=== PATIENT | female | born 1995 | race Caucasian/White ===

== ENCOUNTER → 2017-07-04 | Outpatient (REF) | payer MEDICARE, MEDICAID ==
[2016-01-11 12:26] VITALS: BMI 21.8
[~2017-07-04] MED LIST: ACET-1966 PO; ALB18R INH; ALBU8.5H12 IH; ALPR-1 PO; ALPR-429 PO; AMLO-96 PO; AMLO2.5T75 PO; AMOX-559 PO; ARIP10TA4 PO; ARIP15TA9 PO; ASPI-839 PO; ATOR10TA24 PO; AZIT-1 PO; AZIT-18 PO; BIRTH CONT; CALC-488 PO; CALC667T3 PO; CELLC500PT PO; CHOL200051 PO; CIN30PT PO; CINA90TA2 PO; CIPR-344 PO; CIPR-345 PO; CLON-392 PO; DIPH-740 PO; DOXA2TAB57 PO; ERGO500014 PO; FLUO-202 PO; FOLI-85 PO; FOLI1CAP19 PO; GUAN2TAB15 PO; HYDR-385 PO; HYDR-4309 PO; LEFL20TA6 PO; LEVO-85 PO; LIDO5CRE13 TP; LOR5/325 PO; MECL12.5 PO; MECL25TA9 PO; MEDR10TA57 PO; MELA3TAB45 PO; METR-1 PO; OLAN10TA25 PO; OLAN15TA23 PO; OLAN2.5T22 PO; OLAN2.5T3 PO; OMEP40CA45 PO; ONDA4TAB PO; ONDA4TAB97 PO; OXYC-865 PO; PANT40TA65 PO; PER PO; POLY17PO25 PO; PRE5 PO; PRED20TA6 PO; PRED5SOL PO; PROM-110 PO; RANI-324 PO; SERT-1 PO; SERT-181 PO; SEVE800T16 PO; SIRO0.5T; SODI453.2 PO; SULF-198 PO; VANC1VIA12 IV; [UNRECOGNIZED DRUG - CODE] PO; [UNRECOGNIZED DRUG - CODE] PO
== END ==
LOC: ZZSENDIN 09:48
PROVIDERS: ATTEND Orthopaedic Surgery Hand Surgery
DX: Z01.812 Encounter for preprocedural laboratory examination (principal)
CPT/HCPCS: 82040; 82247; 82310; 82374; 82435; 82565; 82947; 84075; 84132; 84155; 84295; 84450; 84460; 84520

== ENCOUNTER 2017-07-07 12:08 | Outpatient (RCR) | payer MEDICARE, MEDICAID ==
[2016-01-11 12:26] VITALS: BMI 21.8
[~2017-07-07 12:08] MED LIST changes: -BIRTH CONT; -MEDR10TA57 PO
[2017-07-07] MEDS: DAPTOMYCIN IVPB SCH (17:18)
[2017-07-07] MEDS: NS 0.9% IVPB SCH (17:18)
[2017-07-09] MEDS: DAPTOMYCIN IVPB SCH (17:43)
[2017-07-09] MEDS: NS 0.9% IVPB SCH (17:43)
[2017-07-11] MEDS: DAPTOMYCIN IVPB SCH (17:00)
[2017-07-11] MEDS: NS 0.9% IVPB SCH (17:00)
[2017-07-12] MEDS ORDERED: MEDR10TA57 PO (15:23)
[2017-07-13] MEDS: NS 0.9% IVPB PRN (16:36)
[2017-07-13] MEDS: DAPTOMYCIN IVPB PRN (16:36)
[2017-07-16] MEDS: NS 0.9% IVPB PRN (18:13)
[2017-07-16] MEDS: DAPTOMYCIN IVPB PRN (18:13)
[2017-07-16] MEDS ORDERED: BIRTH CONT (21:06)
[2017-07-21] MEDS: NS 0.9% IVPB PRN (18:22)
[2017-07-21] MEDS: DAPTOMYCIN IVPB PRN (18:22)
[2017-07-21] MEDS ORDERED: ONDA4TAB97 PO (19:57)
[2017-07-21] MEDS ORDERED: PROM-110 PO (19:57)
== END 2017-08-08 12:55 | disposition home or self-care (01) ==
LOC: SPU 12:08
PROVIDERS: ATTEND Orthopaedic Surgery Hand Surgery
DX: A41.9 Sepsis, unspecified organism (principal)
CPT/HCPCS: 96365; J0878; J7050; 85025

== ENCOUNTER → 2017-07-21 09:25 | Outpatient (RCR) | payer MEDICARE, MEDICAID ==
[2016-01-11 12:26] VITALS: Ht 151.6 cm; Wt 55.6 kg
[2016-07-22] MEDS: HEPARIN SOD (PORCINE) LOAD IVP PRN (15:52)
[2016-07-22] MEDS: HEPARIN (PORCINE) 1000 UNIT/ML (DIALYSIS) IVP PRN (15:52)
[2016-07-24] MEDS: HEPARIN (PORCINE) 1000 UNIT/ML (DIALYSIS) IVP PRN (12:46)
[2016-07-24] MEDS: HEPARIN SOD (PORCINE) LOAD IVP PRN (12:46)
[2016-07-26] MEDS: HEPARIN (PORCINE) 1000 UNIT/ML (DIALYSIS) IVP PRN (15:55)
[2016-07-26] MEDS: HEPARIN SOD (PORCINE) LOAD IVP PRN (15:56)
[2016-07-29] MEDS: HEPARIN SOD (PORCINE) LOAD IVP PRN (15:20)
[2016-07-29] MEDS: HEPARIN (PORCINE) 1000 UNIT/ML (DIALYSIS) IVP PRN (15:20)
[2016-07-31] MEDS: HEPARIN (PORCINE) 1000 UNIT/ML (DIALYSIS) IVP PRN (15:24)
[2016-07-31] MEDS: HEPARIN SOD (PORCINE) LOAD IVP PRN (15:24)
[2016-07-31] MEDS: SODIUM FERRIC GLUC 62.5 MG/5ML IVP PRN (15:42)
[2016-07-31 16:55] LABS: PLATELET COUNT, AUTOMATED 191 K/uL (150-450)
[2016-08-05] MEDS: HEPARIN (PORCINE) 1000 UNIT/ML (DIALYSIS) IVP PRN (15:16)
[2016-08-05] MEDS: HEPARIN SOD (PORCINE) LOAD IVP PRN (15:16)
[2016-08-07] MEDS: HEPARIN SOD (PORCINE) LOAD IVP PRN (15:30)
[2016-08-07] MEDS: HEPARIN (PORCINE) 1000 UNIT/ML (DIALYSIS) IVP PRN (15:30)
[2016-08-07] MEDS: PARICALCITOL 2 MCG/ML VIAL IVP PRN (15:58)
[2016-08-09] MEDS: HEPARIN SOD (PORCINE) LOAD IVP PRN (14:29)
[2016-08-09] MEDS: HEPARIN (PORCINE) 1000 UNIT/ML (DIALYSIS) IVP PRN (14:29)
[2016-08-09] MEDS: PARICALCITOL 2 MCG/ML VIAL IVP PRN (15:06)
[2016-08-09] MEDS: DARBEPOETIN ESRD 40MCG/ML IVP PRN (15:06)
[2016-08-12] MEDS: HEPARIN SOD (PORCINE) LOAD IVP PRN (15:28)
[2016-08-12] MEDS: HEPARIN (PORCINE) 1000 UNIT/ML (DIALYSIS) IVP PRN (15:28)
[2016-08-12] MEDS: PARICALCITOL 2 MCG/ML VIAL IVP PRN (15:54)
[2016-08-14] MEDS: HEPARIN (PORCINE) 1000 UNIT/ML (DIALYSIS) IVP PRN (15:23)
[2016-08-14] MEDS: HEPARIN SOD (PORCINE) LOAD IVP PRN (15:23)
[2016-08-14] MEDS: SODIUM FERRIC GLUC 62.5 MG/5ML IVP PRN (15:41)
[2016-08-14] MEDS: PARICALCITOL 2 MCG/ML VIAL IVP PRN (15:42)
[2016-08-16] MEDS: HEPARIN SOD (PORCINE) LOAD IVP PRN (14:07)
[2016-08-16] MEDS: HEPARIN (PORCINE) 1000 UNIT/ML (DIALYSIS) IVP PRN (14:07)
[2016-08-16] MEDS: PARICALCITOL 2 MCG/ML VIAL IVP PRN (14:33)
[2016-08-16] MEDS: DARBEPOETIN ESRD 40MCG/ML IVP PRN (14:34)
[2016-08-19] MEDS: HEPARIN (PORCINE) 1000 UNIT/ML (DIALYSIS) IVP PRN (15:41)
[2016-08-19] MEDS: HEPARIN SOD (PORCINE) LOAD IVP PRN (15:41)
[2016-08-19] MEDS: LIDOCAINE/SOD BICARB 8.4% SYR ID PRN (15:41)
[2016-08-21] MEDS: HEPARIN (PORCINE) 1000 UNIT/ML (DIALYSIS) IVP PRN (15:17)
[2016-08-21] MEDS: HEPARIN SOD (PORCINE) LOAD IVP PRN (15:17)
[2016-08-21] MEDS: PARICALCITOL 2 MCG/ML VIAL IVP PRN (15:48)
[2016-08-23] MEDS: HEPARIN (PORCINE) 1000 UNIT/ML (DIALYSIS) IVP PRN (15:07)
[2016-08-23] MEDS: HEPARIN SOD (PORCINE) LOAD IVP PRN (15:07)
[2016-08-23] MEDS: PARICALCITOL 2 MCG/ML VIAL IVP PRN (15:40)
[2016-08-23] MEDS: DARBEPOETIN ESRD 40MCG/ML IVP PRN (15:41)
[2016-08-26] MEDS: HEPARIN (PORCINE) 1000 UNIT/ML (DIALYSIS) IVP PRN (15:32)
[2016-08-26] MEDS: HEPARIN SOD (PORCINE) LOAD IVP PRN (15:33)
[2016-08-26] MEDS: PARICALCITOL 2 MCG/ML VIAL IVP PRN (16:08)
[2016-08-28] MEDS: HEPARIN SOD (PORCINE) LOAD IVP PRN (15:04)
[2016-08-28] MEDS: HEPARIN (PORCINE) 1000 UNIT/ML (DIALYSIS) IVP PRN (15:04)
[2016-08-28] MEDS: SODIUM FERRIC GLUC 62.5 MG/5ML IVP PRN (15:40)
[2016-08-28] MEDS: PARICALCITOL 2 MCG/ML VIAL IVP PRN (15:40)
[2016-08-30] MEDS: HEPARIN SOD (PORCINE) LOAD IVP PRN (15:30)
[2016-08-30] MEDS: HEPARIN (PORCINE) 1000 UNIT/ML (DIALYSIS) IVP PRN (15:31)
[2016-08-30] MEDS: PARICALCITOL 2 MCG/ML VIAL IVP PRN (15:47)
[2016-08-30] MEDS: DARBEPOETIN ESRD 25 MCG/ML IVP PRN (15:47)
[2016-08-30] MEDS: LOPERAMIDE HCL 2 MG CAP PO PRN (18:03)
[2016-09-02] MEDS: HEPARIN SOD (PORCINE) LOAD IVP PRN (15:23)
[2016-09-02] MEDS: HEPARIN (PORCINE) 1000 UNIT/ML (DIALYSIS) IVP PRN (15:23)
[2016-09-02] MEDS: PARICALCITOL 2 MCG/ML VIAL IVP PRN (15:57)
[2016-09-02] MEDS: LOPERAMIDE HCL 2 MG CAP PO PRN (16:39)
[2016-09-04] MEDS: HEPARIN SOD (PORCINE) LOAD IVP PRN (15:48)
[2016-09-04] MEDS: HEPARIN (PORCINE) 1000 UNIT/ML (DIALYSIS) IVP PRN (15:48)
[2016-09-04] MEDS: PARICALCITOL 2 MCG/ML VIAL IVP PRN (16:06)
[2016-09-04 16:21] LABS: PLATELET COUNT, AUTOMATED 197 K/uL (150-450)
[2016-09-06] MEDS: HEPARIN (PORCINE) 1000 UNIT/ML (DIALYSIS) IVP PRN (15:42)
[2016-09-06] MEDS: HEPARIN SOD (PORCINE) LOAD IVP PRN (15:43)
[2016-09-06] MEDS: PARICALCITOL 2 MCG/ML VIAL IVP PRN (16:11)
[2016-09-06] MEDS: DARBEPOETIN ESRD 25 MCG/ML IVP PRN (16:12)
[2016-09-06] MEDS: LOPERAMIDE HCL 2 MG CAP PO PRN (17:02)
[2016-09-06] MEDS: PROMETHAZINE HCL 25 MG TAB PO PRN (18:08)
[2016-09-09] MEDS: HEPARIN (PORCINE) 1000 UNIT/ML (DIALYSIS) IVP PRN (15:54)
[2016-09-09] MEDS: HEPARIN SOD (PORCINE) LOAD IVP PRN (15:54)
[2016-09-09] MEDS: PARICALCITOL 2 MCG/ML VIAL IVP PRN (16:38)
[2016-09-11] MEDS: HEPARIN SOD (PORCINE) LOAD IVP PRN (15:53)
[2016-09-11] MEDS: HEPARIN (PORCINE) 1000 UNIT/ML (DIALYSIS) IVP PRN (15:53)
[2016-09-11] MEDS: LIDOCAINE/SOD BICARB 8.4% SYR ID PRN (15:57)
[2016-09-11] MEDS: SODIUM FERRIC GLUC 62.5 MG/5ML IVP PRN (17:13)
[2016-09-11] MEDS: PARICALCITOL 2 MCG/ML VIAL IVP PRN (17:13)
[2016-09-13] MEDS: HEPARIN SOD (PORCINE) LOAD IVP PRN (15:33)
[2016-09-13] MEDS: HEPARIN (PORCINE) 1000 UNIT/ML (DIALYSIS) IVP PRN (15:33)
[2016-09-13] MEDS: LIDOCAINE/SOD BICARB 8.4% SYR ID PRN (15:38)
[2016-09-13] MEDS: PARICALCITOL 2 MCG/ML VIAL IVP PRN (16:46)
[2016-09-13] MEDS: DARBEPOETIN ESRD 25 MCG/ML IVP PRN (16:47)
[2016-09-16] MEDS: HEPARIN SOD (PORCINE) LOAD IVP PRN (14:56)
[2016-09-16] MEDS: HEPARIN (PORCINE) 1000 UNIT/ML (DIALYSIS) IVP PRN (14:56)
[2016-09-16] MEDS: LIDOCAINE/SOD BICARB 8.4% SYR ID PRN (15:00)
[2016-09-16] MEDS: PARICALCITOL 2 MCG/ML VIAL IVP PRN (16:12)
[2016-09-18] MEDS: HEPARIN SOD (PORCINE) LOAD IVP PRN (15:52)
[2016-09-18] MEDS: HEPARIN (PORCINE) 1000 UNIT/ML (DIALYSIS) IVP PRN (15:52)
[2016-09-18] MEDS: LIDOCAINE/SOD BICARB 8.4% SYR ID PRN (16:03)
[2016-09-18] MEDS: PARICALCITOL 2 MCG/ML VIAL IVP PRN (16:41)
[2016-09-20] MEDS: HEPARIN SOD (PORCINE) LOAD IVP PRN (15:15)
[2016-09-20] MEDS: HEPARIN (PORCINE) 1000 UNIT/ML (DIALYSIS) IVP PRN (15:16)
[2016-09-20] MEDS: PARICALCITOL 2 MCG/ML VIAL IVP PRN (15:37)
[2016-09-20] MEDS: DARBEPOETIN ESRD 40MCG/ML IVP PRN (15:37)
[2016-09-20] MEDS: LOPERAMIDE HCL 2 MG CAP PO PRN (16:01)
[2016-09-23] MEDS: HEPARIN SOD (PORCINE) LOAD IVP PRN (15:08)
[2016-09-23] MEDS: HEPARIN (PORCINE) 1000 UNIT/ML (DIALYSIS) IVP PRN (15:08)
[2016-09-23] MEDS: LIDOCAINE/SOD BICARB 8.4% SYR ID PRN (15:08)
[2016-09-23] MEDS: PARICALCITOL 2 MCG/ML VIAL IVP PRN (15:28)
[2016-09-25] MEDS: HEPARIN (PORCINE) 1000 UNIT/ML (DIALYSIS) IVP PRN (14:40)
[2016-09-25] MEDS: LIDOCAINE/SOD BICARB 8.4% SYR ID PRN (14:40)
[2016-09-25] MEDS: HEPARIN SOD (PORCINE) LOAD IVP PRN (14:40)
[2016-09-25] MEDS: PARICALCITOL 2 MCG/ML VIAL IVP PRN (14:56)
[2016-09-25] MEDS: SODIUM FERRIC GLUC 62.5 MG/5ML IVP PRN (14:56)
[2016-09-27] MEDS: LIDOCAINE/SOD BICARB 8.4% SYR ID PRN (14:27)
[2016-09-27] MEDS: HEPARIN SOD (PORCINE) LOAD IVP PRN (14:27)
[2016-09-27] MEDS: HEPARIN (PORCINE) 1000 UNIT/ML (DIALYSIS) IVP PRN (14:27)
[2016-09-27] MEDS: PARICALCITOL 2 MCG/ML VIAL IVP PRN (15:15)
[2016-09-27] MEDS: DARBEPOETIN ESRD 40MCG/ML IVP PRN (15:15)
[2016-09-30] MEDS: HEPARIN (PORCINE) 1000 UNIT/ML (DIALYSIS) IVP PRN (14:46)
[2016-09-30] MEDS: HEPARIN SOD (PORCINE) LOAD IVP PRN (14:46)
[2016-09-30] MEDS: LIDOCAINE/SOD BICARB 8.4% SYR ID PRN (14:46)
[2016-09-30] MEDS: PARICALCITOL 2 MCG/ML VIAL IVP PRN (15:11)
[2016-10-02] MEDS: LIDOCAINE/SOD BICARB 8.4% SYR ID PRN (14:39)
[2016-10-02] MEDS: HEPARIN SOD (PORCINE) LOAD IVP PRN (14:39)
[2016-10-02] MEDS: HEPARIN (PORCINE) 1000 UNIT/ML (DIALYSIS) IVP PRN (14:40)
[2016-10-02 15:32] LABS: PLATELET COUNT, AUTOMATED 169 K/uL (150-450)
[2016-10-02] MEDS: PARICALCITOL 2 MCG/ML VIAL IVP PRN (15:39)
[2016-10-04] MEDS: LIDOCAINE/SOD BICARB 8.4% SYR ID PRN (14:55)
[2016-10-04] MEDS: HEPARIN SOD (PORCINE) LOAD IVP PRN (14:56)
[2016-10-04] MEDS: HEPARIN (PORCINE) 1000 UNIT/ML (DIALYSIS) IVP PRN (14:56)
[2016-10-04] MEDS: DARBEPOETIN ESRD 40MCG/ML IVP PRN (15:27)
[2016-10-04] MEDS: PARICALCITOL 2 MCG/ML VIAL IVP PRN (15:27)
[2016-10-07] MEDS: HEPARIN (PORCINE) 1000 UNIT/ML (DIALYSIS) IVP PRN (14:48)
[2016-10-07] MEDS: HEPARIN SOD (PORCINE) LOAD IVP PRN (14:48)
[2016-10-07] MEDS: PARICALCITOL 2 MCG/ML VIAL IVP PRN (15:26)
[2016-10-09] MEDS: HEPARIN (PORCINE) 1000 UNIT/ML (DIALYSIS) IVP PRN (15:10)
[2016-10-09] MEDS: HEPARIN SOD (PORCINE) LOAD IVP PRN (15:10)
[2016-10-09] MEDS: LIDOCAINE/SOD BICARB 8.4% SYR ID PRN (15:12)
[2016-10-09] MEDS: SODIUM FERRIC GLUC 62.5 MG/5ML IVP PRN (15:32)
[2016-10-09] MEDS: PARICALCITOL 2 MCG/ML VIAL IVP PRN (15:32)
[2016-10-11] MEDS: HEPARIN SOD (PORCINE) LOAD IVP PRN (14:10)
[2016-10-11] MEDS: LIDOCAINE/SOD BICARB 8.4% SYR ID PRN (14:10)
[2016-10-11] MEDS: HEPARIN (PORCINE) 1000 UNIT/ML (DIALYSIS) IVP PRN (14:10)
[2016-10-11] MEDS: PARICALCITOL 2 MCG/ML VIAL IVP PRN (14:23)
[2016-10-11] MEDS: DARBEPOETIN ESRD 40MCG/ML IVP PRN (14:24)
[2016-10-14] MEDS: HEPARIN SOD (PORCINE) LOAD IVP PRN (14:53)
[2016-10-14] MEDS: LIDOCAINE/SOD BICARB 8.4% SYR ID PRN (14:53)
[2016-10-14] MEDS: HEPARIN (PORCINE) 1000 UNIT/ML (DIALYSIS) IVP PRN (14:53)
[2016-10-14] MEDS: PARICALCITOL 2 MCG/ML VIAL IVP PRN (15:41)
[2016-10-16] MEDS: LIDOCAINE/SOD BICARB 8.4% SYR ID PRN (14:35)
[2016-10-16] MEDS: HEPARIN (PORCINE) 1000 UNIT/ML (DIALYSIS) IVP PRN (14:35)
[2016-10-16] MEDS: HEPARIN SOD (PORCINE) LOAD IVP PRN (14:35)
[2016-10-16] MEDS: PARICALCITOL 2 MCG/ML VIAL IVP PRN (15:00)
[2016-10-18] MEDS: HEPARIN (PORCINE) 1000 UNIT/ML (DIALYSIS) IVP PRN (14:56)
[2016-10-18] MEDS: HEPARIN SOD (PORCINE) LOAD IVP PRN (14:56)
[2016-10-18] MEDS: PARICALCITOL 2 MCG/ML VIAL IVP PRN (15:30)
[2016-10-18] MEDS: DARBEPOETIN ESRD 40MCG/ML IVP PRN (15:30)
[2016-10-21] MEDS: LIDOCAINE/SOD BICARB 8.4% SYR ID PRN (14:35)
[2016-10-21] MEDS: HEPARIN SOD (PORCINE) LOAD IVP PRN (14:35)
[2016-10-21] MEDS: HEPARIN (PORCINE) 1000 UNIT/ML (DIALYSIS) IVP PRN (14:35)
[2016-10-21] MEDS: PARICALCITOL 2 MCG/ML VIAL IVP PRN (16:12)
[2016-10-23] MEDS: HEPARIN SOD (PORCINE) LOAD IVP PRN (14:32)
[2016-10-23] MEDS: LIDOCAINE/SOD BICARB 8.4% SYR ID PRN (14:32)
[2016-10-23] MEDS: HEPARIN (PORCINE) 1000 UNIT/ML (DIALYSIS) IVP PRN (14:32)
[2016-10-23] MEDS: SODIUM FERRIC GLUC 62.5 MG/5ML IVP PRN (15:31)
[2016-10-23] MEDS: PARICALCITOL 2 MCG/ML VIAL IVP PRN (15:31)
[2016-10-25] MEDS: HEPARIN (PORCINE) 1000 UNIT/ML (DIALYSIS) IVP PRN (13:48)
[2016-10-25] MEDS: HEPARIN SOD (PORCINE) LOAD IVP PRN (13:49)
[2016-10-25] MEDS: LIDOCAINE/SOD BICARB 8.4% SYR ID PRN (13:50)
[2016-10-25] MEDS: PARICALCITOL 2 MCG/ML VIAL IVP PRN (15:01)
[2016-10-25] MEDS: DARBEPOETIN ESRD 40MCG/ML IVP PRN (15:01)
[2016-10-28] MEDS: HEPARIN (PORCINE) 1000 UNIT/ML (DIALYSIS) IVP PRN (13:48)
[2016-10-28] MEDS: HEPARIN SOD (PORCINE) LOAD IVP PRN (13:48)
[2016-10-28] MEDS: LIDOCAINE/SOD BICARB 8.4% SYR ID PRN (13:49)
[2016-10-28] MEDS: PARICALCITOL 2 MCG/ML VIAL IVP PRN (14:25)
[2016-10-30] MEDS: LIDOCAINE/SOD BICARB 8.4% SYR ID PRN (13:47)
[2016-10-30] MEDS: HEPARIN SOD (PORCINE) LOAD IVP PRN (13:47)
[2016-10-30] MEDS: HEPARIN (PORCINE) 1000 UNIT/ML (DIALYSIS) IVP PRN (13:47)
[2016-10-30] MEDS: PARICALCITOL 2 MCG/ML VIAL IVP PRN (14:58)
[2016-11-01] MEDS: HEPARIN (PORCINE) 1000 UNIT/ML (DIALYSIS) IVP PRN (14:08)
[2016-11-01] MEDS: LIDOCAINE/SOD BICARB 8.4% SYR ID PRN (14:08)
[2016-11-01] MEDS: HEPARIN SOD (PORCINE) LOAD IVP PRN (14:08)
[2016-11-01] MEDS: DARBEPOETIN ESRD 40MCG/ML IVP PRN (15:06)
[2016-11-01] MEDS: PARICALCITOL 2 MCG/ML VIAL IVP PRN (15:06)
[2016-11-04] MEDS: HEPARIN (PORCINE) 1000 UNIT/ML (DIALYSIS) IVP PRN (13:31)
[2016-11-04] MEDS: HEPARIN SOD (PORCINE) LOAD IVP PRN (13:31)
[2016-11-04] MEDS: LIDOCAINE/SOD BICARB 8.4% SYR ID PRN (13:31)
[2016-11-04] MEDS: PARICALCITOL 2 MCG/ML VIAL IVP PRN (14:29)
[2016-11-06] MEDS: HEPARIN (PORCINE) 1000 UNIT/ML (DIALYSIS) IVP PRN (14:33)
[2016-11-06] MEDS: LIDOCAINE/SOD BICARB 8.4% SYR ID PRN (14:33)
[2016-11-06] MEDS: HEPARIN SOD (PORCINE) LOAD IVP PRN (14:33)
[2016-11-06] MEDS: SODIUM FERRIC GLUC 62.5 MG/5ML IVP PRN (15:12)
[2016-11-06] MEDS: PARICALCITOL 2 MCG/ML VIAL IVP PRN (15:12)
[2016-11-06 15:24] LABS: PLATELET COUNT, AUTOMATED 175 K/uL (150-450)
[2016-11-08] MEDS: HEPARIN (PORCINE) 1000 UNIT/ML (DIALYSIS) IVP PRN (14:28)
[2016-11-08] MEDS: HEPARIN SOD (PORCINE) LOAD IVP PRN (14:28)
[2016-11-08] MEDS: DARBEPOETIN ESRD 25 MCG/ML IVP PRN (15:16)
[2016-11-08] MEDS: PARICALCITOL 2 MCG/ML VIAL IVP PRN (15:17)
[2016-11-11] MEDS: HEPARIN (PORCINE) 1000 UNIT/ML (DIALYSIS) IVP PRN (14:36)
[2016-11-11] MEDS: HEPARIN SOD (PORCINE) LOAD IVP PRN (14:36)
[2016-11-11] MEDS: LIDOCAINE/SOD BICARB 8.4% SYR ID PRN (14:36)
[2016-11-11] MEDS: PARICALCITOL 2 MCG/ML VIAL IVP PRN (15:10)
[2016-11-13] MEDS: HEPARIN (PORCINE) 1000 UNIT/ML (DIALYSIS) IVP PRN (14:48)
[2016-11-13] MEDS: HEPARIN SOD (PORCINE) LOAD IVP PRN (14:48)
[2016-11-13] MEDS: LIDOCAINE/SOD BICARB 8.4% SYR ID PRN (14:48)
[2016-11-13] MEDS: PARICALCITOL 2 MCG/ML VIAL IVP PRN (15:59)
[2016-11-13] MEDS: SODIUM FERRIC GLUC 62.5 MG/5ML IVP PRN (15:59)
[2016-11-15] MEDS: HEPARIN (PORCINE) 1000 UNIT/ML (DIALYSIS) IVP PRN (14:14)
[2016-11-15] MEDS: HEPARIN SOD (PORCINE) LOAD IVP PRN (14:15)
[2016-11-15] MEDS: PARICALCITOL 2 MCG/ML VIAL IVP PRN (15:05)
[2016-11-15] MEDS: SODIUM FERRIC GLUC 62.5 MG/5ML IVP PRN (15:05)
[2016-11-15] MEDS: DARBEPOETIN ESRD 25 MCG/ML IVP PRN (15:05)
[2016-11-18] MEDS: LIDOCAINE/SOD BICARB 8.4% SYR ID PRN (14:18)
[2016-11-18] MEDS: HEPARIN (PORCINE) 1000 UNIT/ML (DIALYSIS) IVP PRN (14:18)
[2016-11-18] MEDS: HEPARIN SOD (PORCINE) LOAD IVP PRN (14:19)
[2016-11-18] MEDS: PARICALCITOL 2 MCG/ML VIAL IVP PRN (15:10)
[2016-11-18] MEDS: SODIUM FERRIC GLUC 62.5 MG/5ML IVP PRN (15:11)
[2016-11-20] MEDS: SODIUM FERRIC GLUC 62.5 MG/5ML IVP PRN (15:22)
[2016-11-20] MEDS: HEPARIN (PORCINE) 1000 UNIT/ML (DIALYSIS) IVP PRN (15:22)
[2016-11-20] MEDS: LIDOCAINE/SOD BICARB 8.4% SYR ID PRN (15:22)
[2016-11-20] MEDS: PARICALCITOL 2 MCG/ML VIAL IVP PRN (15:22)
[2016-11-20] MEDS: HEPARIN SOD (PORCINE) LOAD IVP PRN (15:22)
[2016-11-22] MEDS: HEPARIN SOD (PORCINE) LOAD IVP PRN (14:15)
[2016-11-22] MEDS: HEPARIN (PORCINE) 1000 UNIT/ML (DIALYSIS) IVP PRN (14:15)
[2016-11-22] MEDS: LIDOCAINE/SOD BICARB 8.4% SYR ID PRN (14:15)
[2016-11-22] MEDS: DARBEPOETIN ESRD 25 MCG/ML IVP PRN (14:40)
[2016-11-22] MEDS: PARICALCITOL 2 MCG/ML VIAL IVP PRN (14:40)
[2016-11-25] MEDS: HEPARIN SOD (PORCINE) LOAD IVP PRN (14:16)
[2016-11-25] MEDS: HEPARIN (PORCINE) 1000 UNIT/ML (DIALYSIS) IVP PRN (14:16)
[2016-11-25] MEDS: LIDOCAINE/SOD BICARB 8.4% SYR ID PRN (14:21)
[2016-11-25] MEDS: PARICALCITOL 2 MCG/ML VIAL IVP PRN (15:16)
[2016-11-27] MEDS: HEPARIN (PORCINE) 1000 UNIT/ML (DIALYSIS) IVP PRN (14:27)
[2016-11-27] MEDS: LIDOCAINE/SOD BICARB 8.4% SYR ID PRN (14:27)
[2016-11-27] MEDS: HEPARIN SOD (PORCINE) LOAD IVP PRN (14:27)
[2016-11-27] MEDS: PARICALCITOL 2 MCG/ML VIAL IVP PRN (14:43)
[2016-11-27] MEDS: SODIUM FERRIC GLUC 62.5 MG/5ML IVP PRN (14:43)
[2016-11-29] MEDS: LIDOCAINE/SOD BICARB 8.4% SYR ID PRN (14:10)
[2016-11-29] MEDS: HEPARIN SOD (PORCINE) LOAD IVP PRN (14:10)
[2016-11-29] MEDS: HEPARIN (PORCINE) 1000 UNIT/ML (DIALYSIS) IVP PRN (14:10)
[2016-11-29] MEDS: PARICALCITOL 2 MCG/ML VIAL IVP PRN (15:34)
[2016-11-29] MEDS: DARBEPOETIN ESRD 25 MCG/ML IVP PRN (15:34)
[2016-12-02] MEDS: HEPARIN (PORCINE) 1000 UNIT/ML (DIALYSIS) IVP PRN (13:16)
[2016-12-02] MEDS: LIDOCAINE/SOD BICARB 8.4% SYR ID PRN (13:16)
[2016-12-02] MEDS: HEPARIN SOD (PORCINE) LOAD IVP PRN (13:16)
[2016-12-02] MEDS: PARICALCITOL 2 MCG/ML VIAL IVP PRN (13:39)
[2016-12-04] MEDS: HEPARIN (PORCINE) 1000 UNIT/ML (DIALYSIS) IVP PRN (12:56)
[2016-12-04] MEDS: HEPARIN SOD (PORCINE) LOAD IVP PRN (12:56)
[2016-12-04] MEDS: LIDOCAINE/SOD BICARB 8.4% SYR ID PRN (12:57)
[2016-12-04] MEDS: SODIUM FERRIC GLUC 62.5 MG/5ML IVP PRN (13:41)
[2016-12-04] MEDS: PARICALCITOL 2 MCG/ML VIAL IVP PRN (13:41)
[2016-12-06] MEDS: LIDOCAINE/SOD BICARB 8.4% SYR ID PRN (12:14)
[2016-12-06] MEDS: HEPARIN (PORCINE) 1000 UNIT/ML (DIALYSIS) IVP PRN (12:14)
[2016-12-06] MEDS: HEPARIN SOD (PORCINE) LOAD IVP PRN (12:15)
[2016-12-06] MEDS: DARBEPOETIN ESRD 25 MCG/ML IVP PRN (12:54)
[2016-12-06] MEDS: PARICALCITOL 2 MCG/ML VIAL IVP PRN (12:54)
[2016-12-09] MEDS: HEPARIN SOD (PORCINE) LOAD IVP PRN (14:10)
[2016-12-09] MEDS: HEPARIN (PORCINE) 1000 UNIT/ML (DIALYSIS) IVP PRN (14:10)
[2016-12-09] MEDS: LIDOCAINE/SOD BICARB 8.4% SYR ID PRN (14:10)
[2016-12-09] MEDS: PARICALCITOL 2 MCG/ML VIAL IVP PRN (15:07)
[2016-12-10] MEDS: LIDOCAINE/SOD BICARB 8.4% SYR ID PRN (10:24)
[2016-12-10] MEDS: HEPARIN (PORCINE) 1000 UNIT/ML (DIALYSIS) IVP PRN (10:24)
[2016-12-10] MEDS: HEPARIN SOD (PORCINE) LOAD IVP PRN (10:25)
[2016-12-11] MEDS: HEPARIN SOD (PORCINE) LOAD IVP PRN (14:19)
[2016-12-11] MEDS: HEPARIN (PORCINE) 1000 UNIT/ML (DIALYSIS) IVP PRN (14:19)
[2016-12-11] MEDS: LIDOCAINE/SOD BICARB 8.4% SYR ID PRN (14:20)
[2016-12-11 14:56] LABS: PLATELET COUNT, AUTOMATED 223 K/uL (150-450)
[2016-12-11] MEDS: SODIUM FERRIC GLUC 62.5 MG/5ML IVP PRN (15:00)
[2016-12-11] MEDS: PARICALCITOL 2 MCG/ML VIAL IVP PRN (15:01)
[2016-12-13] MEDS: LIDOCAINE/SOD BICARB 8.4% SYR ID PRN (13:36)
[2016-12-13] MEDS: HEPARIN SOD (PORCINE) LOAD IVP PRN (13:37)
[2016-12-13] MEDS: HEPARIN (PORCINE) 1000 UNIT/ML (DIALYSIS) IVP PRN (13:37)
[2016-12-13] MEDS: PARICALCITOL 2 MCG/ML VIAL IVP PRN (14:12)
[2016-12-16] MEDS: HEPARIN SOD (PORCINE) LOAD IVP PRN (13:48)
[2016-12-16] MEDS: HEPARIN (PORCINE) 1000 UNIT/ML (DIALYSIS) IVP PRN (13:48)
[2016-12-16] MEDS: PARICALCITOL 2 MCG/ML VIAL IVP PRN (14:29)
[2016-12-18] MEDS: HEPARIN (PORCINE) 1000 UNIT/ML (DIALYSIS) IVP PRN (14:24)
[2016-12-18] MEDS: LIDOCAINE/SOD BICARB 8.4% SYR ID PRN (14:24)
[2016-12-18] MEDS: HEPARIN SOD (PORCINE) LOAD IVP PRN (14:25)
[2016-12-18] MEDS: SODIUM FERRIC GLUC 62.5 MG/5ML IVP PRN (15:08)
[2016-12-20] MEDS: HEPARIN (PORCINE) 1000 UNIT/ML (DIALYSIS) IVP PRN (14:49)
[2016-12-20] MEDS: HEPARIN SOD (PORCINE) LOAD IVP PRN (14:50)
[2016-12-25] MEDS: HEPARIN (PORCINE) 1000 UNIT/ML (DIALYSIS) IVP PRN (14:34)
[2016-12-25] MEDS: HEPARIN SOD (PORCINE) LOAD IVP PRN (14:34)
[2016-12-25] MEDS: LIDOCAINE/SOD BICARB 8.4% SYR ID PRN (14:35)
[2016-12-25] MEDS: SODIUM FERRIC GLUC 62.5 MG/5ML IVP PRN (15:26)
[2016-12-27] MEDS: LIDOCAINE/SOD BICARB 8.4% SYR ID PRN (15:02)
[2016-12-27] MEDS: HEPARIN SOD (PORCINE) LOAD IVP PRN (15:02)
[2016-12-27] MEDS: HEPARIN (PORCINE) 1000 UNIT/ML (DIALYSIS) IVP PRN (15:03)
[2016-12-27] MEDS: DARBEPOETIN ESRD 40MCG/ML IVP PRN (15:21)
[2016-12-30] MEDS: HEPARIN (PORCINE) 1000 UNIT/ML (DIALYSIS) IVP PRN (14:01)
[2016-12-30] MEDS: HEPARIN SOD (PORCINE) LOAD IVP PRN (14:01)
[2016-12-30] MEDS: LIDOCAINE/SOD BICARB 8.4% SYR ID PRN (14:18)
[2017-01-01] MEDS: LIDOCAINE/SOD BICARB 8.4% SYR ID PRN (14:33)
[2017-01-01] MEDS: HEPARIN (PORCINE) 1000 UNIT/ML (DIALYSIS) IVP PRN (14:33)
[2017-01-01] MEDS: HEPARIN SOD (PORCINE) LOAD IVP PRN (14:33)
[2017-01-01] MEDS: SODIUM FERRIC GLUC 62.5 MG/5ML IVP PRN (14:59)
[2017-01-03] MEDS: LIDOCAINE/SOD BICARB 8.4% SYR ID PRN (14:09)
[2017-01-03] MEDS: HEPARIN (PORCINE) 1000 UNIT/ML (DIALYSIS) IVP PRN (14:09)
[2017-01-03] MEDS: HEPARIN SOD (PORCINE) LOAD IVP PRN (14:09)
[2017-01-03] MEDS: DARBEPOETIN ESRD 40MCG/ML IVP PRN (15:07)
[2017-01-06] MEDS: LIDOCAINE/SOD BICARB 8.4% SYR ID PRN (14:11)
[2017-01-08] MEDS: HEPARIN (PORCINE) 1000 UNIT/ML (DIALYSIS) IVP PRN (13:51)
[2017-01-08] MEDS: HEPARIN SOD (PORCINE) LOAD IVP PRN (13:51)
[2017-01-08] MEDS: LIDOCAINE/SOD BICARB 8.4% SYR ID PRN (13:52)
[2017-01-08] MEDS: SODIUM FERRIC GLUC 62.5 MG/5ML IVP PRN (14:17)
[2017-01-08 14:23] LABS: PLATELET COUNT, AUTOMATED 164 K/uL (150-450)
[2017-01-10] MEDS: HEPARIN (PORCINE) 1000 UNIT/ML (DIALYSIS) IVP PRN (14:01)
[2017-01-10] MEDS: HEPARIN SOD (PORCINE) LOAD IVP PRN (14:01)
[2017-01-10] MEDS: LIDOCAINE/SOD BICARB 8.4% SYR ID PRN (14:03)
[2017-01-10] MEDS: DARBEPOETIN ESRD 40MCG/ML IVP PRN (14:32)
[2017-01-13] MEDS: HEPARIN SOD (PORCINE) LOAD IVP PRN (13:46)
[2017-01-13] MEDS: HEPARIN (PORCINE) 1000 UNIT/ML (DIALYSIS) IVP PRN (13:46)
[2017-01-13] MEDS: LIDOCAINE/SOD BICARB 8.4% SYR ID PRN (14:17)
[2017-01-15] MEDS: HEPARIN (PORCINE) 1000 UNIT/ML (DIALYSIS) IVP PRN (13:38)
[2017-01-15] MEDS: HEPARIN SOD (PORCINE) LOAD IVP PRN (13:39)
[2017-01-15] MEDS: SODIUM FERRIC GLUC 62.5 MG/5ML IVP PRN (14:23)
[2017-01-17] MEDS: HEPARIN (PORCINE) 1000 UNIT/ML (DIALYSIS) IVP PRN (14:17)
[2017-01-17] MEDS: LIDOCAINE/SOD BICARB 8.4% SYR ID PRN (14:17)
[2017-01-17] MEDS: HEPARIN SOD (PORCINE) LOAD IVP PRN (14:17)
[2017-01-17] MEDS: DARBEPOETIN ESRD 40MCG/ML IVP PRN (14:45)
[2017-01-20] MEDS: LIDOCAINE/SOD BICARB 8.4% SYR ID PRN (13:49)
[2017-01-20] MEDS: HEPARIN (PORCINE) 1000 UNIT/ML (DIALYSIS) IVP PRN (13:50)
[2017-01-20] MEDS: HEPARIN SOD (PORCINE) LOAD IVP PRN (13:50)
[2017-01-22] MEDS: HEPARIN (PORCINE) 1000 UNIT/ML (DIALYSIS) IVP PRN (14:19)
[2017-01-22] MEDS: LIDOCAINE/SOD BICARB 8.4% SYR ID PRN (14:19)
[2017-01-22] MEDS: HEPARIN SOD (PORCINE) LOAD IVP PRN (14:19)
[2017-01-22] MEDS: SODIUM FERRIC GLUC 62.5 MG/5ML IVP PRN (14:55)
[2017-01-24] MEDS: HEPARIN (PORCINE) 1000 UNIT/ML (DIALYSIS) IVP PRN (14:20)
[2017-01-24] MEDS: HEPARIN SOD (PORCINE) LOAD IVP PRN (14:20)
[2017-01-24] MEDS: LIDOCAINE/SOD BICARB 8.4% SYR ID PRN (14:21)
[2017-01-24] MEDS: DARBEPOETIN ESRD 40MCG/ML IVP PRN (14:42)
[2017-01-27] MEDS: HEPARIN SOD (PORCINE) LOAD IVP PRN (14:16)
[2017-01-27] MEDS: LIDOCAINE/SOD BICARB 8.4% SYR ID PRN (14:16)
[2017-01-27] MEDS: HEPARIN (PORCINE) 1000 UNIT/ML (DIALYSIS) IVP PRN (14:17)
[2017-01-29] MEDS: HEPARIN (PORCINE) 1000 UNIT/ML (DIALYSIS) IVP PRN (15:01)
[2017-01-29] MEDS: HEPARIN SOD (PORCINE) LOAD IVP PRN (15:01)
[2017-01-29] MEDS: LIDOCAINE/SOD BICARB 8.4% SYR ID PRN (15:02)
[2017-01-29] MEDS: SODIUM FERRIC GLUC 62.5 MG/5ML IVP PRN (15:28)
[2017-01-31] MEDS: LIDOCAINE/SOD BICARB 8.4% SYR ID PRN (14:27)
[2017-01-31] MEDS: HEPARIN SOD (PORCINE) LOAD IVP PRN (14:27)
[2017-01-31] MEDS: HEPARIN (PORCINE) 1000 UNIT/ML (DIALYSIS) IVP PRN (14:27)
[2017-01-31] MEDS: DARBEPOETIN ESRD 40MCG/ML IVP PRN (16:43)
[2017-02-03] MEDS: HEPARIN (PORCINE) 1000 UNIT/ML (DIALYSIS) IVP PRN (15:29)
[2017-02-03] MEDS: HEPARIN SOD (PORCINE) LOAD IVP PRN (15:29)
[2017-02-03] MEDS: LIDOCAINE/SOD BICARB 8.4% SYR ID PRN (15:29)
[2017-02-05] MEDS: LIDOCAINE/SOD BICARB 8.4% SYR ID PRN (15:12)
[2017-02-05] MEDS: HEPARIN SOD (PORCINE) LOAD IVP PRN (15:13)
[2017-02-05] MEDS: HEPARIN (PORCINE) 1000 UNIT/ML (DIALYSIS) IVP PRN (15:13)
[2017-02-05] MEDS: SODIUM FERRIC GLUC 62.5 MG/5ML IVP PRN (16:12)
[2017-02-05 16:23] LABS: PLATELET COUNT, AUTOMATED 193 K/uL (150-450)
[2017-02-07] MEDS: HEPARIN (PORCINE) 1000 UNIT/ML (DIALYSIS) IVP PRN (16:28)
[2017-02-07] MEDS: LIDOCAINE/SOD BICARB 8.4% SYR ID PRN (16:28)
[2017-02-07] MEDS: HEPARIN SOD (PORCINE) LOAD IVP PRN (16:28)
[2017-02-07] MEDS: DARBEPOETIN ESRD 40MCG/ML IVP PRN (17:31)
[2017-02-10] MEDS: LIDOCAINE/SOD BICARB 8.4% SYR ID PRN (16:35)
[2017-02-10] MEDS: HEPARIN SOD (PORCINE) LOAD IVP PRN (16:36)
[2017-02-10] MEDS: HEPARIN (PORCINE) 1000 UNIT/ML (DIALYSIS) IVP PRN (16:36)
[2017-02-12] MEDS: LIDOCAINE/SOD BICARB 8.4% SYR ID PRN (16:24)
[2017-02-12] MEDS: HEPARIN SOD (PORCINE) LOAD IVP PRN (16:24)
[2017-02-12] MEDS: HEPARIN (PORCINE) 1000 UNIT/ML (DIALYSIS) IVP PRN (16:24)
[2017-02-12] MEDS: SODIUM FERRIC GLUC 62.5 MG/5ML IVP PRN (16:47)
[2017-02-14] MEDS: LIDOCAINE/SOD BICARB 8.4% SYR ID PRN (15:59)
[2017-02-14] MEDS: HEPARIN SOD (PORCINE) LOAD IVP PRN (15:59)
[2017-02-14] MEDS: HEPARIN (PORCINE) 1000 UNIT/ML (DIALYSIS) IVP PRN (16:00)
[2017-02-14] MEDS: DARBEPOETIN ESRD 40MCG/ML IVP PRN (16:35)
[2017-02-17] MEDS: HEPARIN SOD (PORCINE) LOAD IVP PRN (15:45)
[2017-02-17] MEDS: HEPARIN (PORCINE) 1000 UNIT/ML (DIALYSIS) IVP PRN (15:45)
[2017-02-17] MEDS: LIDOCAINE/SOD BICARB 8.4% SYR ID PRN (15:51)
[2017-02-19] MEDS: LIDOCAINE/SOD BICARB 8.4% SYR ID PRN (15:00)
[2017-02-19] MEDS: HEPARIN SOD (PORCINE) LOAD IVP PRN (15:00)
[2017-02-19] MEDS: HEPARIN (PORCINE) 1000 UNIT/ML (DIALYSIS) IVP PRN (15:01)
[2017-02-19] MEDS: SODIUM FERRIC GLUC 62.5 MG/5ML IVP PRN (15:55)
[2017-02-21] MEDS: LIDOCAINE/SOD BICARB 8.4% SYR ID PRN (14:27)
[2017-02-21] MEDS: HEPARIN (PORCINE) 1000 UNIT/ML (DIALYSIS) IVP PRN (14:28)
[2017-02-21] MEDS: HEPARIN SOD (PORCINE) LOAD IVP PRN (14:28)
[2017-02-21] MEDS: DARBEPOETIN ESRD 40MCG/ML IVP PRN (14:58)
[2017-02-24] MEDS: HEPARIN (PORCINE) 1000 UNIT/ML (DIALYSIS) IVP PRN (14:51)
[2017-02-24] MEDS: LIDOCAINE/SOD BICARB 8.4% SYR ID PRN (14:52)
[2017-02-24] MEDS: HEPARIN SOD (PORCINE) LOAD IVP PRN (14:52)
[2017-02-26] MEDS: HEPARIN (PORCINE) 1000 UNIT/ML (DIALYSIS) IVP PRN (14:54)
[2017-02-26] MEDS: LIDOCAINE/SOD BICARB 8.4% SYR ID PRN (14:54)
[2017-02-26] MEDS: HEPARIN SOD (PORCINE) LOAD IVP PRN (14:55)
[2017-02-26] MEDS: SODIUM FERRIC GLUC 62.5 MG/5ML IVP PRN (15:22)
[2017-02-28] MEDS: LIDOCAINE/SOD BICARB 8.4% SYR ID PRN (14:53)
[2017-02-28] MEDS: HEPARIN (PORCINE) 1000 UNIT/ML (DIALYSIS) IVP PRN (14:54)
[2017-02-28] MEDS: HEPARIN SOD (PORCINE) LOAD IVP PRN (14:54)
[2017-02-28] MEDS: DARBEPOETIN ESRD 40MCG/ML IVP PRN (15:29)
[2017-03-03] MEDS: HEPARIN (PORCINE) 1000 UNIT/ML (DIALYSIS) IVP PRN (14:25)
[2017-03-03] MEDS: HEPARIN SOD (PORCINE) LOAD IVP PRN (14:25)
[2017-03-03] MEDS: LIDOCAINE/SOD BICARB 8.4% SYR ID PRN (14:25)
[2017-03-05] MEDS: HEPARIN SOD (PORCINE) LOAD IVP PRN (14:42)
[2017-03-05] MEDS: LIDOCAINE/SOD BICARB 8.4% SYR ID PRN (14:42)
[2017-03-05] MEDS: HEPARIN (PORCINE) 1000 UNIT/ML (DIALYSIS) IVP PRN (14:42)
[2017-03-05] MEDS: SODIUM FERRIC GLUC 62.5 MG/5ML IVP PRN (15:14)
[2017-03-05 15:27] LABS: PLATELET COUNT, AUTOMATED 180 K/uL (150-450)
[2017-03-07] MEDS: LIDOCAINE/SOD BICARB 8.4% SYR ID PRN (14:42)
[2017-03-07] MEDS: HEPARIN SOD (PORCINE) LOAD IVP PRN (14:42)
[2017-03-07] MEDS: HEPARIN (PORCINE) 1000 UNIT/ML (DIALYSIS) IVP PRN (14:43)
[2017-03-07] MEDS: DARBEPOETIN ESRD 40MCG/ML IVP PRN (14:57)
[2017-03-12] MEDS: LIDOCAINE/SOD BICARB 8.4% SYR ID PRN (14:28)
[2017-03-12] MEDS: HEPARIN SOD (PORCINE) LOAD IVP PRN (14:29)
[2017-03-12] MEDS: HEPARIN (PORCINE) 1000 UNIT/ML (DIALYSIS) IVP PRN (14:29)
[2017-03-12] MEDS: SODIUM FERRIC GLUC 62.5 MG/5ML IVP PRN (15:31)
[2017-03-14] MEDS: HEPARIN (PORCINE) 1000 UNIT/ML (DIALYSIS) IVP PRN (14:41)
[2017-03-14] MEDS: HEPARIN SOD (PORCINE) LOAD IVP PRN (14:41)
[2017-03-14] MEDS: DARBEPOETIN ESRD 40MCG/ML IVP PRN (14:42)
[2017-03-17] MEDS: LIDOCAINE/SOD BICARB 8.4% SYR ID PRN (15:06)
[2017-03-17] MEDS: HEPARIN (PORCINE) 1000 UNIT/ML (DIALYSIS) IVP PRN (15:06)
[2017-03-17] MEDS: HEPARIN SOD (PORCINE) LOAD IVP PRN (15:06)
[2017-03-19] MEDS: HEPARIN SOD (PORCINE) LOAD IVP PRN (16:16)
[2017-03-19] MEDS: HEPARIN (PORCINE) 1000 UNIT/ML (DIALYSIS) IVP PRN (16:17)
[2017-03-19] MEDS: LIDOCAINE/SOD BICARB 8.4% SYR ID PRN (16:17)
[2017-03-19] MEDS: SODIUM FERRIC GLUC 62.5 MG/5ML IVP PRN (16:42)
[2017-03-21] MEDS: HEPARIN (PORCINE) 1000 UNIT/ML (DIALYSIS) IVP PRN (15:22)
[2017-03-21] MEDS: HEPARIN SOD (PORCINE) LOAD IVP PRN (15:22)
[2017-03-21] MEDS: LIDOCAINE/SOD BICARB 8.4% SYR ID PRN (15:22)
[2017-03-21] MEDS: DARBEPOETIN ESRD 25 MCG/ML IVP PRN (16:13)
[2017-03-24] MEDS: LIDOCAINE/SOD BICARB 8.4% SYR ID PRN (15:40)
[2017-03-24] MEDS: HEPARIN (PORCINE) 1000 UNIT/ML (DIALYSIS) IVP PRN (15:41)
[2017-03-24] MEDS: HEPARIN SOD (PORCINE) LOAD IVP PRN (15:41)
[2017-03-26] MEDS: LIDOCAINE/SOD BICARB 8.4% SYR ID PRN (15:07)
[2017-03-26] MEDS: HEPARIN SOD (PORCINE) LOAD IVP PRN (15:08)
[2017-03-26] MEDS: HEPARIN (PORCINE) 1000 UNIT/ML (DIALYSIS) IVP PRN (15:08)
[2017-03-26] MEDS: SODIUM FERRIC GLUC 62.5 MG/5ML IVP PRN (15:40)
[2017-03-28] MEDS: LIDOCAINE/SOD BICARB 8.4% SYR ID PRN (15:52)
[2017-03-28] MEDS: HEPARIN (PORCINE) 1000 UNIT/ML (DIALYSIS) IVP PRN (15:52)
[2017-03-28] MEDS: HEPARIN SOD (PORCINE) LOAD IVP PRN (15:53)
[2017-03-28] MEDS: DARBEPOETIN ESRD 25 MCG/ML IVP PRN (16:14)
[2017-03-31] MEDS: LIDOCAINE/SOD BICARB 8.4% SYR ID PRN (14:50)
[2017-03-31] MEDS: HEPARIN SOD (PORCINE) LOAD IVP PRN (14:51)
[2017-03-31] MEDS: HEPARIN (PORCINE) 1000 UNIT/ML (DIALYSIS) IVP PRN (14:51)
[2017-04-02] MEDS: HEPARIN SOD (PORCINE) LOAD IVP PRN (15:29)
[2017-04-02] MEDS: LIDOCAINE/SOD BICARB 8.4% SYR ID PRN (15:29)
[2017-04-02] MEDS: HEPARIN (PORCINE) 1000 UNIT/ML (DIALYSIS) IVP PRN (15:30)
[2017-04-02 15:48] LABS: PLATELET COUNT, AUTOMATED 172 K/uL (150-450)
[2017-04-02] MEDS: SODIUM FERRIC GLUC 62.5 MG/5ML IVP PRN (15:55)
[2017-04-04] MEDS: LIDOCAINE/SOD BICARB 8.4% SYR ID PRN (15:09)
[2017-04-04] MEDS: HEPARIN (PORCINE) 1000 UNIT/ML (DIALYSIS) IVP PRN (15:09)
[2017-04-04] MEDS: HEPARIN SOD (PORCINE) LOAD IVP PRN (15:10)
[2017-04-07] MEDS: HEPARIN (PORCINE) 1000 UNIT/ML (DIALYSIS) IVP PRN (15:08)
[2017-04-07] MEDS: HEPARIN SOD (PORCINE) LOAD IVP PRN (15:08)
[2017-04-07] MEDS: LIDOCAINE/SOD BICARB 8.4% SYR ID PRN (15:08)
[2017-04-09] MEDS: HEPARIN (PORCINE) 1000 UNIT/ML (DIALYSIS) IVP PRN (15:03)
[2017-04-09] MEDS: LIDOCAINE/SOD BICARB 8.4% SYR ID PRN (15:03)
[2017-04-09] MEDS: HEPARIN SOD (PORCINE) LOAD IVP PRN (15:03)
[2017-04-09] MEDS: SODIUM FERRIC GLUC 62.5 MG/5ML IVP PRN (15:38)
[2017-04-11] MEDS: HEPARIN (PORCINE) 1000 UNIT/ML (DIALYSIS) IVP PRN (14:41)
[2017-04-11] MEDS: HEPARIN SOD (PORCINE) LOAD IVP PRN (14:42)
[2017-04-11] MEDS: LIDOCAINE/SOD BICARB 8.4% SYR ID PRN (14:42)
[2017-04-14] MEDS: LIDOCAINE/SOD BICARB 8.4% SYR ID PRN (15:13)
[2017-04-14] MEDS: HEPARIN (PORCINE) 1000 UNIT/ML (DIALYSIS) IVP PRN (15:13)
[2017-04-14] MEDS: HEPARIN SOD (PORCINE) LOAD IVP PRN (15:13)
[2017-04-16] MEDS: HEPARIN SOD (PORCINE) LOAD IVP PRN (15:17)
[2017-04-16] MEDS: HEPARIN (PORCINE) 1000 UNIT/ML (DIALYSIS) IVP PRN (15:17)
[2017-04-16] MEDS: LIDOCAINE/SOD BICARB 8.4% SYR ID PRN (15:17)
[2017-04-16] MEDS: SODIUM FERRIC GLUC 62.5 MG/5ML IVP PRN (15:51)
[2017-04-18] MEDS: LIDOCAINE/SOD BICARB 8.4% SYR ID PRN (15:52)
[2017-04-18] MEDS: HEPARIN SOD (PORCINE) LOAD IVP PRN (15:52)
[2017-04-18] MEDS: HEPARIN (PORCINE) 1000 UNIT/ML (DIALYSIS) IVP PRN (15:53)
[2017-04-18] MEDS: DARBEPOETIN ESRD 25 MCG/ML IVP PRN (16:07)
[2017-04-21] MEDS: LIDOCAINE/SOD BICARB 8.4% SYR ID PRN (15:15)
[2017-04-21] MEDS: HEPARIN (PORCINE) 1000 UNIT/ML (DIALYSIS) IVP PRN (15:15)
[2017-04-21] MEDS: HEPARIN SOD (PORCINE) LOAD IVP PRN (15:16)
[2017-04-23] MEDS: HEPARIN (PORCINE) 1000 UNIT/ML (DIALYSIS) IVP PRN (15:29)
[2017-04-23] MEDS: LIDOCAINE/SOD BICARB 8.4% SYR ID PRN (15:29)
[2017-04-23] MEDS: HEPARIN SOD (PORCINE) LOAD IVP PRN (15:30)
[2017-04-23] MEDS: SODIUM FERRIC GLUC 62.5 MG/5ML IVP PRN (15:54)
[2017-04-25] MEDS: HEPARIN (PORCINE) 1000 UNIT/ML (DIALYSIS) IVP PRN (15:33)
[2017-04-25] MEDS: LIDOCAINE/SOD BICARB 8.4% SYR ID PRN (15:33)
[2017-04-25] MEDS: HEPARIN SOD (PORCINE) LOAD IVP PRN (15:33)
[2017-04-25] MEDS: DARBEPOETIN ESRD 25 MCG/ML IVP PRN (15:54)
[2017-04-28] MEDS: LIDOCAINE/SOD BICARB 8.4% SYR ID PRN (15:10)
[2017-04-28] MEDS: HEPARIN (PORCINE) 1000 UNIT/ML (DIALYSIS) IVP PRN (15:11)
[2017-04-28] MEDS: HEPARIN SOD (PORCINE) LOAD IVP PRN (15:11)
[2017-04-30] MEDS: HEPARIN SOD (PORCINE) LOAD IVP PRN (15:27)
[2017-04-30] MEDS: LIDOCAINE/SOD BICARB 8.4% SYR ID PRN (15:27)
[2017-04-30] MEDS: HEPARIN (PORCINE) 1000 UNIT/ML (DIALYSIS) IVP PRN (15:27)
[2017-04-30] MEDS: SODIUM FERRIC GLUC 62.5 MG/5ML IVP PRN (16:01)
[2017-05-01] MEDS: LIDOCAINE/SOD BICARB 8.4% SYR ID PRN (05:54)
[2017-05-01] MEDS: HEPARIN SOD (PORCINE) LOAD IVP PRN (05:55)
[2017-05-01] MEDS: HEPARIN (PORCINE) 1000 UNIT/ML (DIALYSIS) IVP PRN (05:55)
[2017-05-02] MEDS: HEPARIN (PORCINE) 1000 UNIT/ML (DIALYSIS) IVP PRN (15:28)
[2017-05-02] MEDS: HEPARIN SOD (PORCINE) LOAD IVP PRN (15:28)
[2017-05-02] MEDS: LIDOCAINE/SOD BICARB 8.4% SYR ID PRN (15:28)
[2017-05-02] MEDS: DARBEPOETIN ESRD 25 MCG/ML IVP PRN (15:51)
[2017-05-05] MEDS: LIDOCAINE/SOD BICARB 8.4% SYR ID PRN (15:21)
[2017-05-05] MEDS: HEPARIN (PORCINE) 1000 UNIT/ML (DIALYSIS) IVP PRN (15:22)
[2017-05-05] MEDS: HEPARIN SOD (PORCINE) LOAD IVP PRN (15:22)
[2017-05-07] MEDS: LIDOCAINE/SOD BICARB 8.4% SYR ID PRN (15:15)
[2017-05-07] MEDS: HEPARIN (PORCINE) 1000 UNIT/ML (DIALYSIS) IVP PRN (15:15)
[2017-05-07] MEDS: HEPARIN SOD (PORCINE) LOAD IVP PRN (15:15)
[2017-05-07 15:38] LABS: PLATELET COUNT, AUTOMATED 187 K/uL (150-450)
[2017-05-07] MEDS: SODIUM FERRIC GLUC 62.5 MG/5ML IVP PRN (15:44)
[2017-05-09] MEDS: LIDOCAINE/SOD BICARB 8.4% SYR ID PRN (15:16)
[2017-05-09] MEDS: HEPARIN (PORCINE) 1000 UNIT/ML (DIALYSIS) IVP PRN (15:16)
[2017-05-09] MEDS: HEPARIN SOD (PORCINE) LOAD IVP PRN (15:16)
[2017-05-09] MEDS: DARBEPOETIN ESRD 40MCG/ML IVP PRN (15:39)
[2017-05-12] MEDS: HEPARIN (PORCINE) 1000 UNIT/ML (DIALYSIS) IVP PRN (15:14)
[2017-05-12] MEDS: HEPARIN SOD (PORCINE) LOAD IVP PRN (15:14)
[2017-05-12] MEDS: LIDOCAINE/SOD BICARB 8.4% SYR ID PRN (15:14)
[2017-05-13] MEDS: HEPARIN (PORCINE) 1000 UNIT/ML (DIALYSIS) IVP PRN (07:22)
[2017-05-13] MEDS: HEPARIN SOD (PORCINE) LOAD IVP PRN (07:23)
[2017-05-13] MEDS: LIDOCAINE/SOD BICARB 8.4% SYR ID PRN (07:23)
[2017-05-14] MEDS: HEPARIN (PORCINE) 1000 UNIT/ML (DIALYSIS) IVP PRN (15:20)
[2017-05-14] MEDS: HEPARIN SOD (PORCINE) LOAD IVP PRN (15:20)
[2017-05-14] MEDS: LIDOCAINE/SOD BICARB 8.4% SYR ID PRN (15:20)
[2017-05-14] MEDS: SODIUM FERRIC GLUC 62.5 MG/5ML IVP PRN (17:07)
[2017-05-16] MEDS: HEPARIN SOD (PORCINE) LOAD IVP PRN (15:23)
[2017-05-16] MEDS: LIDOCAINE/SOD BICARB 8.4% SYR ID PRN (15:23)
[2017-05-16] MEDS: HEPARIN (PORCINE) 1000 UNIT/ML (DIALYSIS) IVP PRN (15:24)
[2017-05-16] MEDS: DARBEPOETIN ESRD 40MCG/ML IVP PRN (16:23)
[2017-05-19] MEDS: LIDOCAINE/SOD BICARB 8.4% SYR ID PRN (15:33)
[2017-05-19] MEDS: HEPARIN SOD (PORCINE) LOAD IVP PRN (15:34)
[2017-05-19] MEDS: HEPARIN (PORCINE) 1000 UNIT/ML (DIALYSIS) IVP PRN (15:34)
[2017-05-23] MEDS: LIDOCAINE/SOD BICARB 8.4% SYR ID PRN (15:34)
[2017-05-23] MEDS: HEPARIN (PORCINE) 1000 UNIT/ML (DIALYSIS) IVP PRN (15:35)
[2017-05-23] MEDS: HEPARIN SOD (PORCINE) LOAD IVP PRN (15:35)
[2017-05-26] MEDS: HEPARIN SOD (PORCINE) LOAD IVP PRN (14:32)
[2017-05-26] MEDS: LIDOCAINE/SOD BICARB 8.4% SYR ID PRN (14:32)
[2017-05-26] MEDS: HEPARIN (PORCINE) 1000 UNIT/ML (DIALYSIS) IVP PRN (14:33)
[2017-05-26] MEDS: DARBEPOETIN ESRD 40MCG/ML IVP PRN (15:14)
[2017-05-26] MEDS: DARBEPOETIN ESRD 25 MCG/ML IVP PRN (15:14)
[2017-05-26] MEDS: PROMETHAZINE HCL 25 MG TAB PO PRN (15:30)
[2017-05-28] MEDS: HEPARIN SOD (PORCINE) LOAD IVP PRN (14:49)
[2017-05-28] MEDS: HEPARIN (PORCINE) 1000 UNIT/ML (DIALYSIS) IVP PRN (14:50)
[2017-05-28] MEDS: LIDOCAINE/SOD BICARB 8.4% SYR ID PRN (14:50)
[2017-05-28] MEDS: SODIUM FERRIC GLUC 62.5 MG/5ML IVP PRN (15:20)
[2017-05-30] MEDS: LIDOCAINE/SOD BICARB 8.4% SYR ID PRN ×2 (15:17→16:04)
[2017-05-30] MEDS: HEPARIN SOD (PORCINE) LOAD IVP PRN (15:18)
[2017-05-30] MEDS: HEPARIN (PORCINE) 1000 UNIT/ML (DIALYSIS) IVP PRN (15:18)
[2017-05-30] MEDS: DARBEPOETIN ESRD 25 MCG/ML IVP PRN (16:19)
[2017-05-30] MEDS: DARBEPOETIN ESRD 40MCG/ML IVP PRN (16:20)
[2017-06-02] MEDS: LIDOCAINE/SOD BICARB 8.4% SYR ID PRN (14:53)
[2017-06-02] MEDS: HEPARIN SOD (PORCINE) LOAD IVP PRN (14:54)
[2017-06-02] MEDS: HEPARIN (PORCINE) 1000 UNIT/ML (DIALYSIS) IVP PRN (14:54)
[2017-06-04] MEDS: HEPARIN SOD (PORCINE) LOAD IVP PRN (15:05)
[2017-06-04] MEDS: LIDOCAINE/SOD BICARB 8.4% SYR ID PRN (15:05)
[2017-06-04] MEDS: HEPARIN (PORCINE) 1000 UNIT/ML (DIALYSIS) IVP PRN (15:05)
[2017-06-04] MEDS: SODIUM FERRIC GLUC 62.5 MG/5ML IVP PRN (15:18)
[2017-06-06] MEDS: LIDOCAINE/SOD BICARB 8.4% SYR ID PRN (14:53)
[2017-06-06] MEDS: HEPARIN (PORCINE) 1000 UNIT/ML (DIALYSIS) IVP PRN (14:53)
[2017-06-06] MEDS: HEPARIN SOD (PORCINE) LOAD IVP PRN (14:54)
[2017-06-06] MEDS: DARBEPOETIN ESRD 25 MCG/ML IVP PRN (15:35)
[2017-06-06] MEDS: DARBEPOETIN ESRD 40MCG/ML IVP PRN (15:35)
[2017-06-09] MEDS: HEPARIN (PORCINE) 1000 UNIT/ML (DIALYSIS) IVP PRN (14:51)
[2017-06-09] MEDS: HEPARIN SOD (PORCINE) LOAD IVP PRN (14:51)
[2017-06-09] MEDS: LIDOCAINE/SOD BICARB 8.4% SYR ID PRN (14:51)
[2017-06-11] MEDS: LIDOCAINE/SOD BICARB 8.4% SYR ID PRN (14:34)
[2017-06-11] MEDS: HEPARIN SOD (PORCINE) LOAD IVP PRN (14:35)
[2017-06-11] MEDS: HEPARIN (PORCINE) 1000 UNIT/ML (DIALYSIS) IVP PRN (14:35)
[2017-06-14] MEDS: HEPARIN SOD (PORCINE) LOAD IVP PRN (13:42)
[2017-06-14] MEDS: LIDOCAINE/SOD BICARB 8.4% SYR ID PRN (13:42)
[2017-06-14] MEDS: HEPARIN (PORCINE) 1000 UNIT/ML (DIALYSIS) IVP PRN (13:42)
[2017-06-14 14:09] LABS: PLATELET COUNT, AUTOMATED 201 K/uL (150-450)
[2017-06-14] MEDS: SODIUM FERRIC GLUC 62.5 MG/5ML IVP PRN (14:30)
[2017-06-14] MEDS: DARBEPOETIN ESRD 40MCG/ML IVP PRN (14:31)
[2017-06-14] MEDS: DARBEPOETIN ESRD 25 MCG/ML IVP PRN (14:31)
[2017-06-16] MEDS: HEPARIN (PORCINE) 1000 UNIT/ML (DIALYSIS) IVP PRN (06:18)
[2017-06-16] MEDS: HEPARIN SOD (PORCINE) LOAD IVP PRN (06:18)
[2017-06-16] MEDS: LIDOCAINE/SOD BICARB 8.4% SYR ID PRN (06:19)
[2017-06-18] MEDS: HEPARIN (PORCINE) 1000 UNIT/ML (DIALYSIS) IVP PRN (14:36)
[2017-06-18] MEDS: HEPARIN SOD (PORCINE) LOAD IVP PRN (14:36)
[2017-06-18] MEDS: LIDOCAINE/SOD BICARB 8.4% SYR ID PRN (14:36)
[2017-06-18] MEDS: SODIUM FERRIC GLUC 62.5 MG/5ML IVP PRN (15:00)
[2017-06-20] MEDS: HEPARIN (PORCINE) 1000 UNIT/ML (DIALYSIS) IVP PRN (14:05)
[2017-06-20] MEDS: HEPARIN SOD (PORCINE) LOAD IVP PRN (14:05)
[2017-06-20] MEDS: LIDOCAINE/SOD BICARB 8.4% SYR ID PRN (14:05)
[2017-06-23] MEDS: HEPARIN (PORCINE) 1000 UNIT/ML (DIALYSIS) IVP PRN (13:56)
[2017-06-23] MEDS: HEPARIN SOD (PORCINE) LOAD IVP PRN (13:56)
[2017-06-23] MEDS: LIDOCAINE/SOD BICARB 8.4% SYR ID PRN (13:56)
[2017-06-25] MEDS: HEPARIN (PORCINE) 1000 UNIT/ML (DIALYSIS) IVP PRN ×2 (13:46→13:54)
[2017-06-25] MEDS: HEPARIN SOD (PORCINE) LOAD IVP PRN ×2 (13:46→13:54)
[2017-06-25] MEDS: LIDOCAINE/SOD BICARB 8.4% SYR ID PRN (13:53)
[2017-06-25] MEDS: SODIUM FERRIC GLUC 62.5 MG/5ML IVP PRN (14:15)
[2017-06-25 14:26] LABS: PLATELET COUNT, AUTOMATED 272 K/uL (150-450)
[2017-06-27] MEDS: HEPARIN (PORCINE) 1000 UNIT/ML (DIALYSIS) IVP PRN (13:38)
[2017-06-27] MEDS: HEPARIN SOD (PORCINE) LOAD IVP PRN (13:38)
[2017-06-27] MEDS: LIDOCAINE/SOD BICARB 8.4% SYR ID PRN (13:38)
[2017-06-27] MEDS: DARBEPOETIN ESRD 100 MCG/0.5ML SYR IVP PRN (14:17)
[2017-06-30] MEDS: LIDOCAINE/SOD BICARB 8.4% SYR ID PRN (13:45)
[2017-06-30] MEDS: HEPARIN SOD (PORCINE) LOAD IVP PRN (13:46)
[2017-06-30] MEDS: HEPARIN (PORCINE) 1000 UNIT/ML (DIALYSIS) IVP PRN (13:46)
[2017-07-02] MEDS: HEPARIN SOD (PORCINE) LOAD IVP PRN (14:04)
[2017-07-02] MEDS: HEPARIN (PORCINE) 1000 UNIT/ML (DIALYSIS) IVP PRN (14:04)
[2017-07-02] MEDS: LIDOCAINE/SOD BICARB 8.4% SYR ID PRN (14:04)
[2017-07-02] MEDS: SODIUM FERRIC GLUC 62.5 MG/5ML IVP PRN (14:32)
[2017-07-04] MEDS: LIDOCAINE/SOD BICARB 8.4% SYR ID PRN (06:05)
[2017-07-04] MEDS: HEPARIN SOD (PORCINE) LOAD IVP PRN (06:05)
[2017-07-04] MEDS: HEPARIN (PORCINE) 1000 UNIT/ML (DIALYSIS) IVP PRN (06:05)
[2017-07-04] MEDS: DARBEPOETIN ESRD 100 MCG/0.5ML SYR IVP PRN (07:17)
[2017-07-07] MEDS: HEPARIN (PORCINE) 1000 UNIT/ML (DIALYSIS) IVP PRN (14:00)
[2017-07-07] MEDS: HEPARIN SOD (PORCINE) LOAD IVP PRN (14:00)
[2017-07-07] MEDS: LIDOCAINE/SOD BICARB 8.4% SYR ID PRN (14:00)
[2017-07-09] MEDS: HEPARIN (PORCINE) 1000 UNIT/ML (DIALYSIS) IVP PRN (14:00)
[2017-07-09] MEDS: HEPARIN SOD (PORCINE) LOAD IVP PRN (14:01)
[2017-07-09] MEDS: LIDOCAINE/SOD BICARB 8.4% SYR ID PRN (14:02)
[2017-07-09] MEDS: SODIUM FERRIC GLUC 62.5 MG/5ML IVP PRN (14:33)
[2017-07-11] MEDS: HEPARIN SOD (PORCINE) LOAD IVP PRN (14:14)
[2017-07-11] MEDS: LIDOCAINE/SOD BICARB 8.4% SYR ID PRN (14:15)
[2017-07-11] MEDS: HEPARIN (PORCINE) 1000 UNIT/ML (DIALYSIS) IVP PRN (14:15)
[2017-07-11] MEDS: DARBEPOETIN ESRD 100 MCG/0.5ML SYR IVP PRN (15:11)
[2017-07-13] MEDS: LIDOCAINE/SOD BICARB 8.4% SYR ID PRN (13:21)
[2017-07-13] MEDS: HEPARIN (PORCINE) 1000 UNIT/ML (DIALYSIS) IVP PRN (13:21)
[2017-07-13] MEDS: HEPARIN SOD (PORCINE) LOAD IVP PRN (13:21)
[2017-07-16] MEDS: LIDOCAINE/SOD BICARB 8.4% SYR ID PRN (14:56)
[2017-07-16] MEDS: HEPARIN (PORCINE) 1000 UNIT/ML (DIALYSIS) IVP PRN (14:57)
[2017-07-16] MEDS: HEPARIN SOD (PORCINE) LOAD IVP PRN (14:57)
[2017-07-16] MEDS: SODIUM FERRIC GLUC 62.5 MG/5ML IVP PRN ×2 (15:35→15:37)
[~2017-07-21] VITALS: Ht 151.6 cm; Wt 55.6 kg
[~2017-07-21 09:25] MED LIST changes: +BIRTH CONT; +DARBEPOETIN ESRD 100 MCG/0.5ML SYR IVP PRN; +DARBEPOETIN ESRD 25 MCG/ML IVP ONE; +DARBEPOETIN ESRD 25 MCG/ML IVP PRN; +DARBEPOETIN ESRD 40MCG/ML IVP ONE; +DEXTROSE 50% 50 ML SYR IVP PRN; +DIALYSIS ACETAMINOPHEN 325 MG PO PRN; +INFLUENZA VIRUS VAC 0.5 ML SYR IM ONLY ONE; +LIDOCAINE/PRILOCAINE 30GM TUBE TP PRN; +MEDR10TA57 PO; +SODIUM FERRIC GLUC 62.5 MG/5ML IVP PRN; +diphenhydr DIALYSIS 50 MG/ML IVP PRN
== END | disposition home or self-care (01) ==
LOC: DIAL 07-19 08:30
PROVIDERS: ATTEND Internal Medicine Nephrology
DX: I12.0 Hypertensive chronic kidney disease with stage 5 chronic kidney disease or end stage renal disease (principal); N18.6 End stage renal disease; Z99.2 Dependence on renal dialysis; I50.9 Heart failure, unspecified; K21.9 Gastro-esophageal reflux disease without esophagitis; Z94.0 Kidney transplant status; J45.909 Unspecified asthma, uncomplicated; D63.1 Anemia in chronic kidney disease; E87.5 Hyperkalemia; F31.9 Bipolar disorder, unspecified; Z79.899 Other long term (current) drug therapy; E83.39 Other disorders of phosphorus metabolism; Z91.19 Patient's noncompliance with other medical treatment and regimen; Q63.9 Congenital malformation of kidney, unspecified; Q64.9 Congenital malformation of urinary system, unspecified; Q61.4 Renal dysplasia; Q60.2 Renal agenesis, unspecified; E22.1 Hyperprolactinemia; K90.0 Celiac disease; D51.9 Vitamin B12 deficiency anemia, unspecified; R25.1 Tremor, unspecified; Z88.1 Allergy status to other antibiotic agents; K86.81 Exocrine pancreatic insufficiency; Z23 Encounter for immunization
CPT/HCPCS: 82040; 82108; 82247; 82310; 82374; 82465; 82565; 82728; 82947; 83540; 83550; 83970; 84075; 84100; 84132; 84146; 84295; 84443; 84460; 84478; 84520; 84703; 85018; 85025; 86580; 86706; 87340; 90999; A4657; A9270; G0008; G0472; J0882; J2501; J2916; Q0169; Q2037; 86803; 90658; 90674

== ENCOUNTER 2017-07-21 19:16 | Emergency (ER) | payer MEDICARE, MEDICAID ==
[2016-01-11 12:26] VITALS: Ht 152.4 cm; Wt 64.4 kg
[~2017-07-21] VITALS: Ht 152.4 cm; Wt 64.4 kg
[~2017-07-21 19:16] MED LIST changes: -DARBEPOETIN ESRD 100 MCG/0.5ML SYR IVP PRN; -DARBEPOETIN ESRD 25 MCG/ML IVP ONE; -DARBEPOETIN ESRD 25 MCG/ML IVP PRN; -DARBEPOETIN ESRD 40MCG/ML IVP ONE; -DEXTROSE 50% 50 ML SYR IVP PRN; -DIALYSIS ACETAMINOPHEN 325 MG PO PRN; -INFLUENZA VIRUS VAC 0.5 ML SYR IM ONLY ONE; -LIDOCAINE/PRILOCAINE 30GM TUBE TP PRN; -SODIUM FERRIC GLUC 62.5 MG/5ML IVP PRN; -diphenhydr DIALYSIS 50 MG/ML IVP PRN
--- NOTE | 2017-07-21 19:20 | ER Report ---
History and Physical Time Seen By MD: 19:17 HPI/ROS CHIEF COMPLAINT: Sore throat, nausea HISTORY OF PRESENT ILLNESS: 21-year-old female with a history of end-stage renal disease on hemodialysis, status post transplant failure presents with sore throat for 2 days. She notes no fever or chills. She has a deep wet productive cough. She's had no shortness of breath. She states that the cough is due to her asthma. She notes the sputum. She produces is clear. She's had severe nausea but no vomiting. She missed dialysis on Friday. She had dialysis today to catch her up. REVIEW OF SYSTEMS: Respiratory: As above Cardiovascular: No chest pain, no palpitations. Gastrointestinal: No vomiting, no abdominal pain. Musculoskeletal: No back pain. Allergies: Coded Allergies: Cephalosporins (Verified Allergy, Unknown, RASH, 07/12/17) cefixime (Verified Allergy, Unknown, RASH, 07/12/17) ceftazidime (Verified Allergy, Unknown, HIVES, 07/12/17) cephalexin (Verified Allergy, Unknown, RASH, 07/12/17) gluten (Verified Allergy, Unknown, 07/12/17) nystatin (Verified Allergy, Unknown, HIVES, 07/12/17) Gadolinium-Containing Contrast Medi (Verified Adverse Reaction, Unknown, 07/12/17) ESRD Home Meds Active Scripts Ondansetron Hcl (ZOFRAN) 4 Mg Tablet, 4 MG PO Q8-12H Y for NAUSEA/VOMITING, #10 Prov:KIMBERLI ELIZONDO Jean DO 07/21/17 Promethazine Hcl (PROMETHAZINE HCL) 25 Mg Tablet, 25 MG PO Q4H Y for NAUSEA/ VOMITING, #20 TAB Prov:MIKHAILKIMBERLI Jean DO 07/21/17 Medroxyprogesterone Acetate (PROVERA) 10 Mg Tablet, 10 MG PO DAILY, #10 TAB Prov:JAJA VALADEZ LAYER OUT PLATE GLASS-BC 07/12/17 Reported Medications [ Cont] No Conflict Check 07/16/17 Hydrocodone Bit/Acetaminophen (HYDROCODON-ACETAMINOPHEN 5-325) 1 Each Tablet, 1- 2 EACH PO Q4-6H Y for PAIN, #30 TAB 07/04/17 Olanzapine (OLANZAPINE) 2.5 Mg Tablet, 2.5 MG PO mon,wed,fri 06/23/17 Olanzapine (OLANZAPINE) 10 Mg Tablet, 10 MG PO QHS 06/16/17 Ranitidine Hcl (ZANTAC) 150 Mg Tablet, 150 MG PO BID, TAB 06/07/17 Fluoxetine Hcl (PROZAC) 20 Mg Capsule, 20 MG PO QDAY, CAPSULE 06/04/17 Guanfacine Hcl (INTUNIV) 2 Mg Tab.er.24h, 2 MG PO DAILY 05/15/17 Calcium Acetate (CALCIUM ACETATE) 667 Mg Tablet, 667 MG PO PRN Y for with snacks 05/09/17 Calcium Acetate (CALCIUM ACETATE) 667 Mg Tablet, 2668 MG PO TIDCF 05/09/17 Albuterol Sulfate (VENTOLIN HFA) 18 Gm Inh, 1-2 PUFF INH 3-4XD, INH 05/09/17 Cinacalcet Hcl (SENSIPAR) 90 Mg Tablet, 90 MG PO three times a week Take 3 times a week on dialysis days only 04/10/16 Diphenhydramine Hcl (BENADRYL) 25 Mg Capsule, 50 MG PO BID Y for ANXIETY, CAPSULE 01/04/15 Folic Acid/Vitamin B Comp W-C (RENAL CAPS SOFTGEL) 1 Mg Capsule, 1 MG PO DAILY, CAPSULE 08/10/14 Atorvastatin Calcium (LIPITOR) 10 Mg Tablet, 10 MG PO QDAY, TAB TAKE ONE TABLET BY MOUTH EVERY DAY 07/29/14 Melatonin (MELATONIN) 3 Mg Tablet.er, 6 MG PO QHS Y for SLEEP TAKE 6 MG (2 TABS) AT BEDTIME NEEDED FOR SLEEP 11/08/13 Past Medical/Surgical History End-stage renal disease on hemodialysis, multiple transplant failures Reviewed Nurses Notes: Yes Old Medical Records Reviewed: Yes Hx Smoking: No Smoking Status: Never Smoker Exposure to Second Hand Smoke?: No Hx Substance Use Disorder: No Hx Alcohol Use: No Constitutional Vital Sign - Last 24 Hours 07/21/17 07/21/17 07/21/17 07/21/17 19:20 19:21 19:30 19:46 Temp 98.8 Pulse 112 93 Resp 18 B/P (MAP) 114/69 (84) 114/69 103/51 (68) Pulse Ox 96 92 O2 Delivery Room Air Physical Exam Vital signs stable, afebrile, pulse ox normal General Appearance: The patient is alert, has no immediate need for airway protection and no current signs of toxicity. Ill appearing, nontoxic, pale, skin warm and dry, deep mucousy wet cough noted HEENT: Pupils equal and round no injection. TMs normal, oropharynx with mild erythema, no exudate or petechiae, no tonsillar hypertrophy Respiratory: Chest is non tender, lungs are clear to auscultation. No wheezing or rails Cardiac: regular rate and rhythm Gastrointestinal: Abdomen is soft and non tender, no masses, bowel sounds normal. Musculoskeletal: Neck: Neck is supple and non tender. Extremities have full range of motion and are non tender. Skin: No rashes or lesions. DIFFERENTIAL DIAGNOSIS: After history and physical exam differential diagnosis was considered for strep pharyngitis, viral pharyngitis, viral upper respiratory infection, congestive heart failure, fluid overload, asthma exacerbation Medical Decision Making Data Points Laboratory Hematology Test 07/21/17 19:20 Group A Streptococcus Screen Negative (NEGATIVE) Chemistry Test 07/21/17 19:20 Group A Streptococcus Screen Negative (NEGATIVE) ED Course/Re-evaluation ED Course Patient admitted to an examination room. H&P was done. The differential diagnoses was considered. On clinical examination. Patient's throat is only mildly erythematous. Not consistent with strep pharyngitis. Rapid strep was performed which is unremarkable. I'm concerned about her wet cough. However, her vital signs are stable. Her pulse ox is normal. She does not appear fluid overloaded. Vised have a low threshold to follow-up with her primary care for any worsening, especially fever and chills, change in color of sputum. She is given prescription for Zofran and Phenergan for symptomatically relief. Decision to Disposition Date: Jul 21, 2017 Decision to Disposition Time: 19:54 Depart Departure Latest Vital Signs Vital Signs Date Time Temp Pulse Resp B/P (MAP) Pulse Ox O2 Delivery O2 Flow Rate FiO2 07/21/17 19:46 93 92 07/21/17 19:30 103/51 (68) 07/21/17 19:21 98.8 18 Room Air Impression: Primary Impression: Viral pharyngitis Additional Impressions: Nausea End-stage renal disease on hemodialysis Condition: Improved Disposition: HOME OR SELF-CARE New Scripts Ondansetron Hcl (ZOFRAN) 4 Mg Tablet 4 MG PO Q8-12H Y for NAUSEA/VOMITING, #10 Prov: KIMBERLI ELIZONDO DO 1/1/18 Promethazine Hcl (PROMETHAZINE HCL) 25 Mg Tablet 25 MG PO Q4H Y for NAUSEA/VOMITING, #20 TAB Prov: KIMBERLI ELIZONDO DO 07/21/17 Patient Instructions: Upper Respiratory Infection (ED) Additional Instructions: Follow-up with your primary care if unimproved in 3-5 days Problem Qualifiers KIMBERLI ELIZONDO DO Jul 21, 2017 19:20
[2017-07-21 19:30] VITALS: BP 103/51
[2017-07-21] MEDS ORDERED: PROMETHAZINE HCL 25 MG TAB PO ONE (19:35)
[2017-07-21] MEDS ORDERED: ONDANSETRON 4 MG ODT TABDP SL ONE (19:35)
[2017-07-21] MEDS ORDERED: ONDA4TAB97 PO (19:57)
[2017-07-21] MEDS ORDERED: PROM-110 PO (19:57)
== END 2017-07-21 20:05 | disposition home or self-care (01) ==
LOC: ER 19:45
DX: N18.6 End stage renal disease (principal); Z99.2 Dependence on renal dialysis; J02.9 Acute pharyngitis, unspecified; R11.0 Nausea
CPT/HCPCS: 87081; 87880; 99282; Q0162; Q0169; S0119

== ENCOUNTER 2017-07-22 13:47 | Outpatient (RCR) | payer MEDICARE, MEDICAID ==
[2016-01-11 12:26] VITALS: BMI 21.8
--- NOTE | 2017-07-23 09:41 | PT INITIAL EVALUATION ---
MEDICAL DIAGNOSIS: L knee arthroscopic lavage with extensive synovectomy TREATMENT DIAGNOSIS: same DATE OF ONSET: 07/15/18 SUBJECTIVE: Sole Cordova presents to physical therapy status post L knee arthroscopic lavage with extensive synovectomy on July 15, 2017. She has a history of end-stage renal disease on hemodialysis, status post transplant failure. She reports that she went to the ER yesterday for her current sickness and states that they believe it is a viral infection and was given medications to treat. She also reports that she missed dialysis on Friday and is going to catch up on Friday. Sole reports that her L knee became infected and needed to be cleaned out. She states that she continues to have increased pain in her L knee. She rates her current pain to be 6/10. She rates her best pain to be 3-4/10 and is typically while she is laying down or utilizing ice or heat. She rates her worst pain to be 7-8/10 as is typically while she is walking, being active, and bending the L knee. She states that she does not feel well at all today. She reports that she is nauseous, lightheaded, and cannot breath today. She denies any fever or chills. REHAB PROBLEM LIST: Increased Pain Decreased ROM Decreased Strength Decreased Endurance Decreased Balance Decreased Function Decreased ADL's Decreased Gait PREVIOUS MEDICAL HISTORY: OCCUPATION: OBJECTIVE: Incision demonstrated scap like presentation over the portal incisions with minimal redness and no infection like symptoms or signs present at this time Posture: She demonstrated B rounded shoulders, increased thoracic kyphosis, and decreased lumbar lordosis. ROM: PROM-AROM: L knee: extension to flexion: 0-140 degrees. PROM-AROM: R knee: extension to flexion: 0-150 degrees Strength: B hip abduction, extension, flexion: 4/5. R knee extension and flexion : 4+/5. L knee extension and flexion: 3+/5. B ankle PF and DF: 4+/5. Palpation: TTP: medial and lateral joint lines and suprapatellar regions Special Tests: Decreased (min to mod) accessory mobility of patella inferiorly and superiorly. Mobility: Independent Gait: She demonstrated the following gait mechanics: increased base of support, increased lateral trunk movement, decreased B foot clearance, foot slap along with decreased heel strike, decreased velocity, and decreased pelvic rotation. Other Objective Findings: SPO2% 73%, BP: 117/100. HR: 108 bpm ASSESSMENT: Sole will benefit from skilled physical therapy to address the following impairments to improve function and return to prior level of function. She was recommended to follow up with her primary care physician or seek the ER based on vitals today and she reported that they were headed to see her commercial loan closer immediately. Short Term Goals 4 weeks: Pt will improve AROM of L knee into extension and flexion from baseline to full AROM with normal end feels to improve function and QOL. 4 weeks: Pt will improve B LE strength from baseline to 4+/5 to improve function and QOL. 4 weeks: Pt will improve gait mechanics from baseline to full gait mechanics without any deviation to improve function and QOL. Patient's Goals get more movement without any pain PLAN: Patient to be seen for Manual Therapy/STM/MET Strengthening/condition Range of Motion Work Hardening/Cond Stretching Neuromuscular Re-ed Closed Chain Program Posture/Body mechanics Gait Trg/Balance Trg Home Exercise Program Therapeutic Activities 2x/Week for 4 Weeks If you have any questions, comments, or concerns about this report or plan, please contact me at . Thank you, Gerard Presley, PT, DPT MTDD
--- NOTE | 2017-07-31 10:45 | PT PLAN OF CARE ---
Physician: Yousuf Lam MD Patient is being seen: 2-3x/week Therapist: Gerard Presley, PT, DPT Medical Diagnosis: L knee arthroscopic lavage with extensive synovectomy Treatment Diagnosis: same Date of Onset: 07/15/18 Date of Initial Evaluation: 07/22/17 Date patient was last seen: 07/29/17 Number of treatments: 1 Number of cancellations/No shows: 2 INTERVENTIONS: Manual Therapy/STM/MET Strengthening/condition Range of Motion Work Hardening/Cond Stretching Neuromuscular Re-ed Closed Chain Program Posture/Body mechanics Gait Trg/Balance Trg Home Exercise Program Therapeutic Activities GOALS: 4 weeks: Pt will improve AROM of L knee into extension and flexion from baseline to full AROM with normal end feels to improve function and QOL. 4 weeks: Pt will improve B LE strength from baseline to 4+/5 to improve function and QOL. 4 weeks: Pt will improve gait mechanics from baseline to full gait mechanics without any deviation to improve function and QOL. PATIENT'S GOAL: get more movement without any pain Status of Patient's Goals: Did not meet Patient Compliance: Poor Prognosis: Excellent Reasons for continuing therapy: This is a discharge note for Sole Cordova. She had medical issues and is currently under hospital care in [place]. As a result, she will be discharged from . Posture: She demonstrated B rounded shoulders, increased thoracic kyphosis, and decreased lumbar lordosis. ROM: PROM-AROM: L knee: extension to flexion: 0-140 degrees. PROM-AROM: R knee: extension to flexion: 0-150 degrees Strength: B hip abduction, extension, flexion: 4/5. R knee extension and flexion : 4+/5. L knee extension and flexion: 3+/5. B ankle PF and DF: 4+/5. Palpation: TTP: medial and lateral joint lines and suprapatellar regions Special Tests: Decreased (min to mod) accessory mobility of patella inferiorly and superiorly. Mobility: Independent If you have any questions, please contact me at [phone]. Thank you, Gerard Presley, PT, DPT [facility]
== END 2017-07-22 18:00 | disposition home or self-care (01) ==
LOC: PT 13:47
PROVIDERS: ATTEND Orthopaedic Surgery Hand Surgery
DX: Z47.89 Encounter for other orthopedic aftercare (principal); M25.562 Pain in left knee; N18.6 End stage renal disease; T86.12 Kidney transplant failure; Z99.2 Dependence on renal dialysis
CPT/HCPCS: 97161

== ENCOUNTER 2017-07-23 12:20 | Emergency (ER) | payer MEDICARE, MEDICAID ==
[2016-01-11 12:26] VITALS: Wt 64.9 kg
--- NOTE | 2017-07-23 12:33 | ER Report ---
History and Physical Time Seen By MD: 12:31 Hx. of Stated Complaint: EMS WAS CALLED TO THE PATIENTS HOME BECAUSE SHE PASSED OUT. WAS SEEN BY HER PRIMARY CARE PROVIDER AND GIVEN BREATHING TREATMENTS. ACCORDING TO EMS, ROOM AIR SATURATIONS WERE 70% HPI/ROS CHIEF COMPLAINT: Syncope HISTORY OF PRESENT ILLNESS: Syncope 2 prior to arrival; cold symptoms recently with cough congestion and low-grade fevers. No chest pain or shortness of breath. No abdominal pain. Recently for vaginal bleeding and has been on Provera. REVIEW OF SYSTEMS: Constitutional: No fever, no chills. Eyes: No discharge. ENT: No sore throat. Cardiovascular: No chest pain, no palpitations. Respiratory: Cough Gastrointestinal: No abdominal pain, no vomiting. Genitourinary: No hematuria. Musculoskeletal: No back pain. Skin: No rashes. Neurological: No headache. Allergies: Coded Allergies: Cephalosporins (Verified Allergy, Unknown, RASH, 07/12/17) cefixime (Verified Allergy, Unknown, RASH, 07/12/17) ceftazidime (Verified Allergy, Unknown, HIVES, 07/12/17) cephalexin (Verified Allergy, Unknown, RASH, 07/12/17) gluten (Verified Allergy, Unknown, 07/12/17) nystatin (Verified Allergy, Unknown, HIVES, 07/12/17) Gadolinium-Containing Contrast Medi (Verified Adverse Reaction, Unknown, 07/12/17) ESRD Home Meds Active Scripts Ondansetron Hcl (ZOFRAN) 4 Mg Tablet, 4 MG PO Q8-12H Y for NAUSEA/VOMITING, #10 Prov:KIMBERLI ELIZONDO DO 07/21/17 Promethazine Hcl (PROMETHAZINE HCL) 25 Mg Tablet, 25 MG PO Q4H Y for NAUSEA/ VOMITING, #20 TAB Prov:KIMBERLI ELIZONDO DO 07/21/17 Medroxyprogesterone Acetate (PROVERA) 10 Mg Tablet, 10 MG PO DAILY, #10 TAB Prov:JAJA VALADEZ FINGER GRIP MACHINE OPERATOR- 07/12/17 Reported Medications [ Cont] No Conflict Check 07/16/17 Hydrocodone Bit/Acetaminophen (HYDROCODON-ACETAMINOPHEN 5-325) 1 Each Tablet, 1- 2 EACH PO Q4-6H Y for PAIN, #30 TAB 07/04/17 Olanzapine (OLANZAPINE) 2.5 Mg Tablet, 2.5 MG PO mon,wed,fri 4/17 Olanzapine (OLANZAPINE) 10 Mg Tablet, 10 MG PO QHS 06/16/17 Ranitidine Hcl (ZANTAC) 150 Mg Tablet, 150 MG PO BID, TAB 06/07/17 Fluoxetine Hcl (PROZAC) 20 Mg Capsule, 20 MG PO QDAY, CAPSULE 06/04/17 Guanfacine Hcl (INTUNIV) 2 Mg Tab.er.24h, 2 MG PO DAILY 05/15/17 Calcium Acetate (CALCIUM ACETATE) 667 Mg Tablet, 667 MG PO PRN Y for with snacks 05/09/17 Calcium Acetate (CALCIUM ACETATE) 667 Mg Tablet, 2668 MG PO TIDCF 05/09/17 Albuterol Sulfate (VENTOLIN HFA) 18 Gm Inh, 1-2 PUFF INH 3-4XD, INH 05/09/17 Cinacalcet Hcl (SENSIPAR) 90 Mg Tablet, 90 MG PO three times a week Take 3 times a week on dialysis days only 04/10/16 Diphenhydramine Hcl (BENADRYL) 25 Mg Capsule, 50 MG PO BID Y for ANXIETY, CAPSULE 01/04/15 Folic Acid/Vitamin B Comp W-C (RENAL CAPS SOFTGEL) 1 Mg Capsule, 1 MG PO DAILY, CAPSULE 08/10/14 Atorvastatin Calcium (LIPITOR) 10 Mg Tablet, 10 MG PO QDAY, TAB TAKE ONE TABLET BY MOUTH EVERY DAY 07/29/14 Melatonin (MELATONIN) 3 Mg Tablet.er, 6 MG PO QHS Y for SLEEP TAKE 6 MG (2 TABS) AT BEDTIME NEEDED FOR SLEEP 11/08/13 Hx Smoking: No Smoking Status: Never Smoker Exposure to Second Hand Smoke?: No Hx Substance Use Disorder: No Hx Alcohol Use: No Constitutional Vital Sign - Last 24 Hours 07/23/17 07/23/17 07/23/17 07/23/17 12:20 12:22 12:29 12:35 Temp 99.4 Pulse 132 129 123 Resp 24 13 B/P (MAP) 146/82 119/95 (103) Pulse Ox 92 68 96 O2 Delivery Room Air 07/23/17 07/23/17 07/23/17 07/23/17 12:45 12:50 13:05 13:20 Pulse 120 120 118 Resp 14 13 16 B/P (MAP) 126/63 (84) 07/23/17 07/23/17 07/23/17 07/23/17 13:35 13:50 13:55 14:00 Pulse 116 121 112 Resp 18 15 16 B/P (MAP) ???/??? (1665) 07/23/17 07/23/17 07/23/17 07/23/17 14:10 14:15 14:25 14:40 Pulse 113 101 110 Resp 20 9 10 B/P (MAP) 128/68 (88) Physical Exam General Appearance: The patient is alert, has no immediate need for airway protection and no signs of toxicity. Appears ill but nontoxic Eyes: Pupils equal and round no pallor or injection. ENT, Mouth: Mucous membranes are dry. Respiratory: There are no retractions, lungs are clear to auscultation. Cardiovascular: Regular rate and rhythm. No murmurs gallops or rubs Gastrointestinal: Abdomen is soft and non tender, no masses, bowel sounds normal. Neurological: Normal baseline neuro exam Skin: Warm and dry, no rashes. Musculoskeletal: Neck is supple non tender. Extremities are nontender, nonswollen and have full range of motion. No edema DIFFERENTIAL DIAGNOSIS: After history and physical exam differential diagnosis was considered for pneumonia upper respiratory infection influenza anemia Medical Decision Making Data Points Result Diagram: 07/23/17 1343 07/23/17 1343 Laboratory Hematology Test 07/23/17 13:43 07/23/17 14:11 Red Blood Count 2.28 M/uL (4.17-5.56) Mean Corpuscular Volume 98.8 fL (80.0-96.0) Mean Corpuscular Hemoglobin 32.6 pg (26.0-33.0) Mean Corpuscular Hemoglobin Concent 32.9 g/dL (32.0-36.0) Red Cell Distribution Width 18.4 % (11.5-14.5) Mean Platelet Volume 7.7 fL (7.2-11.1) Neutrophils (%) (Auto) 72.3 % (39.4-72.5) Lymphocytes (%) (Auto) 14.7 % (17.6-49.6) Monocytes (%) (Auto) 11.6 % (4.1-12.4) Eosinophils (%) (Auto) 0.3 % (0.4-6.7) Basophils (%) (Auto) 1.1 % (0.3-1.4) Nucleated RBC Relative Count (auto) 0.1 /100WBC Neutrophils # (Auto) 3.5 K/uL (2.0-7.4) Lymphocytes # (Auto) 0.7 K/uL (1.3-3.6) Monocytes # (Auto) 0.6 K/uL (0.3-1.0) Eosinophils # (Auto) 0.0 K/uL (0.0-0.5) Basophils # (Auto) 0.1 K/uL (0.0-0.1) Nucleated RBC Absolute Count (auto) 0.00 K/uL Sodium Level 135 mmol/L (137-145) Potassium Level 5.4 mmol/L (3.5-5.0) Chloride Level 91 mmol/L (98-107) Carbon Dioxide Level 23 mmol/L (22-31) Blood Urea Nitrogen 59 mg/dl (7-18) Creatinine 11.40 mg/dl (0.52-1.04) Glomerular Filtration Rate Calc 4.3 Random Glucose 97 mg/dl (75-110) Calcium Level 8.8 mg/dl (8.4-10.2) Total Bilirubin 0.5 mg/dl (0.2-1.3) Aspartate Amino Transf (AST/SGOT) 549 U/L (0-35) Alanine Aminotransferase (ALT/SGPT) 393 U/L (0-56) Alkaline Phosphatase 302 U/L (0-126) Troponin I 0.479 ng/ml B-Type Natriuretic Peptide 1950 pg/ml (0-100) Total Protein 6.8 gm/dl (6.3-8.2) Albumin 3.9 g/dl (3.5-5.0) Urine Color Straw Urine Clarity Clear Urine pH 8.0 pH (4.8-9.5) Urine Specific [place] 1.006 Urine Protein 30 mg/dL (NEGATIVE) Urine Glucose (UA) Negative mg/dL (NEGATIVE) Urine Ketones Negative mg/dL (NEGATIVE) Urine Blood Small (NEGATIVE) Urine Nitrite Negative (NEGATIVE) Urine Bilirubin Negative (NEGATIVE) Urine Urobilinogen Negative mg/dL (0.2-1.9) Urine Leukocyte Esterase Negative (NEGATIVE) Urine RBC 2 /HPF (0-2/HPF) Urine WBC <1 /HPF (0-5/HPF) Urine Squamous Epithelial Cells Few /LPF (NONE-FEW) Urine Bacteria Negative /HPF (NONE-FEW) Urine Mucus None /HPF (NONE-FEW) Chemistry Test 07/23/17 13:43 07/23/17 14:11 White Blood Count 4.8 k/uL (4.5-11.0) Red Blood Count 2.28 M/uL (4.17-5.56) Hemoglobin 7.4 g/dL (12.0-16.0) Hematocrit 22.5 % (34.0-47.0) Mean Corpuscular Volume 98.8 fL (80.0-96.0) Mean Corpuscular Hemoglobin 32.6 pg (26.0-33.0) Mean Corpuscular Hemoglobin Concent 32.9 g/dL (32.0-36.0) Red Cell Distribution Width 18.4 % (11.5-14.5) Platelet Count 227 K/uL (150-450) Mean Platelet Volume 7.7 fL (7.2-11.1) Neutrophils (%) (Auto) 72.3 % (39.4-72.5) Lymphocytes (%) (Auto) 14.7 % (17.6-49.6) Monocytes (%) (Auto) 11.6 % (4.1-12.4) Eosinophils (%) (Auto) 0.3 % (0.4-6.7) Basophils (%) (Auto) 1.1 % (0.3-1.4) Nucleated RBC Relative Count (auto) 0.1 /100WBC Neutrophils # (Auto) 3.5 K/uL (2.0-7.4) Lymphocytes # (Auto) 0.7 K/uL (1.3-3.6) Monocytes # (Auto) 0.6 K/uL (0.3-1.0) Eosinophils # (Auto) 0.0 K/uL (0.0-0.5) Basophils # (Auto) 0.1 K/uL (0.0-0.1) Nucleated RBC Absolute Count (auto) 0.00 K/uL Glomerular Filtration Rate Calc 4.3 Calcium Level 8.8 mg/dl (8.4-10.2) Total Bilirubin 0.5 mg/dl (0.2-1.3) Aspartate Amino Transf (AST/SGOT) 549 U/L (0-35) Alanine Aminotransferase (ALT/SGPT) 393 U/L (0-56) Alkaline Phosphatase 302 U/L (0-126) Troponin I 0.479 ng/ml B-Type Natriuretic Peptide 1950 pg/ml (0-100) Total Protein 6.8 gm/dl (6.3-8.2) Albumin 3.9 g/dl (3.5-5.0) Urine Color Straw Urine Clarity Clear Urine pH 8.0 pH (4.8-9.5) Urine Specific [place] 1.006 Urine Protein 30 mg/dL (NEGATIVE) Urine Glucose (UA) Negative mg/dL (NEGATIVE) Urine Ketones Negative mg/dL (NEGATIVE) Urine Blood Small (NEGATIVE) Urine Nitrite Negative (NEGATIVE) Urine Bilirubin Negative (NEGATIVE) Urine Urobilinogen Negative mg/dL (0.2-1.9) Urine Leukocyte Esterase Negative (NEGATIVE) Urine RBC 2 /HPF (0-2/HPF) Urine WBC <1 /HPF (0-5/HPF) Urine Squamous Epithelial Cells Few /LPF (NONE-FEW) Urine Bacteria Negative /HPF (NONE-FEW) Urine Mucus None /HPF (NONE-FEW) Urinalysis Test 07/23/17 14:11 Urine Color Straw Urine Clarity Clear Urine pH 8.0 pH (4.8-9.5) Urine Specific [place] 1.006 Urine Protein 30 mg/dL (NEGATIVE) Urine Glucose (UA) Negative mg/dL (NEGATIVE) Urine Ketones Negative mg/dL (NEGATIVE) Urine Blood Small (NEGATIVE) Urine Nitrite Negative (NEGATIVE) Urine Bilirubin Negative (NEGATIVE) Urine Urobilinogen Negative mg/dL (0.2-1.9) Urine Leukocyte Esterase Negative (NEGATIVE) Urine RBC 2 /HPF (0-2/HPF) Urine WBC <1 /HPF (0-5/HPF) Urine Squamous Epithelial Cells Few /LPF (NONE-FEW) Urine Bacteria Negative /HPF (NONE-FEW) Urine Mucus None /HPF (NONE-FEW) EKG/Imaging EKG Interpretation An EKG was performed at 1245 and reviewed by me accelerated junctional rhythm with a rate of 115 normal QRS prolonged QT C no ST or T-wave changes to suggest ischemia or infarction overall abnormal EKG ED Course/Re-evaluation ED Course 07/23/2017 2:40:05 pm Discussed with dialysis Center Dir. Young patient is due for dialysis last assess was Friday per father's report. Evidence of heart strain and fluid overload are parent. Troponin is slightly elevated which is atypical for her. Her prolonged QTC is different from prior EKG from 06/23/2017 injection rhythm is present rate is similar to prior EKG. Plan for dialysis and then return to ED for recheck of the troponin was discussed with Dr. Moreno by Hannah. I paged cardiology at [facility] to discuss her EKG and troponin level. ED times stamp cased the top discussed with residential program director at [facility] Dr. Chinedu Cleary. Decision to Disposition Date: Jul 23, 2017 Decision to Disposition Time: 14:59 Depart Departure Latest Vital Signs Vital Signs Date Time Temp Pulse Resp B/P (MAP) Pulse Ox O2 Delivery O2 Flow Rate FiO2 07/23/17 14:40 110 10 07/23/17 14:15 128/68 (88) 07/23/17 12:35 96 07/23/17 12:22 99.4 Room Air Impression: Primary Impression: Fluid overload Additional Impressions: Elevated troponin I level Anemia Condition: Improved Disposition: HOME OR SELF-CARE Additional Instructions: Go directly to dialysis, return to the ED for recheck of your ekg and troponin Problem Qualifiers MAGNUS MELARA MD Jul 23, 2017 12:33
--- NOTE | 2017-07-23 12:48 | EKG ---
FACILITY: [facility] PATIENT NAME: ANAND GROSS : [id number] MR: [id number] V: [id number] EXAM DATE: ORDERING PHYSICIAN: MAGNUS MELARA TECHNOLOGIST: Test Reason : Blood Pressure : / mmHG Vent. Rate : 115 BPM Atrial Rate : 107 BPM P-R Int : 000 ms QRS Dur : 084 ms QT Int : 470 ms P-R-T Axes : 000 040 030 degrees QTc Int : 650 ms Sinus tachycardia Probable left atrial enlargement Nonspecific interventricular conduction delay Nonspecific T wave findings diffusely Confirmed by ABDIRASHID YUSUF ([id number] on 07/24/2017 6:40:44 AM Referred By: Confirmed By:ABDIRASHID YUSUF
--- NOTE | 2017-07-23 13:06 | RADIOLOGY IMAGING REPORT ---
FACILITY: [facility] PATIENT NAME: Sole Cordova : 1995 MR: [id number] V: [id number] EXAM DATE: ORDERING PHYSICIAN: MAGNUS MELARA TECHNOLOGIST: Location: [facility] [place] Patient: Sole Cordova : 1995 Visit/Account:[id number] Date of Sevice: 07/23/2017 CHEST SINGLE AP Indication: Wheezing and dyspnea.. Comparison: 07/11/2016. Findings: Lungs lungs are decreased bilaterally causing accentuation to the interstitium and cardiac silhouette . Cardiomediastinal silhouette and pulmonary vessels within normal limits. Lungs show no focal consolidation, pleural effusion or pneumothorax. No discrete nodule. Upper abdomen is unremarkable. No acute bony abnormality. IMPRESSION: 1. Low lung volumes without indication of acute cardiopulmonary disease. Report Dictated By: Yousuf Rodriguez at 07/23/2017 12:59 PM Report E-Signed By: Yousuf Rodriguez at 07/23/2017 1:01 PM WSN:[id number]
[2017-07-23 13:55] LABS: PLATELET COUNT, AUTOMATED 227 K/uL (150-450)
--- NOTE | 2017-07-23 14:51 | EKG ---
FACILITY: [facility] PATIENT NAME: ANAND GROSS : [id number] MR: [id number] V: [id number] EXAM DATE: ORDERING PHYSICIAN: MAGNUS MELARA TECHNOLOGIST: Test Reason : Blood Pressure : / mmHG Vent. Rate : 103 BPM Atrial Rate : 103 BPM P-R Int : 160 ms QRS Dur : 082 ms QT Int : 382 ms P-R-T Axes : 035 037 032 degrees QTc Int : 500 ms Sinus tachycardia Probable left atrial enlargement Nonspecific interventricular conduction delay Prolonged QT Nonspecific T wave findings Confirmed by ABDIRASHID YUSUF ([id number] on 07/24/2017 6:44:39 AM Referred By: Confirmed By:ABDIRASHID YUSUF
[2017-07-23 15:07] VITALS: BP 115/73
== END 2017-07-23 15:16 | disposition home or self-care (01) ==
LOC: ER 12:30
DX: E87.70 Fluid overload, unspecified (principal); R09.02 Hypoxemia; R00.0 Tachycardia, unspecified; R06.2 Wheezing
CPT/HCPCS: 36415; 36416; 71045; 81001; 82040; 82247; 82310; 82374; 82435; 82565; 82947; 82948; 83880; 84075; 84132; 84155; 84295; 84450; 84460; 84484; 84520; 85025; 87502; 93005; 99284

== ENCOUNTER 2017-07-23 17:10 | Emergency (ER) | payer MEDICARE, MEDICAID ==
[2016-01-11 12:26] VITALS: Wt 63.7 kg
[2017-07-23] MEDS ORDERED: NS(*) 0.9% 500 ML BAG 500 ML IV ONE (17:35)
--- NOTE | 2017-07-23 17:41 | ER Report ---
History and Physical Time Seen By MD: 17:23 (MAGNUS MELARA MD) HPI/ROS CHIEF COMPLAINT: Altered mental status HISTORY OF PRESENT ILLNESS: Patient returns from dialysis, no blood was given during dialysis. Reason: Altered mental status. Staff analysis tenderness are well and normally she is talkative she has been more somnolent. Per dad this may have started this morning but he thought it may be due to a need for dialysis. She has been less talkative and not her normal self. She is under care of an fish liver sorter and is expecting follow-up for an MRI in a few months for endocrine abnormalities including high prolactin level and bilateral excretion. This is been going on for some time. REVIEW OF SYSTEMS: Unable to obtain due to altered mental status (MAGNUS MELARA MD) Allergies: Coded Allergies: Cephalosporins (Verified Allergy, Unknown, RASH, 07/12/17) cefixime (Verified Allergy, Unknown, RASH, 07/12/17) ceftazidime (Verified Allergy, Unknown, HIVES, 07/12/17) cephalexin (Verified Allergy, Unknown, RASH, 07/12/17) gluten (Verified Allergy, Unknown, 07/12/17) nystatin (Verified Allergy, Unknown, HIVES, 07/12/17) Gadolinium-Containing Contrast Medi (Verified Adverse Reaction, Unknown, 07/12/17) ESRD Home Meds Active Scripts Ondansetron Hcl (ZOFRAN) 4 Mg Tablet, 4 MG PO Q8-12H Y for NAUSEA/VOMITING, #10 Prov:KIMBERLI ELIZONDO DO 07/21/17 Promethazine Hcl (PROMETHAZINE HCL) 25 Mg Tablet, 25 MG PO Q4H Y for NAUSEA/ VOMITING, #20 TAB Prov:KIMBERLI ELIZONDO DO 07/21/17 Medroxyprogesterone Acetate (PROVERA) 10 Mg Tablet, 10 MG PO DAILY, #10 TAB Prov:JAJA VALADEZ HATCH SUPERVISOR-BC 07/12/17 Reported Medications [ Cont] No Conflict Check 07/16/17 Hydrocodone Bit/Acetaminophen (HYDROCODON-ACETAMINOPHEN 5-325) 1 Each Tablet, 1- 2 EACH PO Q4-6H Y for PAIN, #30 TAB 07/04/17 Olanzapine (OLANZAPINE) 2.5 Mg Tablet, 2.5 MG PO mon,wed,fri 06/23/17 Olanzapine (OLANZAPINE) 10 Mg Tablet, 10 MG PO QHS 06/16/17 Ranitidine Hcl (ZANTAC) 150 Mg Tablet, 150 MG PO BID, TAB 06/07/17 Fluoxetine Hcl (PROZAC) 20 Mg Capsule, 20 MG PO QDAY, CAPSULE 06/04/17 Guanfacine Hcl (INTUNIV) 2 Mg Tab.er.24h, 2 MG PO DAILY 05/15/17 Calcium Acetate (CALCIUM ACETATE) 667 Mg Tablet, 667 MG PO PRN Y for with snacks 05/09/17 Calcium Acetate (CALCIUM ACETATE) 667 Mg Tablet, 2668 MG PO TIDCF 05/09/17 Albuterol Sulfate (VENTOLIN HFA) 18 Gm Inh, 1-2 PUFF INH 3-4XD, INH 05/09/17 Cinacalcet Hcl (SENSIPAR) 90 Mg Tablet, 90 MG PO three times a week Take 3 times a week on dialysis days only 04/10/16 Diphenhydramine Hcl (BENADRYL) 25 Mg Capsule, 50 MG PO BID Y for ANXIETY, CAPSULE 01/04/15 Folic Acid/Vitamin B Comp W-C (RENAL CAPS SOFTGEL) 1 Mg Capsule, 1 MG PO DAILY, CAPSULE 08/10/14 Atorvastatin Calcium (LIPITOR) 10 Mg Tablet, 10 MG PO QDAY, TAB TAKE ONE TABLET BY MOUTH EVERY DAY 07/29/14 Melatonin (MELATONIN) 3 Mg Tablet.er, 6 MG PO QHS Y for SLEEP TAKE 6 MG (2 TABS) AT BEDTIME NEEDED FOR SLEEP 11/08/13 Hx Smoking: No Smoking Status: Never Smoker Exposure to Second Hand Smoke?: No Hx Substance Use Disorder: No Hx Alcohol Use: No (MAGNUS MELARA MD) Constitutional Vital Sign - Last 24 Hours 07/23/17 07/23/17 07/23/17 07/23/17 17:10 17:14 17:15 17:20 Pulse ??? Resp 12 B/P (MAP) 148/86 (106) Pulse Ox 94 O2 Flow Rate 4.0 07/23/17 07/23/17 07/23/17 07/23/17 17:30 17:36 17:50 17:52 Pulse 107 117 122 Resp 11 28 B/P (MAP) 148/86 124/72 (89) Pulse Ox 95 94 93 O2 Delivery Nasal Cannula 107/23/17 07/23/17 07/23/17 17:58 18:00 18:01 18:05 Temp 99.2 Pulse 119 Resp 13 B/P (MAP) 123/75 (91) 114/64 (81) Pulse Ox 94 07/23/17 07/23/17 07/23/17 07/23/17 18:10 18:15 18:20 18:25 Pulse 99 101 Resp 12 33 B/P (MAP) 104/55 (71) 101/55 (70) 99/49 (66) 92/51 (65) Pulse Ox 95 92 07/23/17 07/23/17 07/23/17 07/23/17 18:30 18:35 18:39 18:40 Pulse 92 88 Resp 18 12 B/P (MAP) 100/62 (75) 100/51 (67) 98/48 (65) Pulse Ox 98 97 07/23/17 07/23/17 07/23/17 07/23/17 18:45 18:50 18:52 18:55 Pulse 84 Resp 18 B/P (MAP) 92/51 (65) 87/51 (63) 92/51 (65) 89/48 (62) Pulse Ox 96 07/23/17 07/23/17 07/23/17 07/23/17 19:00 19:05 19:10 19:15 Pulse 83 81 Resp 13 16 B/P (MAP) 92/51 (65) 93/52 (66) 98/51 (67) 93/54 (67) Pulse Ox 95 96 07/23/17 07/23/17 07/23/17 07/23/17 19:20 19:25 19:30 19:35 B/P (MAP) 90/53 (65) 86/50 (62) 89/50 (63) 87/49 (62) 07/23/17 07/23/17 07/23/17 07/23/17 19:40 19:45 19:50 19:55 Pulse ??? Resp 20 B/P (MAP) 86/45 (59) 112/73 (86) 102/80 (87) 96/57 (70) Pulse Ox 94 07/23/17 07/23/17 07/23/17 07/23/17 20:00 20:05 20:10 20:15 Pulse 87 Resp 11 B/P (MAP) 90/51 (64) 97/57 (70) 96/53 (67) 124/92 (103) Pulse Ox 100 07/23/17 07/23/17 07/23/17 07/23/17 20:18 20:20 20:36 20:40 Pulse 80 88 Resp 14 16 B/P (MAP) 114/90 (98) 109/55 (73) 111/62 (78) Pulse Ox 97 99 O2 Flow Rate 15.0 07/23/17 07/23/17 07/23/17 07/23/17 20:46 20:51 20:57 21:10 Temp 99.3 Pulse 78 79 76 Resp 13 14 17 B/P (MAP) 108/67 (81) 105/61 (76) 101/62 (75) Pulse Ox 99 99 99 07/23/17 07/23/17 07/23/17 07/23/17 21:11 21:15 21:20 21:25 Pulse 88 Resp 31 B/P (MAP) 130/86 (101) 119/79 (92) 115/83 (94) 139/86 (103) Pulse Ox 96 07/23/17 07/23/17 07/23/17 07/23/17 21:30 21:35 21:40 21:45 Pulse 83 82 90 87 Resp 13 13 15 17 B/P (MAP) 112/75 (87) 111/74 (86) 118/81 (93) 119/77 (91) Pulse Ox 97 97 95 94 07/23/17 07/23/17 07/23/17 07/23/17 21:50 21:51 21:51 21:51 Pulse 84 85 Resp 13 14 B/P (MAP) 106/65 (79) Pulse Ox 94 94 O2 Delivery Mechanical Ventilator FiO2 60.0 60.0 07/23/17 07/23/17 07/23/17 07/23/17 21:55 22:00 22:05 22:10 Pulse 84 86 84 102 Resp 13 13 14 18 B/P (MAP) 104/68 (80) 112/79 (90) 107/65 (79) 129/89 (102) Pulse Ox 95 92 96 100 07/23/17 07/23/17 07/23/17 07/23/17 22:15 22:20 22:25 22:30 Pulse 112 101 98 107 Resp 13 14 13 12 B/P (MAP) 134/80 (98) 110/66 (81) 102/61 (75) 140/85 (103) Pulse Ox 97 99 100 97 07/23/17 22:35 Pulse 96 Resp 13 B/P (MAP) 115/73 (87) Pulse Ox 99 (SHEN PUGA MD) Physical Exam General Appearance: Eyes are open the patient is somnolent and not responding verbally. No seizure activity seen. Airway remains patent. Air movement appears normal Eyes: Pupils equal and round no pallor or injection. ENT, Mouth: Mucous membranes are moist. Respiratory: There are no retractions, lungs are clear to auscultation. Cardiovascular: Regular rate and rhythm. No murmurs gallops or rubs Gastrointestinal: Abdomen is soft and non tender, no masses, bowel sounds normal. Neurological: Eyes open not responding to commands or verbal stimuli spontaneous movement 4 extremities Skin: Warm and dry, no rashes. Musculoskeletal: Neck is supple non tender. Extremities are nontender, nonswollen and have full range of motion. [ ] DIFFERENTIAL DIAGNOSIS: After history and physical exam differential diagnosis was considered for stroke, prolactinoma, intracranial hemorrhage, trauma, delirium due to underlying medical cause, bipolar episode with hypo-manic or depressive state. This is an incomplete list. (MAGNUS MELARA MD) Medical Decision Making Data Points Result Diagram: 07/23/17195507/23/171955 Laboratory Hematology Test 07/23/17 17:20 07/23/17 19:54 07/23/17 19:56 07/23/17 20:00 Troponin I 0.523 ng/ml Salicylates Level < 10 mg/L Salicylate Last Dose Date unknown Urine Color Straw Urine Clarity Clear Urine pH 8.0 pH (4.8-9.5) Urine Specific [place] 1.006 Urine Protein 30 mg/dL (NEGATIVE) Urine Glucose (UA) Negative mg/dL (NEGATIVE) Urine Ketones Negative mg/dL (NEGATIVE) Urine Blood Small (NEGATIVE) Urine Nitrite Negative (NEGATIVE) Urine Bilirubin Negative (NEGATIVE) Urine Urobilinogen Negative mg/dL (0.2-1.9) Urine Leukocyte Esterase Negative (NEGATIVE) Urine RBC 1 /HPF (0-2/HPF) Urine WBC <1 /HPF (0-5/HPF) Urine Squamous Epithelial Cells Many /LPF (NONE-FEW) Urine Transitional Epithelial Cells Few /LPF (NONE-FEW) Urine Bacteria Negative /HPF (NONE-FEW) Urine Mucus None /HPF (NONE-FEW) Urine Opiates Screen Positive Urine Barbiturates Screen Negative Ur Tricyclic Antidepressants Screen Negative Urine Phencyclidine Screen Negative Urine Amphetamines Screen Negative Urine Benzodiazepines Screen Negative Urine Cocaine Screen Negative Urine Cannabinoids Screen Negative Red Blood Count 2.78 M/uL (4.17-5.56) Mean Corpuscular Volume 95.8 fL (80.0-96.0) Mean Corpuscular Hemoglobin 32.0 pg (26.0-33.0) Mean Corpuscular Hemoglobin Concent 33.4 g/dL (32.0-36.0) Red Cell Distribution Width 19.3 % (11.5-14.5) Mean Platelet Volume 7.9 fL (7.2-11.1) Neutrophils (%) (Auto) 75.2 % (39.4-72.5) Lymphocytes (%) (Auto) 12.4 % (17.6-49.6) Monocytes (%) (Auto) 11.3 % (4.1-12.4) Eosinophils (%) (Auto) 0.2 % (0.4-6.7) Basophils (%) (Auto) 0.9 % (0.3-1.4) Nucleated RBC Relative Count (auto) 0.3 /100WBC Neutrophils # (Auto) 3.8 K/uL (2.0-7.4) Lymphocytes # (Auto) 0.6 K/uL (1.3-3.6) Monocytes # (Auto) 0.6 K/uL (0.3-1.0) Eosinophils # (Auto) 0.0 K/uL (0.0-0.5) Basophils # (Auto) 0.0 K/uL (0.0-0.1) Nucleated RBC Absolute Count (auto) 0.02 K/uL Peripheral Blood Smear No Y/N Venous Blood pH 7.39 (7.31-7.41) Venous Blood Partial Pressure CO2 49 mmHg Venous Blood Partial Pressure O2 53 mmHg Venous Blood HCO3 30 mmol/L Venous Blood Oxygen Saturation 86 % Venous Blood Base Excess 5 mmol/L Carboxyhemoglobin 0.4 % (< 5.0) Sodium Level 137 mmol/L (137-145) Potassium Level 4.8 mmol/L (3.5-5.0) Chloride Level 93 mmol/L (98-107) Carbon Dioxide Level 27 mmol/L (22-31) Blood Urea Nitrogen 40 mg/dl (7-18) Creatinine 8.10 mg/dl (0.52-1.04) Glomerular Filtration Rate Calc 6.4 Random Glucose 97 mg/dl (75-110) Lactate 1.5 mmol/L (0.7-2.1) Calcium Level 9.4 mg/dl (8.4-10.2) Total Bilirubin 0.6 mg/dl (0.2-1.3) Aspartate Amino Transf (AST/SGOT) 494 U/L (0-35) Alanine Aminotransferase (ALT/SGPT) 382 U/L (0-56) Alkaline Phosphatase 288 U/L (0-126) Ammonia 14 UMOL/L (9-33) Total Protein 6.3 gm/dl (6.3-8.2) Albumin 3.7 g/dl (3.5-5.0) Human Chorionic Gonadotropin, Qual Negative (NEGATIVE) Serum Alcohol < 10 mg/dl Test 07/23/17 21:10 07/23/17 22:59 Blood Gas Puncture Site Right radial Blood Gas Patient Temperature 99.3 DEGREES Arterial Blood pH 7.39 (7.35-7.45) Arterial Blood Partial Pressure CO2 43 mmHg (32-37) Arterial Blood Partial Pressure O2 55 mmHg (60-80) Arterial Blood HCO3 26 mmol/L (20-26) Arterial Blood Oxygen Saturation 88 % (92-100) Arterial Blood Base Excess 1.0 mmol/L Дмитрий Test Nt avail Oxygen Liters/Minute 40% fio2 Chemistry Test 07/23/17 17:20 07/23/17 19:54 07/23/17 19:56 07/23/17 20:00 Troponin I 0.523 ng/ml Salicylates Level < 10 mg/L Salicylate Last Dose Date unknown Urine Color Straw Urine Clarity Clear Urine pH 8.0 pH (4.8-9.5) Urine Specific [place] 1.006 Urine Protein 30 mg/dL (NEGATIVE) Urine Glucose (UA) Negative mg/dL (NEGATIVE) Urine Ketones Negative mg/dL (NEGATIVE) Urine Blood Small (NEGATIVE) Urine Nitrite Negative (NEGATIVE) Urine Bilirubin Negative (NEGATIVE) Urine Urobilinogen Negative mg/dL (0.2-1.9) Urine Leukocyte Esterase Negative (NEGATIVE) Urine RBC 1 /HPF (0-2/HPF) Urine WBC <1 /HPF (0-5/HPF) Urine Squamous Epithelial Cells Many /LPF (NONE-FEW) Urine Transitional Epithelial Cells Few /LPF (NONE-FEW) Urine Bacteria Negative /HPF (NONE-FEW) Urine Mucus None /HPF (NONE-FEW) Urine Opiates Screen Positive Urine Barbiturates Screen Negative Ur Tricyclic Antidepressants Screen Negative Urine Phencyclidine Screen Negative Urine Amphetamines Screen Negative Urine Benzodiazepines Screen Negative Urine Cocaine Screen Negative Urine Cannabinoids Screen Negative White Blood Count 5.0 k/uL (4.5-11.0) Red Blood Count 2.78 M/uL (4.17-5.56) Hemoglobin 8.9 g/dL (12.0-16.0) Hematocrit 26.7 % (34.0-47.0) Mean Corpuscular Volume 95.8 fL (80.0-96.0) Mean Corpuscular Hemoglobin 32.0 pg (26.0-33.0) Mean Corpuscular Hemoglobin Concent 33.4 g/dL (32.0-36.0) Red Cell Distribution Width 19.3 % (11.5-14.5) Platelet Count 202 K/uL (150-450) Mean Platelet Volume 7.9 fL (7.2-11.1) Neutrophils (%) (Auto) 75.2 % (39.4-72.5) Lymphocytes (%) (Auto) 12.4 % (17.6-49.6) Monocytes (%) (Auto) 11.3 % (4.1-12.4) Eosinophils (%) (Auto) 0.2 % (0.4-6.7) Basophils (%) (Auto) 0.9 % (0.3-1.4) Nucleated RBC Relative Count (auto) 0.3 /100WBC Neutrophils # (Auto) 3.8 K/uL (2.0-7.4) Lymphocytes # (Auto) 0.6 K/uL (1.3-3.6) Monocytes # (Auto) 0.6 K/uL (0.3-1.0) Eosinophils # (Auto) 0.0 K/uL (0.0-0.5) Basophils # (Auto) 0.0 K/uL (0.0-0.1) Nucleated RBC Absolute Count (auto) 0.02 K/uL Peripheral Blood Smear No Y/N Venous Blood pH 7.39 (7.31-7.41) Venous Blood Partial Pressure CO2 49 mmHg Venous Blood Partial Pressure O2 53 mmHg Venous Blood HCO3 30 mmol/L Venous Blood Oxygen Saturation 86 % Venous Blood Base Excess 5 mmol/L Carboxyhemoglobin 0.4 % (< 5.0) Glomerular Filtration Rate Calc 6.4 Lactate 1.5 mmol/L (0.7-2.1) Calcium Level 9.4 mg/dl (8.4-10.2) Total Bilirubin 0.6 mg/dl (0.2-1.3) Aspartate Amino Transf (AST/SGOT) 494 U/L (0-35) Alanine Aminotransferase (ALT/SGPT) 382 U/L (0-56) Alkaline Phosphatase 288 U/L (0-126) Ammonia 14 UMOL/L (9-33) Total Protein 6.3 gm/dl (6.3-8.2) Albumin 3.7 g/dl (3.5-5.0) Human Chorionic Gonadotropin, Qual Negative (NEGATIVE) Serum Alcohol < 10 mg/dl Test 07/23/17 21:10 07/23/17 22:59 Blood Gas Puncture Site Right radial Blood Gas Patient Temperature 99.3 DEGREES Arterial Blood pH 7.39 (7.35-7.45) Arterial Blood Partial Pressure CO2 43 mmHg (32-37) Arterial Blood Partial Pressure O2 55 mmHg (60-80) Arterial Blood HCO3 26 mmol/L (20-26) Arterial Blood Oxygen Saturation 88 % (92-100) Arterial Blood Base Excess 1.0 mmol/L Дмитрий Test Nt avail Oxygen Liters/Minute 40% fio2 Coagulation Test 07/23/17 20:00 Toxicology Test 07/23/17 17:20 07/23/17 19:54 07/23/17 19:56 07/23/17 22:59 Salicylates Level < 10 mg/L Salicylate Last Dose Date unknown Urine Opiates Screen Positive Urine Barbiturates Screen Negative Ur Tricyclic Antidepressants Screen Negative Urine Phencyclidine Screen Negative Urine Amphetamines Screen Negative Urine Benzodiazepines Screen Negative Urine Cocaine Screen Negative Urine Cannabinoids Screen Negative Serum Alcohol < 10 mg/dl Urinalysis Test 07/23/17 19:54 Urine Color Straw Urine Clarity Clear Urine pH 8.0 pH (4.8-9.5) Urine Specific Col[place] 1.006 Urine Protein 30 mg/dL (NEGATIVE) Urine Glucose (UA) Negative mg/dL (NEGATIVE) Urine Ketones Negative mg/dL (NEGATIVE) Urine Blood Small (NEGATIVE) Urine Nitrite Negative (NEGATIVE) Urine Bilirubin Negative (NEGATIVE) Urine Urobilinogen Negative mg/dL (0.2-1.9) Urine Leukocyte Esterase Negative (NEGATIVE) Urine RBC 1 /HPF (0-2/HPF) Urine WBC <1 /HPF (0-5/HPF) Urine Squamous Epithelial Cells Many /LPF (NONE-FEW) Urine Transitional Epithelial Cells Few /LPF (NONE-FEW) Urine Bacteria Negative /HPF (NONE-FEW) Urine Mucus None /HPF (NONE-FEW) (SHEN PUGA MD) EKG/Imaging EKG Interpretation An EKG was performed at 1726 and read by wv sinus tachycardia with a rate of 106 normal PA QRS and QTc intervals no ST or T-wave changes to suggest ischemia or infarction. No S1 every 3 T3 pattern seen. Otherwise normal EKG (MAGNUS MELARA MD) ED Course/Re-evaluation ED Course 2 mg of IV Ativan ordered for suspected seizures patient is moving right upper extremity in a decorticate posturing on the right side only with some rhythmic moving is gaze deviated to the right and unresponsive. Care signed to Dr. Puga at 6 PM change of shift. (MAGNUS MELARA MD) ED Course See turnover note Procedure Procedure: Rapid sequence intubation. Indication for the procedure was airway protection. The patient was preoxygenated with 100% oxygen by face mask. The patient was given the following IV medications: Etomidate, rocuronium as a defasciculating agent. The patient was orally endotracheally intubated under direct visualization with a 7.5 ETT. Tracheal intubation was confirmed with misting on the tube; breath sounds were auscultated equally bilaterally; appropriate color change with [place] CO2 detector. Chest X-ray shows ETT in good position. The procedure was performed by myself. Procedure: Lumbar puncture. Indication: AMS and new onset seizure After verbal informed consent from patient's parent explaining the risks including infection, bleeding, and neurologic damage, a lumbar puncture was performed after the patient was prepped and draped in the usual fashion. The back was anesthetized with 1% lidocaine. Approximately 4 cc of clear fluid was obtained. Opening pressure was not obtained. There were no complications. The procedure was performed by myself. Decision to Disposition Date: Jul 23, 2017 Decision to Disposition Time: 23:09 Critical Care Time I spent a total of 60 minutes of critical care time in obtaining history, performing a physical exam, bedside monitoring of interventions, collecting and interpreting tests and discussion with consultants but not including time spent performing procedures. Turned Over I took this patient over as a transfer from Dr. Melara. I reviewed the labs and also evaluated the patient from head to toe. I spoke to the patient's dad at length about the events that led her to the emergency department. The patient continued to the somnolent, and responded less and less to questioning. She had what appeared to be a no other seizure with bilateral eye twitching he's grinding and tonic clonic movement of her bilateral upper extremities. I decided that this appeared to be consistent with status epilepticus given the events of the day. She was given Keppra and fosphenytoin. I decided that she was no longer protecting her airway and performed an intubation after speaking with her dad. Given the CT scan of the head was altered by movement, I elected to just perform an MRI of the brain given there was a questionable history of a prolactinoma. The MRI is consistent with diffuse encephalopathy, and possible acute as well as chronic infarcts. After the MRI and intubation I performed an LP given the finding of encephalitis. She was also started on acyclovir. I went over her history multiple times with her dad who still at the bedside. He states that she is not someone who is suicidal. He states that all of her medication counts are accurate and the number of pills they should be. Her UDS is positive for opitaes, but she has been prescribed percocet for a knee surgery 3 weeks ago. She continues to be afebrile. No INH, not . Currently on Propofol for sedation as well as seizure control. Considered West Nile, but late in the yea for West Nile. LP results are pending. I spoke with both a neurologist and jewel blocker and sawyer at [facility]. They have accepted the patient. I did not the elevated liver enzymes that could be related to a viral syndrome or seizure. A repeat tylenol level is also pending. I do not think this represents infection given she does not have an elevated temp and normal WBC. Transfer Facility [facility] (SHEN PUGA MD) Depart Departure Latest Vital Signs Vital Signs Date Time Temp Pulse Resp B/P (MAP) Pulse Ox O2 Delivery O2 Flow Rate FiO2 07/23/17 22:35 96 13 115/73 (87) 99 07/23/17 21:51 60.0 07/23/17 21:51 Mechanical Ventilator 07/23/17 21:10 99.3 07/23/17 20:18 15.0 (SHEN PUGA MD) Impression: Primary Impression: Altered mental status Additional Impression: Status epilepticus Condition: Critical Disposition: XFER TO [facility] Problem Qualifiers Primary Impression: Altered mental status Altered mental status type: somnolence Qualified Codes: R40.0 - Somnolence MAGNUS MELARA MD Jul 23, 2017 17:41 SHEN PUGA MD Jul 23, 2017 23:13
[2017-07-23] MEDS ORDERED: MIDAZOLAM 2 MG/2 ML VIAL IVP ONE (17:45)
[2017-07-23] MEDS ORDERED: LORazepam 2 MG/ML VIAL IVP ONE (18:00)
--- NOTE | 2017-07-23 18:16 | RADIOLOGY IMAGING REPORT ---
FACILITY: [facility] - [place] PATIENT NAME: Sole Cordova : 1995 MR: [id number] V: [id number] EXAM DATE: ORDERING PHYSICIAN: MAGNUS MELARA TECHNOLOGIST: Location: [facility] Patient: Sole Cordova : 1995 Visit/Account:[id number] Date of Sevice: 07/23/2017 CT OF THE BRAIN WITHOUT CONTRAST HISTORY: Altered mental status PROCEDURE: 3.0 mm contiguous axial sections were performed through the brain. Sagittal and coronal r eformats were submitted. COMPARISON: None FINDINGS: The patient was combative and would not cooperate with the examination relating to signific ant motion blur and image degradation. BRAIN: Brain and intracranial structures: There is no mass lesion, hemorrhage or acute infarct. Orbits (included portions): Normal. Scalp: Normal. Skull: Normal. Paranasal sinuses and mastoid air cells (included portions): Suspected retention cyst or polyp in the left maxillary sinus. IMPRESSION: Imaging should be considered essentially nondiagnostic as the patient was combative and would not digital coordinator perate. There is significant motion blur. One of the following dose optimization techniques was utilized in the performance of this exam: Autom ated exposure control; adjustment of the mA and/or kV according to the patient's size; or use of an i terative reconstruction technique. Specific details can be referenced in the facility's radiology C T exam operational policy. Report Dictated By: Eliseo Walter MD at 07/23/2017 6:09 PM Report E-Signed By: Eliseo Walter MD at 07/23/2017 6:11 PM WSN:[id number]
[2017-07-23] MEDS ORDERED: FOSPHENYTOIN(*) 500 MG/10 ML V 1,000 MG in NS(*) 0.9% 100 ML BAG 80 ML IVPB ONE (18:55)
[2017-07-23] MEDS ORDERED: ETOMIDATE 20 MG/10 ML VIAL IVP ONE (19:55)
[2017-07-23] MEDS ORDERED: ROCURONIUM BROM 10 MG/ML 5 ML IVP ONE ×2 (19:55→23:05)
[2017-07-23 20:19] LABS: PLATELET COUNT, AUTOMATED 202 K/uL (150-450)
--- NOTE | 2017-07-23 20:53 | RADIOLOGY IMAGING REPORT ---
FACILITY: [facility] PATIENT NAME: Sole Cordova : 1995 MR: [id number] V: [id number] EXAM DATE: ORDERING PHYSICIAN: DREW MURRAY TECHNOLOGIST: Location: [facility] [place] Patient: Sole Cordova : 1995 Visit/Account:[id number] Date of Sevice: 07/23/2017 INDICATION: post intubation. DATE: 07/23/2017 8:41 PM. TECHNIQUE: CHEST SINGLE AP COMPARISON: Premedication radiographs FINDINGS: The endotracheal tube is low positioned lying at the jocelynn. There is patchy opacity at the left lung base. IMPRESSION: Low position of endotracheal tube at the jocelynn. Results were called to Dr. DREW MURRAY at 07/23/2017 8:42 PM. Report Dictated By: Eliseo Walter MD at 07/23/2017 8:41 PM Report E-Signed By: Eliseo Walter MD at 07/23/2017 8:48 PM WSN:[id number]
[2017-07-23] MEDS ORDERED: levETIRAcetam(*)500 MG/5 ML VI 500 MG in NS(*) 0.9% 100 ML BAG 100 ML IVPB ONE (21:15)
--- NOTE | 2017-07-23 21:56 | RADIOLOGY IMAGING REPORT ---
FACILITY: [facility] PATIENT NAME: Sole Cordova : 1995 MR: [id number] V: [id number] EXAM DATE: ORDERING PHYSICIAN: SHEN PUGA TECHNOLOGIST: Location: [facility] - [place] Patient: Sole Cordova : 1995 Visit/Account:[id number] Date of Sevice: 07/23/2017 EXAMINATION: Brain MRI without IV contrast History: Altered mental status, possible mass. COMPARISON STUDIES: Head CT obtained earlier same date. TECHNIQUE: Multi-planar, multi-sequence brain MRI was performed without IV contrast administration. FINDINGS: Paranasal sinuses / mastoid air cells: Small retention cyst left maxillary sinus. White matter: Confluent areas of restricted diffusion throughout the white matter bilaterally. Probab le small remote infarct in the body of the left caudate. Ventricles / sulci / fissures: negative Masses / hemorrhage / midline shift: negative Extra-axial spaces: negative Calvarium and scalp: Marrow signal intensity is diffusely abnormal. No focal lesion. Vascular structures: negative Sagittal midline structures: negative Orbits: negative Visualized upper neck: negative IMPRESSION: 1. There is confluent restricted diffusion throughout the white matter bilaterally. Differential cons iderations include acute ischemia, hypoperfusion, hypoglycemia and hypertensive encephalopathy. 2. Small focus of encephalomalacia in the body of the left caudate probably due to a remote infarct. 3. Diffusely abnormal marrow signal intensity, correlation for infiltrative marrow process is suggest ed. Results were called to ER physician at 2145 hours. . Report Dictated By: Tl Jackson MD at 07/23/2017 9:37 PM Report E-Signed By: Tl Jackson MD at 07/23/2017 9:51 PM WSN:[id number]
[2017-07-23] MEDS ORDERED: ACYCLOVIR 500 MG/10ML VIAL 1,000 MG in NS(*) 0.9% 250 ML BAG 250 ML IVPB SCH (22:00)
--- NOTE | 2017-07-23 22:48 | EKG ---
FACILITY: [facility] [place] PATIENT NAME: ANAND GROSS : [id number] MR: [id number] V: [id number] EXAM DATE: ORDERING PHYSICIAN: MAGNUS MELARA TECHNOLOGIST: Test Reason : Blood Pressure : / mmHG Vent. Rate : 106 BPM Atrial Rate : 106 BPM P-R Int : 148 ms QRS Dur : 084 ms QT Int : 374 ms P-R-T Axes : 036 044 032 degrees QTc Int : 496 ms Sinus tachycardia Nonspecific interventricular conduction delay Nonspecific ST-T findings QT prolonged - but less so Confirmed by ABDIRASHID YUSUF ([id number]) on 07/24/2017 6:48:56 AM Referred By: Confirmed By:ABDIRASHID YUSUF
[2017-07-23] MEDS ORDERED: PROPOFOL(*)1000 MG/100 ML VIAL 100 ML IV PRN (23:05)
[2017-07-23 23:12] LABS: INR 1.27
[2017-07-24] MEDS ORDERED: PROPOFOL(*)1000 MG/100 ML VIAL 100 ML ONE (00:09)
--- NOTE | 2017-07-24 00:15 | RADIOLOGY IMAGING REPORT ---
FACILITY: [facility] PATIENT NAME: Sole Cordova : 1995 MR: [id number] V: [id number] EXAM DATE: ORDERING PHYSICIAN: SHEN PUGA TECHNOLOGIST: Location: Patient: Sole Cordova : 1995 Visit/Account:[id number] Date of Sevice: 07/23/2017 CHEST SINGLE AP Additional pertinent History: Intubation COMPARISON STUDIES: Comparison made to a previous study from 8:24 PM Determine performance for a patient of the right fundal portion she's admitted Dr. Vyas name is evidence of old patient's film. ET tube is still 2 threaded cages at that was commented on before the of the right at the jocelynn E at this time to start weeks but may be to have centimeters to 7 in farction in thickness which is FINDINGS: Support lines and catheters: EKG wire leads. ET tube projecting down to the jocelynn. This needs to be withdrawn approximately 3 cm. Lungs and Pleura: Apparent bronchial thickening/atelectatic lung changes in the left lower lung. Heart and vasculature: Central vasculature is mildly engorged. Mild perihilar interstitial pulmonary edema suspected Soha and Mediastinum: Negative. Bones and Chest wall: Negative. Upper Abdomen: Negative. IMPRESSION: 1. ET tube tip projecting down to the jocelynn. This should be withdrawn approximately 3 cm. 2. Persistent bronchial thickening and atelectatic/infiltrative lung changes at the left lung base. Results were discussed with SHEN PUGA at 07/24/2017 12:08 AM. Report Dictated By: Frank Vyas MD at 07/24/2017 12:02 AM Report E-Signed By: Frank Vyas MD at 07/24/2017 12:11 AM WSN:[id number]
[2017-07-24] MEDS ORDERED: NS(*) 0.9% 1000 ML BAG 1,000 ML IV ONE (06:50)
== END 2017-07-24 00:24 | disposition short-term general hospital (02) ==
LOC: ER 17:19
DX: R40.0 Somnolence (principal); R56.9 Unspecified convulsions
CPT/HCPCS: 31500; 36415; 62270; 70450; 70551; 71045; 80305; 81001; 82140; 82375; 82803; 82945; 83605; 84157; 84443; 84484; 84703; 85025; 85610; 85730; 86850; 86900; 86901; 86920; 87070; 87205; 89050; 93005; 94002; 99285; 99291; C1758; G0480; J0133; J1953; J2060; J2250; J2704; J3490; J7030; J7040; J7050; P9016; Q2009; 36430; 80320; 80329; 82040; 82247; 82310; 82374; 82435; 82565; 82947; 84075; 84132; 84155; 84295; 84450; 84460; 84520; 96361; 96365; 96366; 96367; 96375; 96376

== ENCOUNTER → 2017-07-23 | Outpatient (CLI) | payer MEDICARE, MEDICAID ==
[2016-01-11 12:26] VITALS: BMI 21.8
== END ==
LOC: AMB 11:55
PROVIDERS: ATTEND Nurse Practitioner
DX: R41.82 Altered mental status, unspecified (principal); R09.02 Hypoxemia; R53.1 Weakness; R00.0 Tachycardia, unspecified
CPT/HCPCS: A0425; A0427

== ENCOUNTER → 2017-07-23 | Outpatient (REF) ==
[2016-01-11 12:26] VITALS: BMI 21.8
== END ==
LOC: AMB 23:50
PROVIDERS: ATTEND Nurse Practitioner
DX: Z02.9 Encounter for administrative examinations, unspecified (principal)

== ENCOUNTER 2017-11-06 15:15 | Outpatient (RCR) | payer MEDICARE, MEDICAID ==
[2016-01-11 12:26] VITALS: BMI 21.8
--- NOTE | 2017-08-13 13:55 | PT INITIAL EVALUATION ---
MEDICAL DIAGNOSIS: renal failure, hypoxic event, muscle weakness, balance disturbance TREATMENT DIAGNOSIS: same DATE OF ONSET: 08/04/17 SUBJECTIVE: Sole Cordova presents to physical therapy with complaints of difficulties with ambulating, strength, and balance disturbance that started on August 04, 2017. She reports that she was in a coma from renal failure and hypoxic event and was released 2-3 days ago. Furthermore, she states that she cannot walk on her heels as she feels like she is going to fall due to decreased balance. She states that it is difficult for her to stand upright without heavily utilizing her FWW. She states that she wants to improve her strength, balance, and strength so that she can return to normal daily life functional activities. Furthermore, she denies any pain and states that her R knee is doing so much better and is no longer limited by the knee pain. He denies any falls. She denies any numbness or tingling. REHAB PROBLEM LIST: Increased Pain Decreased ROM Decreased Strength Decreased Endurance Decreased Balance Decreased Function Decreased ADL's Decreased Mobility Decreased Gait PREVIOUS MEDICAL HISTORY: See EMR OCCUPATION: Unemployed OBJECTIVE: Posture: She demonstrated minimal B rounded shoulders, thoracic kyphosis, and decreased lumbar lordosis ROM: Core and B LE's WFL's, however, she demonstrated minimal increased anterior shortening and increased posterior musculature lengthening. Strength: Core: 4-/5. B hip flexion, abduction, extension: 4-/5. B knee extension: 3/5. B knee flexion and B ankle DF: 4-/5. B ankle PF and B hip adduction: 4/5. Sensation: Intact Mobility: Modified Independent Gait: Tinetti Gait: 03/01: she demonstrated the following difficulties: normal step lengths, normal foot clearance, no hesitancy within gait, increased base of support, however, she required FWW and greater than 50% of musculature support from B UE to maintain her upright posture. Furthermore, she demonstrated decreased pelvic rotation, and increased trunk flexion. Lastly, she demonstrated no heel strike and toe gait throughout the entire gait cycle due to decreased gastroc/soleus strengthening. Balance: Tinetti Balance: 03/05, She demonstrated difficulties with the following : required B UE to go from sitting to/from standing, required B UE during standing, and was unsteady with turning, with eyes closed, and with being nudged. Other Objective Findings: BP: 104/80, HR: 106 bpm, and 96 O2 without any O2 supplement. ASSESSMENT: Sole will benefit from skilled physical therapy addressing the listed impairments to improve function and QOL. Short Term Goals 6 weeks: Pt will improve core and B LE strength from baseline to 4+/5 or greater to improve function and QOL. 6 weeks: Pt will improve gastroc/soleus length to improve gait mechanics from baseline to full gastroc/soleus length along with normalized gait mechanics to improve function and QOL. 6 weeks: Pt will improve Tinetti gait and balance from baseline to greater than / to improve function and QOL> Patient's Goals improve walking, strength, and balance PLAN: Patient to be seen for Manual Therapy/STM/MET Strengthening/condition Range of Motion Spinal Stabilization Work Hardening/Cond Stretching Neuromuscular Re-ed Closed Chain Program Posture/Body mechanics Gait Trg/Balance Trg Home Exercise Program Therapeutic Activities 2x/Week for 6 Weeks If you have any questions, comments, or concerns about this report or plan, please contact me at . Thank you, Gerard Presley, PT, DPT [facility]
--- NOTE | 2017-09-24 10:55 | PT PLAN OF CARE ---
Physician: Seamus Bashir MD Patient is being seen: 2x/week Therapist: Gerard Presley, PT, DPT Medical Diagnosis: renal failure, hypoxic event, muscle weakness, balance disturbance Treatment Diagnosis: same Date of Onset: 08/04/17 Date of Initial Evaluation: 08/13/17 Date patient was last seen: 09/23/17 Number of treatments: 10 Number of cancellations/No shows: 1 INTERVENTIONS: Manual Therapy/STM/MET Strengthening/condition Range of Motion Spinal Stabilization Work Hardening/Cond Stretching Neuromuscular Re-ed Closed Chain Program Posture/Body mechanics Gait Trg/Balance Trg Home Exercise Program Therapeutic Activities GOALS: 6 weeks: Pt will improve core and B LE strength from baseline to 4+/5 or greater to improve function and QOL. Progressing 6 weeks: Pt will improve gastroc/soleus length to improve gait mechanics from baseline to full gastroc/soleus length along with normalized gait mechanics to improve function and QOL. MET 6 weeks: Pt will improve Tinetti gait and balance from baseline to greater than to improve function and QOL> MET PATIENT'S GOAL: improve walking, strength, and balance Status of Patient's Goals: Progressing well Patient Compliance: Good Prognosis: Excellent Reasons for continuing therapy: This is a progress note for Sole Cordova. She reports that she is doing much better. She reports that she feels like her walking is back to normal. She feels like her strength is almost back to normal. However, she reports that she feels like her balance is only about 50% back to normal and would like to work on balance moving forward so that she can get back to riding her skateboard. She denies any pain. She demonstrates significant improvements with strength (core and B LE strength), gait mechanics (have normalized), however, she demonstrated significant reduction in balance strategies when her vestibular system is isolated. Moving forward, we would like to address the remaining strength and balance deficits to return her to prior level of function. Posture: She demonstrated minimal B rounded shoulders, thoracic kyphosis, and decreased lumbar lordosis ROM: Core and B LE's WFL's, however, she demonstrated minimal increased anterior shortening and increased posterior musculature lengthening. Strength: Core: 4/5. B hip flexion, abduction, extension: 4/5. B knee extension : 4+/5. B knee flexion and B ankle DF: 4+/5. B ankle PF and B hip adduction: 4 +/5. Mobility: Modified Independent If you have any questions, please contact me at [phone]. Thank you, Gerard Presley, PT, DPT [facility]
[~2017-11-06 15:15] MED LIST changes: -RANI-324 PO; +RANI-366 PO
--- NOTE | 2017-11-07 08:50 | PT PLAN OF CARE ---
Physician: Seamus Bashir MD Patient is being seen: 2x/week Therapist: Gerard Presley, PT, DPT Medical Diagnosis: renal failure, hypoxic event, muscle weakness, balance disturbance, Treatment Diagnosis: same Date of Onset: 08/04/17 Date of Initial Evaluation: 08/13/17 Date patient was last seen: 11/06/17 Number of treatments: 21 Number of cancellations/No shows: 2 INTERVENTIONS: Manual Therapy/STM/MET Strengthening/condition Range of Motion Spinal Stabilization Work Hardening/Cond Stretching Neuromuscular Re-ed Closed Chain Program Posture/Body mechanics Gait Trg/Balance Trg Home Exercise Program Therapeutic Activities GOALS: 6 weeks: Pt will improve core and B LE strength from baseline to 4+/5 or greater to improve function and QOL. MET 6 weeks: Pt will improve gastroc/soleus length to improve gait mechanics from baseline to full gastroc/soleus length along with normalized gait mechanics to improve function and QOL. MET 6 weeks: Pt will improve Tinetti gait and balance from baseline to greater than to improve function and QOL> MET PATIENT'S GOAL: improve walking, strength, and balance Status of Patient's Goals: Progressing well Patient Compliance: Good Prognosis: Excellent Reasons for continuing therapy: This is a discharge note for Sole Cordova. She reports that she is doing well. She reports that she feels like her walking , strength, and balance has improved. She reports that she has returned to bike riding, scooter riding, and skate board riding.She has demonstrated significant improvements with balance, strength, and gait mechanics. She has returned to prior level of function with balance, strength, and gait mechanics. She has met all of her goals. As a result, she will be discharged from PT. Posture: She demonstrated minimal B rounded shoulders, thoracic kyphosis, and decreased lumbar lordosis ROM: Core and B LE's WFL's Strength: Core: 4+/5. B hip flexion, abduction, extension: 5/5. B knee extension : 5/5. B knee flexion and B ankle DF: 5/5. B ankle PF and B hip adduction: 5/ 5. Mobility: Independent If you have any questions, please contact me at [phone]. Thank you, Gerard Presley, PT, DPT [facility]
== END 2017-11-06 18:00 | disposition home or self-care (01) ==
LOC: PT 15:15
PROVIDERS: ATTEND Pediatrics Adolescent Medicine
DX: M62.81 Muscle weakness (generalized) (principal); R26.89 Other abnormalities of gait and mobility; N19 Unspecified kidney failure; R09.02 Hypoxemia; G40.909 Epilepsy, unspecified, not intractable, without status epilepticus
CPT/HCPCS: 97162

== ENCOUNTER 2017-11-22 22:24 | Emergency (ER) | payer MEDICARE, MEDICAID ==
[2016-01-11 12:26] VITALS: Wt 63.7 kg
[2017-11-22 22:29] VITALS: BP 117/78
--- NOTE | 2017-11-22 22:49 | ER Report ---
History and Physical Time Seen By MD: 22:34 Hx. of Stated Complaint: SLID OFF A STEP AND GOT A SPLINTER IN HER BUTT CHEEK. PT'S MOM GOT SOMEOF IT OUT ALREADY HPI/ROS CHIEF COMPLAINT: Splinter HISTORY OF PRESENT ILLNESS: 22-year-old female who presents after she was sliding down wooden stairs at her home just prior to arrival and suffered a splinter in her right buttock which she is unable to remove. She denies any other injury. REVIEW OF SYSTEMS: Respiratory: No cough, no dyspnea. Cardiovascular: No chest pain, no palpitations. Gastrointestinal: No vomiting, no abdominal pain. Musculoskeletal: No back pain. Allergies: Coded Allergies: Cephalosporins (Verified Allergy, Unknown, RASH, 11/22/17) cefixime (Verified Allergy, Unknown, RASH, 11/22/17) ceftazidime (Verified Allergy, Unknown, HIVES, 11/22/17) cephalexin (Verified Allergy, Unknown, RASH, 11/22/17) gluten (Verified Allergy, Unknown, 11/22/17) nystatin (Verified Allergy, Unknown, HIVES, 11/22/17) Gadolinium-Containing Contrast Medi (Verified Adverse Reaction, Unknown, ) ESRD Home Meds Active Scripts Ondansetron Hcl (ZOFRAN) 4 Mg Tablet, 4 MG PO Q8-12H Y for NAUSEA/VOMITING, #10 Prov:KIMBERLI ELIZONDO DO 07/21/17 Promethazine Hcl (PROMETHAZINE HCL) 25 Mg Tablet, 25 MG PO Q4H Y for NAUSEA/ VOMITING, #20 TAB Prov:KIMBERLI ELIZONDO DO 07/21/17 Medroxyprogesterone Acetate (PROVERA) 10 Mg Tablet, 10 MG PO DAILY, #10 TAB Prov:JAJA VALADEZ MECHANICAL LEAD- 07/12/17 Reported Medications [ Cont] No Conflict Check 07/16/17 Hydrocodone Bit/Acetaminophen (HYDROCODON-ACETAMINOPHEN 5-325) 1 Each Tablet, 1- 2 EACH PO Q4-6H Y for PAIN, #30 TAB 07/04/17 Olanzapine (OLANZAPINE) 2.5 Mg Tablet, 2.5 MG PO mon,wed,fri 06/23/17 Olanzapine (OLANZAPINE) 10 Mg Tablet, 10 MG PO QHS 06/16/17 Ranitidine Hcl (ZANTAC) 150 Mg Tablet, 150 MG PO BID, TAB 06/07/17 Fluoxetine Hcl (PROZAC) 20 Mg Capsule, 20 MG PO QDAY, CAPSULE 06/04/17 Guanfacine Hcl (INTUNIV) 2 Mg Tab.er.24h, 2 MG PO DAILY 05/15/17 Calcium Acetate (CALCIUM ACETATE) 667 Mg Tablet, 667 MG PO PRN Y for with snacks 05/09/17 Calcium Acetate (CALCIUM ACETATE) 667 Mg Tablet, 2668 MG PO TIDCF 05/09/17 Albuterol Sulfate (VENTOLIN HFA) 18 Gm Inh, 1-2 PUFF INH 3-4XD, INH 05/09/17 Diphenhydramine Hcl (BENADRYL) 25 Mg Capsule, 50 MG PO BID Y for ANXIETY, CAPSULE 01/04/15 Folic Acid/Vitamin B Comp W-C (RENAL CAPS SOFTGEL) 1 Mg Capsule, 1 MG PO DAILY, CAPSULE 08/10/14 Atorvastatin Calcium (LIPITOR) 10 Mg Tablet, 10 MG PO QDAY, TAB TAKE ONE TABLET BY MOUTH EVERY DAY 07/29/14 Melatonin (MELATONIN) 3 Mg Tablet.er, 6 MG PO QHS Y for SLEEP TAKE 6 MG (2 TABS) AT BEDTIME NEEDED FOR SLEEP 11/08/13 Hx Smoking: No Smoking Status: Never Smoker Exposure to Second Hand Smoke?: No Hx Substance Use Disorder: No Hx Alcohol Use: No Constitutional Vital Sign - Last 24 Hours 11/22/17 22:29 Temp 97.5 Pulse 129 Resp 16 B/P (MAP) 117/78 Pulse Ox 93 O2 Delivery Room Air Physical Exam General appearance: Alert, no distress. Skin: Small abrasion at base of right buttock, palpation of skin cephalad to abrasion consistent with superficial soft tissue foreign body. No signs of infection. No discharge. DIFFERENTIAL DIAGNOSIS: After history and physical exam differential diagnosis was considered for right buttock pain include abrasion, foreign body, abscess. Medical Decision Making ED Course/Re-evaluation ED Course 1.5 cm linear wooden splinter removed from right buttock. No further foreign body noted. Wound dressing information given to patient. Procedure Procedure: Foreign body removal. A wood splinter foreign body was removed from right buttock. To remove the foreign body a small 0.5 cm incision was required. The procedure was performed manually, with dissection under local anesthesia, 1 mL of 2% lidocaine with epinephrine was injected subcutaneously the procedure was performed by myself. 1.5 cm wood splinter was removed, no further foreign body was noted on exam. Wound was dressed. Tetanus was updated. Decision to Disposition Date: November 22, 2017 Decision to Disposition Time: 22:47 Depart Departure Latest Vital Signs Vital Signs Date Time Temp Pulse Resp B/P (MAP) Pulse Ox O2 Delivery O2 Flow Rate FiO2 11/22/17 22:29 97.5 129 16 117/78 93 Room Air Impression: Primary Impression: Foreign body (FB) in soft tissue Condition: Improved Disposition: HOME OR SELF-CARE Referrals: THOM HOLLINS MD (PCP) Patient Instructions: Acute Wound Care (ED), Soft Tissue Foreign Body (ED) JENNA OSPINA MD November 22, 2017 22:49
[2017-11-22] MEDS ORDERED: DIPHTH/TETANUS/ACEL. PERTUSSIS IM ONLY ONE (22:50)
== END 2017-11-22 23:03 | disposition home or self-care (01) ==
LOC: ER 22:44
DX: S30.850A Superficial foreign body of lower back and pelvis, initial encounter (principal)
CPT/HCPCS: 90471; 90715; 99283

== ENCOUNTER 2018-01-21 22:38 | Emergency (ER) | payer MEDICARE, MEDICAID ==
[2016-01-11 12:26] VITALS: Wt 63.7 kg
--- NOTE | 2018-01-21 22:42 | ER Report ---
History and Physical Time Seen By MD: 22:40 HPI/ROS CHIEF COMPLAINT: Dysuria, continued menses, nausea HISTORY OF PRESENT ILLNESS: 22-year-old female with a history of end-stage renal disease on hemodialysis, status post multiple failed renal transplants. Patient's complaining of burning with urination and nausea. Patient is had her last menstrual period lasting 3 weeks and continuing at this time. Initially she was passing large clots now just dark spotting. Patient denies risk of . Patient notes urinary burning. She notes no fever or chills. And she has chronic nausea. Patient notes that she vomited several times tonight. REVIEW OF SYSTEMS: Respiratory: No cough, no dyspnea. Cardiovascular: No chest pain, no palpitations. Gastrointestinal: As above Musculoskeletal: No back pain. Allergies: Coded Allergies: Cephalosporins (Verified Allergy, Unknown, RASH, 11/22/17) cefixime (Verified Allergy, Unknown, RASH, 11/22/17) ceftazidime (Verified Allergy, Unknown, HIVES, 11/22/17) cephalexin (Verified Allergy, Unknown, RASH, 11/22/17) gluten (Verified Allergy, Unknown, 11/22/17) nystatin (Verified Allergy, Unknown, HIVES, 11/22/17) Gadolinium-Containing Contrast Medi (Verified Adverse Reaction, Unknown, ) ESRD Home Meds Active Scripts Promethazine Hcl (PROMETHAZINE HCL) 25 Mg Tablet, 25 MG PO Q4H Y for NAUSEA/ VOMITING, #20 TAB Prov:KIMBRELI ELIZONDO 01/21/18 Reported Medications Levetiracetam (LEVETIRACETAM) 500 Mg Tab.er.24h, 500 MG PO QDAY, TAB 01/21/18 [ Cont] No Conflict Check 07/16/17 Olanzapine (OLANZAPINE) 2.5 Mg Tablet, 2.5 MG PO mon,wed,fri 06/23/17 Olanzapine (OLANZAPINE) 10 Mg Tablet, 10 MG PO QHS 06/16/17 Ranitidine Hcl (ZANTAC) 150 Mg Tablet, 150 MG PO BID, TAB 06/07/17 Fluoxetine Hcl (PROZAC) 20 Mg Capsule, 20 MG PO QDAY, CAPSULE 06/04/17 Guanfacine Hcl (INTUNIV) 2 Mg Tab.er.24h, 2 MG PO DAILY 05/15/17 Calcium Acetate (CALCIUM ACETATE) 667 Mg Tablet, 667 MG PO PRN Y for with snacks 05/09/17 Calcium Acetate (CALCIUM ACETATE) 667 Mg Tablet, 2668 MG PO TIDCF 05/09/17 Albuterol Sulfate (VENTOLIN HFA) 18 Gm Inh, 1-2 PUFF INH 3-4XD, INH 05/09/17 Diphenhydramine Hcl (BENADRYL) 25 Mg Capsule, 50 MG PO BID Y for ANXIETY, CAPSULE 01/04/15 Folic Acid/Vitamin B Comp W-C (RENAL CAPS SOFTGEL) 1 Mg Capsule, 1 MG PO DAILY, CAPSULE 08/10/14 Atorvastatin Calcium (LIPITOR) 10 Mg Tablet, 10 MG PO QDAY, TAB TAKE ONE TABLET BY MOUTH EVERY DAY 07/29/14 Melatonin (MELATONIN) 3 Mg Tablet.er, 6 MG PO QHS Y for SLEEP TAKE 6 MG (2 TABS) AT BEDTIME NEEDED FOR SLEEP 11/08/13 Discontinued Reported Medications Hydrocodone Bit/Acetaminophen (HYDROCODON-ACETAMINOPHEN 5-325) 1 Each Tablet, 1- 2 EACH PO Q4-6H Y for PAIN, #30 TAB 07/04/17 Discontinued Scripts Ondansetron Hcl (ZOFRAN) 4 Mg Tablet, 4 MG PO Q8-12H Y for NAUSEA/VOMITING, #10 Prov:KIMBERLI ELIZONDO DO 07/21/17 Promethazine Hcl (PROMETHAZINE HCL) 25 Mg Tablet, 25 MG PO Q4H Y for NAUSEA/ VOMITING, #20 TAB Prov:KIMBERLI ELIZONDO DO 07/21/17 Medroxyprogesterone Acetate (PROVERA) 10 Mg Tablet, 10 MG PO DAILY, #10 TAB Prov:JAJA VALADEZ [facility]- 07/12/17 Reviewed Nurses Notes: Yes Old Medical Records Reviewed: Yes Hx Smoking: No Smoking Status: Never Smoker Exposure to Second Hand Smoke?: No Hx Substance Use Disorder: No Hx Alcohol Use: No Constitutional Vital Sign - Last 24 Hours 01/21/18 01/21/18 01/21/18 01/21/18 22:46 22:48 23:00 23:08 Temp 98.0 Pulse 104 84 Resp 17 B/P (MAP) 134/89 134/89 (104) 118/76 (90) Pulse Ox 94 92 O2 Delivery Room Air 7/11/0501/21/18 01/21/18 23:30 23:38 23:43 Pulse 75 81 B/P (MAP) 105/69 (81) Pulse Ox 94 90 Physical Exam General Appearance: The patient is alert, has no immediate need for airway protection and no current signs of toxicity. Vital signs stable, afebrile, pulse ox normal. Skin warm, dry, pink HEENT: Pupils equal and round no injection. Oropharynx without redness or exudate, mucous members are moist Respiratory: Chest is non tender, lungs are clear to auscultation. Cardiac: regular rate and rhythm Gastrointestinal: Abdomen is soft and non tender, no masses, bowel sounds normal. No CVA tenderness Musculoskeletal: Neck: Neck is supple and non tender. No lymphadenopathy Extremities have full range of motion and are non tender. Skin: No rashes or lesions. DIFFERENTIAL DIAGNOSIS: After history and physical exam differential diagnosis was considered for abdominal pain including but not limited to appendicitis, cholecystitis, gastritis and urinary tract infection. Medical Decision Making Data Points Laboratory Hematology Test 01/21/18 22:47 Urine Color Yellow Urine Clarity Slightly-cloudy Urine pH 9.0 pH (4.8-9.5) Urine Specific [place] 1.004 Urine Protein 30 mg/dL (NEGATIVE) Urine Glucose (UA) 50 mg/dL (NEGATIVE) Urine Ketones Negative mg/dL (NEGATIVE) Urine Blood Moderate (NEGATIVE) Urine Nitrite Negative (NEGATIVE) Urine Bilirubin Negative (NEGATIVE) Urine Urobilinogen Negative mg/dL (0.2-1.9) Urine Leukocyte Esterase Negative (NEGATIVE) Urine RBC None /HPF (0-2/HPF) Urine WBC None /HPF (0-5/HPF) Urine Squamous Epithelial Cells Many /LPF (</=FEW) Urine Transitional Epithelial Cells Few /LPF (NONE-FEW) Urine Amorphous Crystals Few /HPF Urine Bacteria Negative /HPF (NONE-FEW) Urine Mucus None /HPF (NONE-FEW) Urine HCG, Qualitative Negative (NEGATIVE) Chemistry Test 01/21/18 22:47 Urine Color Yellow Urine Clarity Slightly-cloudy Urine pH 9.0 pH (4.8-9.5) Urine Specific [place] 1.004 Urine Protein 30 mg/dL (NEGATIVE) Urine Glucose (UA) 50 mg/dL (NEGATIVE) Urine Ketones Negative mg/dL (NEGATIVE) Urine Blood Moderate (NEGATIVE) Urine Nitrite Negative (NEGATIVE) Urine Bilirubin Negative (NEGATIVE) Urine Urobilinogen Negative mg/dL (0.2-1.9) Urine Leukocyte Esterase Negative (NEGATIVE) Urine RBC None /HPF (0-2/HPF) Urine WBC None /HPF (0-5/HPF) Urine Squamous Epithelial Cells Many /LPF (</=FEW) Urine Transitional Epithelial Cells Few /LPF (NONE-FEW) Urine Amorphous Crystals Few /HPF Urine Bacteria Negative /HPF (NONE-FEW) Urine Mucus None /HPF (NONE-FEW) Urine HCG, Qualitative Negative (NEGATIVE) Urinalysis Test 01/21/18 22:47 Urine Color Yellow Urine Clarity Slightly-cloudy Urine pH 9.0 pH (4.8-9.5) Urine Specific [place] 1.004 Urine Protein 30 mg/dL (NEGATIVE) Urine Glucose (UA) 50 mg/dL (NEGATIVE) Urine Ketones Negative mg/dL (NEGATIVE) Urine Blood Moderate (NEGATIVE) Urine Nitrite Negative (NEGATIVE) Urine Bilirubin Negative (NEGATIVE) Urine Urobilinogen Negative mg/dL (0.2-1.9) Urine Leukocyte Esterase Negative (NEGATIVE) Urine RBC None /HPF (0-2/HPF) Urine WBC None /HPF (0-5/HPF) Urine Squamous Epithelial Cells Many /LPF (</=FEW) Urine Transitional Epithelial Cells Few /LPF (NONE-FEW) Urine Amorphous Crystals Few /HPF Urine Bacteria Negative /HPF (NONE-FEW) Urine Mucus None /HPF (NONE-FEW) Urine HCG, Qualitative Negative (NEGATIVE) ED Course/Re-evaluation ED Course Patient was admitted to an examination room. H&P was done. The differential diagnoses was considered. On clinical examination. Patient has a benign abdominal examination. A urinalysis is sent off which is unremarkable. Urinary is negative. Patient's medicated with Phenergan orally. Patient's results are discussed with her. She does not have an acute urinary tract infection. She is advised to use Uristat or Azo-Standard for symptomatically relief. She's given Phenergan to control her nausea. She is advised to follow-up with her [employer], Dr. Smith for evaluation and treatment of her dysfunctional uterine bleeding. Decision to Disposition Date: Jan 21, 2018 Decision to Disposition Time: 23:42 Depart Departure Latest Vital Signs Vital Signs Date Time Temp Pulse Resp B/P (MAP) Pulse Ox O2 Delivery O2 Flow Rate FiO2 01/21/18 23:43 81 90 01/21/18 23:30 105/69 (81) 01/21/18 22:46 98.0 17 Room Air Impression: Primary Impression: Dysuria Additional Impressions: Hemodialysis patient Dysfunctional uterine bleeding Condition: Improved Disposition: HOME OR SELF-CARE Referrals: THOM HOLLINS MD (PCP) New Scripts Promethazine Hcl (PROMETHAZINE HCL) 25 Mg Tablet 25 MG PO Q4H Y for NAUSEA/VOMITING, #20 TAB Prov: KIMBERLI ELIZONDO DO 01/21/18 Patient Instructions: Dysfunctional Uterine Bleeding (ED), Dysuria (ED) Additional Instructions: Follow-up with Dr. Smith [employer] for evaluation and treatment of your abnormal bleeding Take Uristat or Azo-Standard for your urinary burning Follow-up with your primary care if unimproved in 3-5 days. Problem Qualifiers KIMBERLI ELIZONDO DO Jan 21, 2018 22:42
[2018-01-21] MEDS ORDERED: LEVE500T75 PO (22:56)
[2018-01-21] MEDS ORDERED: PROMETHAZINE HCL 25 MG TAB PO ONE (23:05)
[2018-01-21 23:30] VITALS: BP 105/69
[2018-01-21] MEDS ORDERED: PROM-110 PO (23:47)
== END 2018-01-21 23:53 | disposition home or self-care (01) ==
LOC: ER 22:50
DX: R30.0 Dysuria (principal); N93.8 Other specified abnormal uterine and vaginal bleeding; N18.6 End stage renal disease; Z99.2 Dependence on renal dialysis; Z94.0 Kidney transplant status
CPT/HCPCS: 81001; 81025; 99283; Q0169

== ENCOUNTER 2018-02-07 06:11 | Emergency (ER) | payer MEDICARE, MEDICAID ==
[2016-01-11 12:26] VITALS: Wt 68.6 kg
[~2018-02-07 06:11] MED LIST changes: +LEVE500T75 PO
--- NOTE | 2018-02-07 06:18 | ER Report ---
History and Physical Time Seen By MD: 06:18 (KIMBERLI ELIZONDO DO) Time Seen By MD: 07:04 (ALIDA LOERA MD) HPI/ROS CHIEF COMPLAINT: Fluid overload HISTORY OF PRESENT ILLNESS:This is a 22-year-old female with history of end- stage renal disease was supposed to be on hemodialysis. She has had multiple failed renal transplants. She states that she missed dialysis last Friday and again this past Friday. She did however receive dialysis yesterday despite this she states she still feeling short of breath. She eyes any cough or productive sputum.. She denies any fevers or chills. She states that her usual postdialysis weight is around 64-65 kg. She states that she is currently around 68.6 kg. Patient state that she missed dialysis because she "does not like to go ". Her normal routine is Wednesdays and Fridays. She denies any additional fluid intake. Hemoglobin on February 06 was 7.8. And with a range between 7.7 and 8.6 over the last 30 days. Creatinine on February 06 was 13.4; baseline creatinine ranges from 8-10. Her predialysis BUN was 84 postdialysis BUN 20 with a urea reduction ratio of 76.2. REVIEW OF SYSTEMS: Constitutional: No fever, no chills. Eyes: No discharge. ENT: No sore throat. Cardiovascular: No chest pain, no palpitations. Respiratory: Shortness of breath, no cough Gastrointestinal: No abdominal pain, reports nausea without vomiting Genitourinary: No hematuria. Musculoskeletal: No back pain. Skin: No rashes. Neurological: No headache. (ALIDA LOERA MD) Allergies: Coded Allergies: Cephalosporins (Verified Allergy, Unknown, RASH, 11/22/17) cefixime (Verified Allergy, Unknown, RASH, 11/22/17) ceftazidime (Verified Allergy, Unknown, HIVES, 11/22/17) cephalexin (Verified Allergy, Unknown, RASH, 11/22/17) gluten (Verified Allergy, Unknown, 11/22/17) nystatin (Verified Allergy, Unknown, HIVES, 11/22/17) Gadolinium-Containing Contrast Medi (Verified Adverse Reaction, Unknown, ) ESRD Home Meds Active Scripts Promethazine Hcl (PROMETHAZINE HCL) 25 Mg Tablet, 25 MG PO Q4H Y for NAUSEA/ VOMITING, #20 TAB Prov:KIMBERLI ELIZONDO DO 01/21/18 Reported Medications Levetiracetam (LEVETIRACETAM) 500 Mg Tab.er.24h, 500 MG PO QDAY, TAB 01/21/18 Olanzapine (OLANZAPINE) 2.5 Mg Tablet, 2.5 MG PO mon,fri,fri06/23/17 Olanzapine (OLANZAPINE) 10 Mg Tablet, 10 MG PO QHS 06/16/17 Ranitidine Hcl (ZANTAC) 150 Mg Tablet, 150 MG PO BID, TAB 06/07/17 Fluoxetine Hcl (PROZAC) 20 Mg Capsule, 20 MG PO QDAY, CAPSULE 06/04/17 Guanfacine Hcl (INTUNIV) 2 Mg Tab.er.24h, 2 MG PO DAILY 05/15/17 Calcium Acetate (CALCIUM ACETATE) 667 Mg Tablet, 667 MG PO PRN Y for with snacks 05/09/17 Calcium Acetate (CALCIUM ACETATE) 667 Mg Tablet, 2668 MG PO TIDCF 05/09/17 Albuterol Sulfate (VENTOLIN HFA) 18 Gm Inh, 1-2 PUFF INH 3-4XD, INH 05/09/17 Diphenhydramine Hcl (BENADRYL) 25 Mg Capsule, 50 MG PO BID Y for ANXIETY, CAPSULE 01/04/15 Folic Acid/Vitamin B Comp W-C (RENAL CAPS SOFTGEL) 1 Mg Capsule, 1 MG PO DAILY, CAPSULE 08/10/14 Atorvastatin Calcium (LIPITOR) 10 Mg Tablet, 10 MG PO QDAY, TAB TAKE ONE TABLET BY MOUTH EVERY DAY 07/29/14 Melatonin (MELATONIN) 3 Mg Tablet.er, 6 MG PO QHS Y for SLEEP TAKE 6 MG (2 TABS) AT BEDTIME NEEDED FOR SLEEP 11/08/13 Discontinued Reported Medications [ Cont] No Conflict Check 07/16/17 Past Medical/Surgical History Past medical history for end-stage renal disease on hemodialysis Wednesdays and Fridays. She is status post multiple failed renal transplants. History of asthma. History of encephalitis. (ALIDA LOERA MD) Reviewed Nurses Notes: Yes Old Medical Records Reviewed: Yes (KIMBERLI ELIZONDO DO) Hx Smoking: No Smoking Status: Never Smoker Exposure to Second Hand Smoke?: No Hx Substance Use Disorder: No Hx Alcohol Use: No (KMIBERLI ELIZONDO DO) Constitutional Vital Sign - Last 24 Hours 02/07/18 02/07/18 02/07/18 02/07/18 06:20 06:22 06:27 06:41 Temp 98.1 Pulse 69 67 Resp 16 B/P (MAP) 121/100 (107) 121/100 125/96 (106) Pulse Ox 94 86 O2 Delivery Room Air 02/07/18 02/07/18 02/07/18 02/07/18 07:09 07:09 07:11 07:34 Pulse 63 Resp 20 B/P (MAP) 147/107 (120) Pulse Ox 83 98 O2 Delivery Room Air O2 Flow Rate 2.0 02/07/18 07:41 Pulse 64 Pulse Ox 98 (ALIDA LOERA MD) Physical Exam General/Constitutional: Patient is awake, alert, nontoxic is requiring 2 L nasal cannula to keep oxygen saturations greater than 94%. Head: Normocephalic and atraumatic. Eyes: Conjunctival clear, Pupils are equal and reactive to light. Extraocular muscles are intact and symmetrical. Sclera are clear and anicteric. Ears:External canals are clear. Tympanic membranes are clear with normal landmarks and light reflex. Nares: No rhinorrhea or bleeding. Turbinates are pink and moist. Oropharyngeal: Mucous membranes are moist. There is no pharyngeal erythema or exudate. There are no palatal petechiae. Uvula is midline and symmetrical. Neck: Supple, no adenopathy. Cardiovascular: Heart is regular rate and rhythm without audible murmurs, rubs or gallops. Pulmonary: Lungs are noted for bibasilar rales but otherwise clear Abdomen: Soft, nontender, no guarding or peritoneal signs. Extremities: No gross deformities, No peripheral cyanosis. Able to move all 4 extremities. Neuro: Alert and oriented X3, GCS is 15 Skin: No rashes, skin is warm dry and well perfused. (ALIDA LOERA MD) Medical Decision Making Data Points Result Diagram: 02/07/1817 02/07/18 0717 Laboratory Hematology Test 02/07/18 07:17 Red Blood Count 2.85 M/uL (4.17-5.56) Mean Corpuscular Volume 89.8 fL (80.0-96.0) Mean Corpuscular Hemoglobin 30.9 pg (26.0-33.0) Mean Corpuscular Hemoglobin Concent 34.5 g/dL (32.0-36.0) Red Cell Distribution Width 14.8 % (11.5-14.5) Mean Platelet Volume 7.9 fL (7.2-11.1) Neutrophils (%) (Auto) 44.9 % (39.4-72.5) Lymphocytes (%) (Auto) 39.4 % (17.6-49.6) Monocytes (%) (Auto) 12.0 % (4.1-12.4) Eosinophils (%) (Auto) 2.8 % (0.4-6.7) Basophils (%) (Auto) 0.9 % (0.3-1.4) Nucleated RBC Relative Count (auto) 0.2 /100WBC Neutrophils # (Auto) 1.3 K/uL (2.0-7.4) Lymphocytes # (Auto) 1.1 K/uL (1.3-3.6) Monocytes # (Auto) 0.3 K/uL (0.3-1.0) Eosinophils # (Auto) 0.1 K/uL (0.0-0.5) Basophils # (Auto) 0.0 K/uL (0.0-0.1) Nucleated RBC Absolute Count (auto) 0.01 K/uL Sodium Level 138 mmol/L (137-145) Potassium Level 4.0 mmol/L (3.5-5.0) Chloride Level 95 mmol/L (98-107) Carbon Dioxide Level 29 mmol/L (22-31) Blood Urea Nitrogen 36 mg/dl (7-18) Creatinine 7.10 mg/dl (0.52-1.04) Glomerular Filtration Rate Calc 7.4 Random Glucose 95 mg/dl (75-110) Calcium Level 7.3 mg/dl (8.4-10.2) Total Bilirubin 0.3 mg/dl (0.2-1.3) Aspartate Amino Transf (AST/SGOT) 27 U/L (0-35) Alanine Aminotransferase (ALT/SGPT) 25 U/L (0-56) Alkaline Phosphatase 286 U/L (0-126) Troponin I < 0.012 ng/ml B-Type Natriuretic Peptide 694 pg/ml (0-100) Total Protein 7.1 g/dl (6.3-8.2) Albumin 4.3 g/dl (3.5-5.0) Human Chorionic Gonadotropin, Qual Negative (NEGATIVE) Chemistry Test 02/07/18 07:17 White Blood Count 2.9 k/uL (4.5-11.0) Red Blood Count 2.85 M/uL (4.17-5.56) Hemoglobin 8.8 g/dL (12.0-16.0) Hematocrit 25.6 % (34.0-47.0) Mean Corpuscular Volume 89.8 fL (80.0-96.0) Mean Corpuscular Hemoglobin 30.9 pg (26.0-33.0) Mean Corpuscular Hemoglobin Concent 34.5 g/dL (32.0-36.0) Red Cell Distribution Width 14.8 % (11.5-14.5) Platelet Count 175 K/uL (150-450) Mean Platelet Volume 7.9 fL (7.2-11.1) Neutrophils (%) (Auto) 44.9 % (39.4-72.5) Lymphocytes (%) (Auto) 39.4 % (17.6-49.6) Monocytes (%) (Auto) 12.0 % (4.1-12.4) Eosinophils (%) (Auto) 2.8 % (0.4-6.7) Basophils (%) (Auto) 0.9 % (0.3-1.4) Nucleated RBC Relative Count (auto) 0.2 /100WBC Neutrophils # (Auto) 1.3 K/uL (2.0-7.4) Lymphocytes # (Auto) 1.1 K/uL (1.3-3.6) Monocytes # (Auto) 0.3 K/uL (0.3-1.0) Eosinophils # (Auto) 0.1 K/uL (0.0-0.5) Basophils # (Auto) 0.0 K/uL (0.0-0.1) Nucleated RBC Absolute Count (auto) 0.01 K/uL Glomerular Filtration Rate Calc 7.4 Calcium Level 7.3 mg/dl (8.4-10.2) Total Bilirubin 0.3 mg/dl (0.2-1.3) Aspartate Amino Transf (AST/SGOT) 27 U/L (0-35) Alanine Aminotransferase (ALT/SGPT) 25 U/L (0-56) Alkaline Phosphatase 286 U/L (0-126) Troponin I < 0.012 ng/ml B-Type Natriuretic Peptide 694 pg/ml (0-100) Total Protein 7.1 g/dl (6.3-8.2) Albumin 4.3 g/dl (3.5-5.0) Human Chorionic Gonadotropin, Qual Negative (NEGATIVE) (ALIDA LOERA MD) EKG/Imaging EKG Interpretation EKG shows normal sinus rhythm with ventricular rate of 66 bpm. Monitor Interpretation: Normal Sinus Rhythm Imaging FACILITY: [facility] PATIENT NAME: Sole Cordova : 1995 MR: [id number] V: [id number] EXAM DATE: ORDERING PHYSICIAN: KIMBERLI ELIZONDO TECHNOLOGIST: [facility] [place] Patient: Sole Cordova : 1995 Visit/Account:[id number] Date of Sevice: 02/07/2018 EXAMINATION: Chest radiographs 2 views HISTORY: Dyspnea. Fluid overload? Dialysis patient. COMPARISON: 07/23/2017. FINDINGS: PA and lateral views of the chest are submitted. Lines/tubes: Endotracheal and gastric tubes have been removed since previous exam. Lungs/pleura: No focal consolidation or pleural effusion. Heart: Negative. Mediastinum: Negative. Bony structures/body wall: Negative. IMPRESSION: No radiographic evidence of acute cardiopulmonary disease or pulmonary edema. Report Dictated By: Chacha Morocho MD at 02/07/2018 8:21 AM Report E-Signed By: Chacha Morocho MD at 02/07/2018 8:23 AM WSN:[id number] (ALIDA LOERA MD) ED Course/Re-evaluation Clinical Indication for ER IV: IV Access ED Course 02/07/2018 7:13:33 am later this time will be to perform a medical workup. We will look into seeing whether or not we are able to do dialysis at the patient at this facility today or not. Patient was made aware that she may require transfer. 02/07/2018 8:16:40 am bloodwork shows creatinine of 7.1 hemoglobin of 8.8 BUN of 36. I'm awaiting official read of chest x-ray however there does not appear to be any significant fluid overload. It is unlikely the patient will require any type of emergent dialysis today we could consider sending her home on oxygen and having her follow-up Friday for her next scheduled routine dialysis. Decision to Disposition Date: Feb 07, 2018 Decision to Disposition Time: 08:32 (ALIDA LOERA MD) Depart Departure Latest Vital Signs Vital Signs Date Time Temp Pulse Resp B/P (MAP) Pulse Ox O2 Delivery O2 Flow Rate FiO2 02/07/18 07:41 64 98 02/07/18 07:34 147/107 (120) 02/07/18 07:09 20 Room Air 02/07/18 07:09 2.0 02/07/18 06:22 98.1 (ALIDA LOERA MD) Impression: Primary Impression: Dyspnea Condition: Improved Disposition: HOME OR SELF-CARE Referrals: THOM HOLLINS MD (PCP) 2 Days Departure Forms: ER Transition Record, Home Oxygen, Nebulizer RX, Durable Medical Equipment-Oxygen: Oxygen Concentrator, Portable Oxygen Gas Reason for Use/Diagnosis: dyspnea Start Date of the Order: Feb 07, 2018 Dosage or Concentration (if applicable) - LPM: 2 Route of Administration (if applicable): Nasal Cannula Frequency of Use: Continuous Duration Home O2 Required: 7 Duration Units: Days Room Air Oxygen Saturation: 84 ER Prescribing Physician's Name: Alida Loera NPI Numbers for Local ER MDs: Luz Maria [id number] Medications Reconciliation, Patient Portal Information Patient Instructions: Dyspnea (ED) Additional Instructions: Be sure to go to your scheduled dialysis on Friday. Wearing her oxygen at home over the next week. Problem Qualifiers Primary Impression: Dyspnea Dyspnea type: shortness of breath Qualified Codes: R06.02 - Shortness of breath KIMBERLI ELIZONDO DO Feb 07, 2018 06:18 ALIDA LOERA MD Feb 07, 2018 07:14
[2018-02-07] MEDS ORDERED: PROMETHAZINE 25 MG/ML 1 ML AMP IVP ONE (06:45)
[2018-02-07] MEDS ORDERED: ONDANSETRON 4 MG/2 ML VIAL IVP ONE (06:45)
[2018-02-07 07:31] LABS: PLATELET COUNT, AUTOMATED 175 K/uL (150-450)
--- NOTE | 2018-02-07 08:26 | RADIOLOGY IMAGING REPORT ---
FACILITY: [facility] [place] PATIENT NAME: Sole Cordova : 1995 MR: [id number] V: [id number] EXAM DATE: ORDERING PHYSICIAN: KIMBERLI ELIZONDO TECHNOLOGIST: Location: [facility] [place] Patient: Sole Cordova : 1995 Visit/Account:[id number] Date of Sevice: 02/07/2018 EXAMINATION: Chest radiographs 2 views HISTORY: Dyspnea. Fluid overload? Dialysis patient. COMPARISON: 07/23/2017. FINDINGS: PA and lateral views of the chest are submitted. Lines/tubes: Endotracheal and gastric tubes have been removed since previous exam. Lungs/pleura: No focal consolidation or pleural effusion. Heart: Negative. Mediastinum: Negative. Bony structures/body wall: Negative. IMPRESSION: No radiographic evidence of acute cardiopulmonary disease or pulmonary edema. Report Dictated By: Chacha Morocho MD at 02/07/2018 8:21 AM Report E-Signed By: Chacha Morocho MD at 02/07/2018 8:23 AM [id number]
[2018-02-07 09:00] VITALS: BP 168/109
--- NOTE | 2018-02-07 11:19 | EKG ---
FACILITY: [facility] - [place] PATIENT NAME: ANAND GROSS : [id number] MR: [id number]: [id number] EXAM DATE: ORDERING PHYSICIAN: KIMBERLI ELIZONDO TECHNOLOGIST: SHAMIR Law Reason : SOB Blood Pressure : / mmHG Vent. Rate : 066 BPM Atrial Rate : 066 BPM P-R Int : 166 ms QRS Dur : 082 ms QT Int : 492 ms P-R-T Axes : 034 025 062 degrees QTc Int : 515 ms Sinus rhythm Nonspecific ST findings - suspect early repolarization, but cannot exclude other causes Prolonged QT Abnormal ECG Confirmed by ABDIRASHID YUSUF ([id number]) on 02/07/2018 11:29:43 AM Referred By: Confirmed By:ABDIRASHID YUSUF
== END 2018-02-07 09:09 | disposition home or self-care (01) ==
LOC: ER 06:28
DX: R06.02 Shortness of breath (principal)
CPT/HCPCS: 36415; 71046; 83880; 84484; 84703; 85025; 93005; 96374; 96375; 99284; J2405; J2550; 82040; 82247; 82310; 82374; 82435; 82565; 82947; 84075; 84132; 84155; 84295; 84450; 84460; 84520

== ENCOUNTER → 2018-03-11 | Outpatient (REF) | payer MEDICARE, MEDICAID ==
[2016-01-11 12:26] VITALS: BMI 21.8
[~2018-03-11] MED LIST changes: +CALC11776 PO; +OLAN15TA19 PO; +SODI650T7 PO
== END ==
LOC: ZZSENDIN 15:00
PROVIDERS: ATTEND Nurse Practitioner Psychiatric/Mental Health
DX: R53.83 Other fatigue (principal); Z79.899 Other long term (current) drug therapy
CPT/HCPCS: 82306; 82746; 83036; 84439; 84443

== ENCOUNTER 2018-04-16 20:28 | Emergency (ER) | payer MEDICARE, MEDICAID ==
[2016-01-11 12:26] VITALS: Wt 68.6 kg
[~2018-04-16 20:28] MED LIST changes: +AMLO-111 PO; -AMLO-96 PO
[2018-04-16 20:33] VITALS: BP 129/100
--- NOTE | 2018-04-16 20:46 | ER Report ---
History and Physical Time Seen By MD: 20:41 Hx. of Stated Complaint: PT WORRIED ABOUT FISTULA NOT WORKING RIGHT HPI/ROS CHIEF COMPLAINT: Dialysis fistula not working HISTORY OF PRESENT ILLNESS: 22-year-old female on hemodialysis for end-stage renal disease. Patient thinks that she does not note a thrill in her AV graft. Patient states she underwent dialysis yesterday.. Patient thinks that there is no thrill in her AV graft. She notes no pain no fever, no chills, no bleeding or bruising. REVIEW OF SYSTEMS: Respiratory: No cough, no dyspnea. Cardiovascular: No chest pain, no palpitations. Gastrointestinal: No vomiting, no abdominal pain. Musculoskeletal: No back pain. Allergies: Coded Allergies: Cephalosporins (Verified Allergy, Unknown, RASH, 04/16/18) cefixime (Verified Allergy, Unknown, RASH, 04/16/18) ceftazidime (Verified Allergy, Unknown, HIVES, 04/16/18) cephalexin (Verified Allergy, Unknown, RASH, 04/16/18) gluten (Verified Allergy, Unknown, 04/16/18) nystatin (Verified Allergy, Unknown, HIVES, 04/16/18) Gadolinium-Containing Contrast Medi (Verified Adverse Reaction, Unknown, 04/16/18) ESRD Home Meds Active Scripts Promethazine Hcl (PROMETHAZINE HCL) 25 Mg Tablet, 25 MG PO Q4H PRN for NAUSEA/VOMITING, #20 TAB Prov:KIMBERLI ELIZONDO 01/21/18 Reported Medications Calcium Carbonate (Tums Ultra Strength) 1,177 Mg Tab.chew, 2000 MG PO TIDCF 03/02/18 Olanzapine (ZYPREXA) 15 Mg Tablet, 15 MG PO QDAY take pre dialysis 03/02/18 Levetiracetam (LEVETIRACETAM) 500 Mg Tab.er.24h, 500 MG PO QDAY, TAB 01/21/18 Olanzapine (OLANZAPINE) 2.5 Mg Tablet, 2.5 MG PO mon,wed,fri06/23/17 Ranitidine Hcl (ZANTAC) 150 Mg Tablet, 150 MG PO BID, TAB 06/07/17 Fluoxetine Hcl (PROZAC) 20 Mg Capsule, 20 MG PO QDAY, CAPSULE 06/04/17 Guanfacine Hcl (INTUNIV) 2 Mg Tab.er.24h, 2 MG PO DAILY 05/15/17 Albuterol Sulfate (VENTOLIN HFA) 18 Gm Inh, 1-2 PUFF INH 3-4XD, INH 05/09/17 Diphenhydramine Hcl (BENADRYL) 25 Mg Capsule, 50 MG PO BID PRN for ANXIETY, CAPSULE 01/04/15 Folic Acid/Vitamin B Comp W-C (RENAL CAPS SOFTGEL) 1 Mg Capsule, 1 MG PO DAILY, CAPSULE 08/10/14 Melatonin (MELATONIN) 3 Mg Tablet.er, 6 MG PO QHS PRN for SLEEP TAKE 6 MG (2 TABS) AT BEDTIME NEEDED FOR SLEEP 11/08/13 Reviewed Nurses Notes: Yes Old Medical Records Reviewed: Yes Hx Smoking: No Smoking Status: Never Smoker Exposure to Second Hand Smoke?: No Hx Substance Use Disorder: No Hx Alcohol Use: No Constitutional Vital Sign - Last 24 Hours 04/16/18 04/16/18 04/16/18 04/16/18 20:32 20:33 20:43 20:58 Temp 98.0 Pulse 71 72 57 Resp 16 B/P (MAP) 129/100 (110) 129/100 Pulse Ox 94 95 94 O2 Delivery Room Air 04/16/18 04/16/18 21:13 21:28 Pulse 54 53 Pulse Ox 94 94 Physical Exam General appearance: Alert no distress. Respiratory: Chest is non tender, lungs are clear to auscultation. Cardiac: Regular rate and rhythm Extremities: Right arm with intact well-healed scars. There are 2 puncture wounds over the AV fistula. DIFFERENTIAL DIAGNOSIS: After history and physical exam differential diagnosis was considered for thrombosed AV fistula, decreased flow in AV fistula, Medical Decision Making ED Course/Re-evaluation ED Course Patient was admitted to an examination room. H&P was done. The differential diagnoses was considered. On clinical examination. Patient has no palpable thrill. An ultrasound was used to document there is flow in her fistula. Case was discussed with clay machine operator on-call at [facility] who advised patient follow-up with dialysis unit early tomorrow. If they're unable to access her graft. She will need to be sent down to [facility] for interventional radiology to open up her graft. Case was discussed with Hannah of the dialysis insulation power unit tender. She will be affecting the patient in the morning for evaluation of her AV graft. Decision to Disposition Date: Apr 16, 2018 Decision to Disposition Time: 21:02 Depart Departure Latest Vital Signs Vital Signs Date Time Temp Pulse Resp B/P (MAP) Pulse Ox O2 Delivery O2 Flow Rate FiO2 04/16/18 21:28 53 94 04/16/18 20:33 98.0 16 129/100 Room Air Impression: Primary Impression: A-V fistula Additional Impression: End-stage renal disease on hemodialysis Condition: Improved Disposition: HOME OR SELF-CARE Referrals: THOM HOLLINS MD (PCP) Patient Instructions: GENERAL ER DISCHARGE INSTRUCTIONS Additional Instructions: Follow-up with Hannah the dialysis insulation power unit tender for referral for interventional radiology at [facility] to open your AV graft in the morning Problem Qualifiers KIMBERLI ELIZONDO DO Apr 16, 2018 20:46
== END 2018-04-16 21:39 | disposition home or self-care (01) ==
LOC: ER 20:48
DX: N18.6 End stage renal disease (principal)
CPT/HCPCS: 99284

== ENCOUNTER → 2018-06-04 | Outpatient (CLI) | payer MEDICARE, MEDICAID ==
[2016-01-11 12:26] VITALS: BMI 21.8
[~2018-06-04] MED LIST changes: -HYDR-4309 PO; +HYDR-653 PO
[2018-06-04 12:58] LABS: PLATELET COUNT, AUTOMATED 217 K/uL (150-450)
== END ==
LOC: LAB 12:14
PROVIDERS: ATTEND Physician Assistant
DX: N92.6 Irregular menstruation, unspecified (principal)
CPT/HCPCS: 36415; 84146; 84436; 84443; 84481; 85025

== ENCOUNTER 2018-06-30 22:41 | Emergency (ER) | payer MEDICARE, MEDICAID ==
[2016-01-11 12:26] VITALS: Wt 54.9 kg
[~2018-06-30 22:41] MED LIST changes: +CALC0.5C5 PO
--- NOTE | 2018-06-30 22:44 | ER Report ---
History and Physical Time Seen By MD: 22:44 HPI/ROS CHIEF COMPLAINT: Disoriented HISTORY OF PRESENT ILLNESS: 22-year-old female with end-stage renal disease on hemodialysis, who underwent recent parathyroidectomy with known hypocalcemia. Patient woke up from sleeping, disoriented. Patient notes no headache, no visual changes, no speech changes. His due for dialysis in the morning. She denies fever, sore throat, rhinitis, cough, chest pain REVIEW OF SYSTEMS: Respiratory: No cough, no dyspnea. Cardiovascular: No chest pain, no palpitations. Gastrointestinal: No vomiting, no abdominal pain. Musculoskeletal: No back pain. Allergies: Coded Allergies: Cephalosporins (Verified Allergy, Unknown, RASH, 06/30/18) cefixime (Verified Allergy, Unknown, RASH, 06/30/18) ceftazidime (Verified Allergy, Unknown, HIVES, 06/30/18) cephalexin (Verified Allergy, Unknown, RASH, 06/30/18) gluten (Verified Allergy, Unknown, 06/30/18) nystatin (Verified Allergy, Unknown, HIVES, 06/30/18) Gadolinium-Containing Contrast Medi (Verified Adverse Reaction, Unknown, 06/30/18) ESRD Home Meds Active Scripts Promethazine Hcl (PROMETHAZINE HCL) 25 Mg Tablet, 25 MG PO Q4H PRN for NAUSEA/VOMITING, #20 TAB Prov:KIMBERLI ELIZONDO DO 01/21/18 Reported Medications Calcitriol (CALCITRIOL) 0.5 Mcg Capsule, 1 MCG PO BID, CAPSULE 06/29/18 Calcium Carbonate (Tums Ultra Strength) 1,177 Mg Tab.chew, 2000 MG PO QID 2000 3 times a day with meals 1999 at hs 03/02/18 Olanzapine (ZYPREXA) 15 Mg Tablet, 15 MG PO QDAY take pre dialysis 03/02/18 Levetiracetam (LEVETIRACETAM) 500 Mg Tab.er.24h, 500 MG PO QDAY, TAB 01/21/18 Olanzapine (OLANZAPINE) 2.5 Mg Tablet, 2.5 MG PO mon,wed,fri 06/23/17 Ranitidine Hcl (ZANTAC) 150 Mg Tablet, 150 MG PO BID, TAB 06/07/17 Fluoxetine Hcl (PROZAC) 20 Mg Capsule, 20 MG PO QDAY, CAPSULE 06/04/17 Guanfacine Hcl (INTUNIV) 2 Mg Tab.er.24h, 2 MG PO DAILY 05/15/17 Albuterol Sulfate (VENTOLIN HFA) 18 Gm Inh, 1-2 PUFF INH 3-4XD, INH 05/09/17 Diphenhydramine Hcl (BENADRYL) 25 Mg Capsule, 50 MG PO BID PRN for ANXIETY, CAPSULE 01/04/15 Folic Acid/Vitamin B Comp W-C (RENAL CAPS SOFTGEL) 1 Mg Capsule, 1 MG PO DAILY, CAPSULE 08/10/14 Melatonin (MELATONIN) 3 Mg Tablet.er, 6 MG PO QHS PRN for SLEEP TAKE 6 MG (2 TABS) AT BEDTIME NEEDED FOR SLEEP 11/08/13 Past Medical/Surgical History Past medical history for end-stage renal disease on hemodialysis Wednesdays and Fridays. She is status post multiple failed renal transplants. History of asthma. History of encephalitis. Reviewed Nurses Notes: Yes Old Medical Records Reviewed: Yes Hx Smoking: No Smoking Status: Never Smoker Exposure to Second Hand Smoke?: No Hx Substance Use Disorder: No Hx Alcohol Use: No Constitutional Vital Sign - Last 24 Hours 06/30/18 06/30/18 06/30/18 06/30/18 22:44 22:56 23:11 23:26 Temp 98.2 Pulse 84 89 90 92 Resp 24 B/P (MAP) 140/92 Pulse Ox 95 94 92 94 O2 Delivery Room Air 06/30/18 06/30/18 23:30 23:35 Pulse 88 B/P (MAP) 108/80 (89) Pulse Ox 91 Physical Exam Vital signs stable, afebrile, pulse ox normal General Appearance: The patient is alert, has no immediate need for airway protection and no current signs of toxicity. Red and oriented 3, HEENT: Pupils equal and round no injection. TMs normal, oropharynx without redness or exudate, mucous. Membranes are moist Respiratory: Chest is non tender, lungs are clear to auscultation. Cardiac: regular rate and rhythm Gastrointestinal: Abdomen is soft and non tender, no masses, bowel sounds normal. Musculoskeletal: Neck: Neck is supple and non tender. Extremities have full range of motion and are non tender. AV fistula in her right forearm with puncture wound sites without signs of infection Skin: No rashes or lesions. DIFFERENTIAL DIAGNOSIS: After history and physical exam differential diagnosis was considered foraltered mental status including but not limited to hypoglycemia, infectious process, electrolyte abnormality, head injury and intoxicants. Medical Decision Making Data Points Result Diagram: 06/30/185 06/30/182314 Laboratory Hematology Test 06/30/18 23:15 Red Blood Count 2.49 M/uL (4.17-5.56) Mean Corpuscular Volume 92.1 fL (80.0-96.0) Mean Corpuscular Hemoglobin 30.2 pg (26.0-33.0) Mean Corpuscular Hemoglobin Concent 32.8 g/dL (32.0-36.0) Red Cell Distribution Width 15.0 % (11.5-14.5) Mean Platelet Volume 7.5 fL (7.2-11.1) Neutrophils (%) (Auto) 37.6 % (39.4-72.5) Lymphocytes (%) (Auto) 45.6 % (17.6-49.6) Monocytes (%) (Auto) 10.2 % (4.1-12.4) Eosinophils (%) (Auto) 4.7 % (0.4-6.7) Basophils (%) (Auto) 1.9 % (0.3-1.4) Nucleated RBC Relative Count (auto) 0.2 /100WBC Neutrophils # (Auto) 1.2 K/uL (2.0-7.4) Lymphocytes # (Auto) 1.4 K/uL (1.3-3.6) Monocytes # (Auto) 0.3 K/uL (0.3-1.0) Eosinophils # (Auto) 0.1 K/uL (0.0-0.5) Basophils # (Auto) 0.1 K/uL (0.0-0.1) Nucleated RBC Absolute Count (auto) 0.01 K/uL Sodium Level 138 mmol/L (137-145) Potassium Level 5.0 mmol/L (3.5-5.0) Chloride Level 92 mmol/L (98-107) Carbon Dioxide Level 30 mmol/L (22-31) Blood Urea Nitrogen 41 mg/dl (7-18) Creatinine 6.30 mg/dl (0.52-1.04) Glomerular Filtration Rate Calc 8.5 Random Glucose 100 mg/dl (75-110) Calcium Level 5.6 mg/dl (8.4-10.2) Magnesium Level 2.2 mg/dl (1.7-2.2) Total Bilirubin 0.2 mg/dl (0.2-1.3) Aspartate Amino Transf (AST/SGOT) 31 U/L (0-35) Alanine Aminotransferase (ALT/SGPT) 51 U/L (0-56) Alkaline Phosphatase 401 U/L (0-126) Total Protein 6.5 g/dl (6.3-8.2) Albumin 3.7 g/dl (3.5-5.0) Chemistry Test 06/30/18 23:15 White Blood Count 3.1 k/uL (4.5-11.0) Red Blood Count 2.49 M/uL (4.17-5.56) Hemoglobin 7.5 g/dL (12.0-16.0) Hematocrit 22.9 % (34.0-47.0) Mean Corpuscular Volume 92.1 fL (80.0-96.0) Mean Corpuscular Hemoglobin 30.2 pg (26.0-33.0) Mean Corpuscular Hemoglobin Concent 32.8 g/dL (32.0-36.0) Red Cell Distribution Width 15.0 % (11.5-14.5) Platelet Count 215 K/uL (150-450) Mean Platelet Volume 7.5 fL (7.2-11.1) Neutrophils (%) (Auto) 37.6 % (39.4-72.5) Lymphocytes (%) (Auto) 45.6 % (17.6-49.6) Monocytes (%) (Auto) 10.2 % (4.1-12.4) Eosinophils (%) (Auto) 4.7 % (0.4-6.7) Basophils (%) (Auto) 1.9 % (0.3-1.4) Nucleated RBC Relative Count (auto) 0.2 /100WBC Neutrophils # (Auto) 1.2 K/uL (2.0-7.4) Lymphocytes # (Auto) 1.4 K/uL (1.3-3.6) Monocytes # (Auto) 0.3 K/uL (0.3-1.0) Eosinophils # (Auto) 0.1 K/uL (0.0-0.5) Basophils # (Auto) 0.1 K/uL (0.0-0.1) Nucleated RBC Absolute Count (auto) 0.01 K/uL Glomerular Filtration Rate Calc 8.5 Calcium Level 5.6 mg/dl (8.4-10.2) Magnesium Level 2.2 mg/dl (1.7-2.2) Total Bilirubin 0.2 mg/dl (0.2-1.3) Aspartate Amino Transf (AST/SGOT) 31 U/L (0-35) Alanine Aminotransferase (ALT/SGPT) 51 U/L (0-56) Alkaline Phosphatase 401 U/L (0-126) Total Protein 6.5 g/dl (6.3-8.2) Albumin 3.7 g/dl (3.5-5.0) ED Course/Re-evaluation ED Course Patient was admitted to an examination room. H&P was done. The differential diagnosis was considered. On clinical examination. Patient has a nonfocal neurologic examination. She's alert and oriented 3. Diagnostic laboratory studies are sent off. She is hypocalcemic. Patient also is fairly anemic. My suspicion is that she fell asleep into deep REM sleep and was woke up by her family and was disoriented. He does not think there is any pathologic process going on. Did discuss the option of a CAT scan since her neurologic examination is normal. I do not think it'll be of any benefit., Advised to follow-up for planned dialysis tomorrow. Decision to Disposition Date: Jun 30, 2018 Decision to Disposition Time: 23:44 Depart Departure Latest Vital Signs Vital Signs Date Time Temp Pulse Resp B/P (MAP) Pulse Ox O2 Delivery O2 Flow Rate FiO2 06/30/18 23:35 88 91 06/30/18 23:30 108/80 (89) 06/30/18 22:44 98.2 24 Room Air Impression: Primary Impression: Disoriented Additional Impressions: Anemia Hypocalcemia Condition: Improved Disposition: HOME OR SELF-CARE Referrals: THOM HOLLINS MD (PCP) Patient Instructions: Altered Mental Status (ED) Additional Instructions: Follow-up for dialysis as planned in the morning Problem Qualifiers Additional Impressions: Anemia Anemia type: due to chronic kidney disease Chronic kidney disease stage: on chronic dialysis Qualified Codes: N18.6 - End stage renal disease; D63.1 - Anemia in chronic kidney disease; Z99.2 - Dependence on renal dialysis KIMBERLI ELIZONDO DO Jun 30, 2018 22:44
[2018-06-30 23:22] LABS: PLATELET COUNT, AUTOMATED 215 K/uL (150-450)
[2018-06-30 23:30] VITALS: BP 108/80
== END 2018-06-30 23:48 | disposition home or self-care (01) ==
LOC: ER 22:57
DX: R41.0 Disorientation, unspecified (principal); N18.6 End stage renal disease; D63.1 Anemia in chronic kidney disease; Z99.2 Dependence on renal dialysis; E83.51 Hypocalcemia
CPT/HCPCS: 36415; 82040; 82247; 82310; 82374; 82435; 82565; 82947; 83735; 84075; 84132; 84155; 84295; 84450; 84460; 84520; 85025; 99282

== ENCOUNTER → 2018-07-22 08:30 | Outpatient (RCR) | payer MEDICARE, MEDICAID ==
[2016-01-11 12:26] VITALS: BMI 21.8
[2017-07-21] MEDS: LIDOCAINE/SOD BICARB 8.4% SYR ID PRN (15:05)
[2017-07-21] MEDS: HEPARIN SOD (PORCINE) LOAD IVP PRN (15:05)
[2017-07-21] MEDS: HEPARIN (PORCINE) 1000 UNIT/ML (DIALYSIS) IVP PRN (15:06)
[2017-07-23] MEDS: HEPARIN (PORCINE) 1000 UNIT/ML (DIALYSIS) IVP PRN (15:27)
[2017-07-23] MEDS: LIDOCAINE/SOD BICARB 8.4% SYR ID PRN (15:27)
[2017-07-23] MEDS: HEPARIN SOD (PORCINE) LOAD IVP PRN (15:27)
[2017-08-08] MEDS: HEPARIN (PORCINE) 1000 UNIT/ML (DIALYSIS) IVP PRN (14:28)
[2017-08-08] MEDS: HEPARIN SOD (PORCINE) LOAD IVP PRN (14:28)
[2017-08-08 14:51] LABS: PLATELET COUNT, AUTOMATED 255 K/uL (150-450)
[2017-08-08] MEDS: DARBEPOETIN ESRD 100 MCG/0.5ML SYR IVP PRN (15:15)
[2017-08-11] MEDS: HEPARIN (PORCINE) 1000 UNIT/ML (DIALYSIS) IVP PRN (14:39)
[2017-08-11] MEDS: HEPARIN SOD (PORCINE) LOAD IVP PRN (14:40)
[2017-08-13] MEDS: HEPARIN (PORCINE) 1000 UNIT/ML (DIALYSIS) IVP PRN (15:20)
[2017-08-13] MEDS: HEPARIN SOD (PORCINE) LOAD IVP PRN (15:20)
[2017-08-15] MEDS: HEPARIN (PORCINE) 1000 UNIT/ML (DIALYSIS) IVP PRN (14:51)
[2017-08-15] MEDS: HEPARIN SOD (PORCINE) LOAD IVP PRN (14:52)
[2017-08-15] MEDS: DARBEPOETIN ESRD 100 MCG/0.5ML SYR IVP PRN (15:03)
[2017-08-18] MEDS: HEPARIN (PORCINE) 1000 UNIT/ML (DIALYSIS) IVP PRN (14:57)
[2017-08-18] MEDS: HEPARIN SOD (PORCINE) LOAD IVP PRN (14:57)
[2017-08-18] MEDS: [UNRECOGNIZED DRUG - OTHER] IVP PRN (17:32)
[2017-08-20] MEDS: HEPARIN (PORCINE) 1000 UNIT/ML (DIALYSIS) IVP PRN (14:27)
[2017-08-20] MEDS: HEPARIN SOD (PORCINE) LOAD IVP PRN (14:28)
[2017-08-20] MEDS: LIDOCAINE/SOD BICARB 8.4% SYR SC PRN (14:37)
[2017-08-20] MEDS: [UNRECOGNIZED DRUG - OTHER] IVP PRN (17:45)
[2017-08-22] MEDS: HEPARIN SOD (PORCINE) LOAD IVP PRN (13:41)
[2017-08-22] MEDS: LIDOCAINE/SOD BICARB 8.4% SYR SC PRN (13:41)
[2017-08-22] MEDS: HEPARIN (PORCINE) 1000 UNIT/ML (DIALYSIS) IVP PRN (13:41)
[2017-08-22] MEDS: DIALYSIS ACETAMINOPHEN 325 MG PO PRN (14:06)
[2017-08-22] MEDS: [UNRECOGNIZED DRUG - OTHER] IVP PRN (16:59)
[2017-08-25] MEDS: LIDOCAINE/SOD BICARB 8.4% SYR SC PRN (13:37)
[2017-08-25] MEDS: HEPARIN SOD (PORCINE) LOAD IVP PRN (13:37)
[2017-08-25] MEDS: HEPARIN (PORCINE) 1000 UNIT/ML (DIALYSIS) IVP PRN (13:37)
[2017-08-25] MEDS: [UNRECOGNIZED DRUG - OTHER] IVP PRN (16:57)
[2017-08-27] MEDS: LIDOCAINE/SOD BICARB 8.4% SYR SC PRN (13:51)
[2017-08-27] MEDS: HEPARIN SOD (PORCINE) LOAD IVP PRN (13:51)
[2017-08-27] MEDS: HEPARIN (PORCINE) 1000 UNIT/ML (DIALYSIS) IVP PRN (13:51)
[2017-08-27] MEDS: [UNRECOGNIZED DRUG - OTHER] IVP PRN (16:50)
[2017-08-29] MEDS: HEPARIN SOD (PORCINE) LOAD IVP PRN (12:06)
[2017-08-29] MEDS: HEPARIN (PORCINE) 1000 UNIT/ML (DIALYSIS) IVP PRN (12:06)
[2017-08-29] MEDS: LIDOCAINE/SOD BICARB 8.4% SYR SC PRN (12:06)
[2017-08-29] MEDS: DARBEPOETIN ESRD 25 MCG/ML IVP PRN (12:33)
[2017-08-29] MEDS: [UNRECOGNIZED DRUG - OTHER] IVP PRN (15:19)
[2017-09-01] MEDS: HEPARIN (PORCINE) 1000 UNIT/ML (DIALYSIS) IVP PRN (13:44)
[2017-09-01] MEDS: HEPARIN SOD (PORCINE) LOAD IVP PRN (13:44)
[2017-09-01] MEDS: [UNRECOGNIZED DRUG - OTHER] IVP PRN (16:54)
[2017-09-03] MEDS: LIDOCAINE/SOD BICARB 8.4% SYR SC PRN (13:36)
[2017-09-03] MEDS: HEPARIN (PORCINE) 1000 UNIT/ML (DIALYSIS) IVP PRN (13:36)
[2017-09-03] MEDS: HEPARIN SOD (PORCINE) LOAD IVP PRN (13:36)
[2017-09-03] MEDS: [UNRECOGNIZED DRUG - OTHER] IVP PRN (17:03)
[2017-09-05] MEDS: LIDOCAINE/SOD BICARB 8.4% SYR SC PRN (13:52)
[2017-09-05] MEDS: HEPARIN (PORCINE) 1000 UNIT/ML (DIALYSIS) IVP PRN (13:52)
[2017-09-05] MEDS: HEPARIN SOD (PORCINE) LOAD IVP PRN (13:52)
[2017-09-05] MEDS: DARBEPOETIN ESRD 25 MCG/ML IVP PRN (14:07)
[2017-09-05] MEDS: [UNRECOGNIZED DRUG - OTHER] IVP PRN (17:06)
[2017-09-08] MEDS: LIDOCAINE/SOD BICARB 8.4% SYR SC PRN (13:23)
[2017-09-08] MEDS: HEPARIN SOD (PORCINE) LOAD IVP PRN (13:23)
[2017-09-08] MEDS: HEPARIN (PORCINE) 1000 UNIT/ML (DIALYSIS) IVP PRN (13:23)
[2017-09-08] MEDS: [UNRECOGNIZED DRUG - OTHER] IVP PRN (16:43)
[2017-09-10] MEDS: LIDOCAINE/SOD BICARB 8.4% SYR SC PRN (13:31)
[2017-09-10] MEDS: HEPARIN (PORCINE) 1000 UNIT/ML (DIALYSIS) IVP PRN (13:32)
[2017-09-10] MEDS: HEPARIN SOD (PORCINE) LOAD IVP PRN (13:32)
[2017-09-10 14:23] LABS: PLATELET COUNT, AUTOMATED 242 K/uL (150-450)
[2017-09-10] MEDS: [UNRECOGNIZED DRUG - OTHER] IVP PRN (16:54)
[2017-09-12] MEDS: LIDOCAINE/SOD BICARB 8.4% SYR SC PRN (13:37)
[2017-09-12] MEDS: HEPARIN (PORCINE) 1000 UNIT/ML (DIALYSIS) IVP PRN (13:37)
[2017-09-12] MEDS: HEPARIN SOD (PORCINE) LOAD IVP PRN (13:38)
[2017-09-12] MEDS: DARBEPOETIN ESRD 25 MCG/ML IVP PRN (13:59)
[2017-09-12] MEDS: [UNRECOGNIZED DRUG - OTHER] IVP PRN (16:53)
[2017-09-15] MEDS: LIDOCAINE/SOD BICARB 8.4% SYR SC PRN (13:55)
[2017-09-15] MEDS: HEPARIN SOD (PORCINE) LOAD IVP PRN (13:56)
[2017-09-15] MEDS: HEPARIN (PORCINE) 1000 UNIT/ML (DIALYSIS) IVP PRN (13:56)
[2017-09-15] MEDS: [UNRECOGNIZED DRUG - OTHER] IVP PRN (17:26)
[2017-09-17] MEDS: HEPARIN (PORCINE) 1000 UNIT/ML (DIALYSIS) IVP PRN (13:42)
[2017-09-17] MEDS: HEPARIN SOD (PORCINE) LOAD IVP PRN (13:42)
[2017-09-17] MEDS: LIDOCAINE/SOD BICARB 8.4% SYR SC PRN (13:43)
[2017-09-17] MEDS: [UNRECOGNIZED DRUG - OTHER] IVP PRN (17:01)
[2017-09-19] MEDS: LIDOCAINE/SOD BICARB 8.4% SYR SC PRN (13:41)
[2017-09-19] MEDS: HEPARIN (PORCINE) 1000 UNIT/ML (DIALYSIS) IVP PRN (13:41)
[2017-09-19] MEDS: HEPARIN SOD (PORCINE) LOAD IVP PRN (13:41)
[2017-09-19] MEDS: DARBEPOETIN ESRD 25 MCG/ML IVP PRN (14:41)
[2017-09-19] MEDS: [UNRECOGNIZED DRUG - OTHER] IVP PRN (16:56)
[2017-09-22] MEDS: LIDOCAINE/SOD BICARB 8.4% SYR SC PRN (13:42)
[2017-09-22] MEDS: HEPARIN SOD (PORCINE) LOAD IVP PRN (13:42)
[2017-09-22] MEDS: HEPARIN (PORCINE) 1000 UNIT/ML (DIALYSIS) IVP PRN (13:42)
[2017-09-22] MEDS: [UNRECOGNIZED DRUG - OTHER] IVP PRN (16:56)
[2017-09-24] MEDS: HEPARIN (PORCINE) 1000 UNIT/ML (DIALYSIS) IVP PRN (11:06)
[2017-09-24] MEDS: HEPARIN SOD (PORCINE) LOAD IVP PRN (11:06)
[2017-09-24] MEDS: LIDOCAINE/SOD BICARB 8.4% SYR SC PRN (11:06)
[2017-09-24] MEDS: [UNRECOGNIZED DRUG - OTHER] IVP PRN (14:29)
[2017-09-26] MEDS: HEPARIN SOD (PORCINE) LOAD IVP PRN (06:13)
[2017-09-26] MEDS: LIDOCAINE/SOD BICARB 8.4% SYR SC PRN (06:13)
[2017-09-26] MEDS: HEPARIN (PORCINE) 1000 UNIT/ML (DIALYSIS) IVP PRN (06:13)
[2017-09-26] MEDS: [UNRECOGNIZED DRUG - OTHER] IVP PRN (09:23)
[2017-09-29] MEDS: HEPARIN (PORCINE) 1000 UNIT/ML (DIALYSIS) IVP PRN (05:55)
[2017-09-29] MEDS: LIDOCAINE/SOD BICARB 8.4% SYR SC PRN (05:56)
[2017-09-29] MEDS: HEPARIN SOD (PORCINE) LOAD IVP PRN (05:56)
[2017-09-29] MEDS: DARBEPOETIN ESRD 25 MCG/ML IVP PRN (06:25)
[2017-09-29] MEDS: [UNRECOGNIZED DRUG - OTHER] IVP PRN (09:13)
[2017-10-01] MEDS: HEPARIN (PORCINE) 1000 UNIT/ML (DIALYSIS) IVP PRN (05:51)
[2017-10-01] MEDS: LIDOCAINE/SOD BICARB 8.4% SYR SC PRN (05:51)
[2017-10-01] MEDS: HEPARIN SOD (PORCINE) LOAD IVP PRN (05:51)
[2017-10-01] MEDS: [UNRECOGNIZED DRUG - OTHER] IVP PRN (09:06)
[2017-10-03] MEDS: LIDOCAINE/SOD BICARB 8.4% SYR SC PRN (12:19)
[2017-10-03] MEDS: HEPARIN SOD (PORCINE) LOAD IVP PRN (12:20)
[2017-10-03] MEDS: HEPARIN (PORCINE) 1000 UNIT/ML (DIALYSIS) IVP PRN (12:20)
[2017-10-03] MEDS: DARBEPOETIN ESRD 25 MCG/ML IVP PRN (12:52)
[2017-10-03] MEDS: [UNRECOGNIZED DRUG - OTHER] IVP PRN (15:38)
[2017-10-06] MEDS: HEPARIN SOD (PORCINE) LOAD IVP PRN (12:20)
[2017-10-06] MEDS: LIDOCAINE/SOD BICARB 8.4% SYR SC PRN (12:20)
[2017-10-06] MEDS: HEPARIN (PORCINE) 1000 UNIT/ML (DIALYSIS) IVP PRN (12:20)
[2017-10-06] MEDS: [UNRECOGNIZED DRUG - OTHER] IVP PRN (15:32)
[2017-10-08] MEDS: HEPARIN (PORCINE) 1000 UNIT/ML (DIALYSIS) IVP PRN (12:22)
[2017-10-08] MEDS: HEPARIN SOD (PORCINE) LOAD IVP PRN (12:23)
[2017-10-08] MEDS: LIDOCAINE/SOD BICARB 8.4% SYR SC PRN (12:47)
[2017-10-08 13:20] LABS: PLATELET COUNT, AUTOMATED 234 K/uL (150-450)
[2017-10-08] MEDS: [UNRECOGNIZED DRUG - OTHER] IVP PRN (15:40)
[2017-10-10] MEDS: HEPARIN (PORCINE) 1000 UNIT/ML (DIALYSIS) IVP PRN (12:19)
[2017-10-10] MEDS: HEPARIN SOD (PORCINE) LOAD IVP PRN (12:19)
[2017-10-10] MEDS: LIDOCAINE/SOD BICARB 8.4% SYR SC PRN (12:19)
[2017-10-10] MEDS: DARBEPOETIN ESRD 25 MCG/ML IVP PRN (15:11)
[2017-10-10] MEDS: [UNRECOGNIZED DRUG - OTHER] IVP PRN (15:40)
[2017-10-13] MEDS: LIDOCAINE/SOD BICARB 8.4% SYR SC PRN (12:09)
[2017-10-13] MEDS: HEPARIN SOD (PORCINE) LOAD IVP PRN (12:10)
[2017-10-13] MEDS: HEPARIN (PORCINE) 1000 UNIT/ML (DIALYSIS) IVP PRN (12:10)
[2017-10-13] MEDS: [UNRECOGNIZED DRUG - OTHER] IVP PRN (15:22)
[2017-10-15] MEDS: HEPARIN (PORCINE) 1000 UNIT/ML (DIALYSIS) IVP PRN (12:26)
[2017-10-15] MEDS: LIDOCAINE/SOD BICARB 8.4% SYR SC PRN (12:26)
[2017-10-15] MEDS: HEPARIN SOD (PORCINE) LOAD IVP PRN (12:27)
[2017-10-15] MEDS: CINACALCET HCL 90 MG PO PRN (14:28)
[2017-10-17] MEDS: HEPARIN SOD (PORCINE) LOAD IVP PRN (12:27)
[2017-10-17] MEDS: HEPARIN (PORCINE) 1000 UNIT/ML (DIALYSIS) IVP PRN (12:27)
[2017-10-17] MEDS: LIDOCAINE/SOD BICARB 8.4% SYR SC PRN (12:28)
[2017-10-17] MEDS: CINACALCET HCL 90 MG PO PRN (12:52)
[2017-10-17] MEDS: DARBEPOETIN ESRD 25 MCG/ML IVP PRN (12:52)
[2017-10-20] MEDS: LIDOCAINE/SOD BICARB 8.4% SYR SC PRN (12:14)
[2017-10-20] MEDS: HEPARIN (PORCINE) 1000 UNIT/ML (DIALYSIS) IVP PRN (12:14)
[2017-10-20] MEDS: HEPARIN SOD (PORCINE) LOAD IVP PRN (12:15)
[2017-10-20] MEDS: CINACALCET HCL 90 MG PO PRN (12:26)
[2017-10-22] MEDS: HEPARIN SOD (PORCINE) LOAD IVP PRN (12:52)
[2017-10-22] MEDS: LIDOCAINE/SOD BICARB 8.4% SYR SC PRN (12:52)
[2017-10-22] MEDS: HEPARIN (PORCINE) 1000 UNIT/ML (DIALYSIS) IVP PRN (12:52)
[2017-10-22] MEDS: CINACALCET HCL 90 MG PO PRN (13:13)
[2017-10-24] MEDS: HEPARIN (PORCINE) 1000 UNIT/ML (DIALYSIS) IVP PRN (12:16)
[2017-10-24] MEDS: HEPARIN SOD (PORCINE) LOAD IVP PRN (12:16)
[2017-10-24] MEDS: LIDOCAINE/SOD BICARB 8.4% SYR SC PRN (12:16)
[2017-10-24] MEDS: DARBEPOETIN ESRD 25 MCG/ML IVP PRN (13:07)
[2017-10-24] MEDS: CINACALCET HCL 90 MG PO PRN (13:07)
[2017-10-27] MEDS: HEPARIN (PORCINE) 1000 UNIT/ML (DIALYSIS) IVP PRN (12:14)
[2017-10-27] MEDS: LIDOCAINE/SOD BICARB 8.4% SYR SC PRN (12:14)
[2017-10-27] MEDS: HEPARIN SOD (PORCINE) LOAD IVP PRN (12:14)
[2017-10-27] MEDS: CINACALCET HCL 90 MG PO PRN (12:35)
[2017-10-29] MEDS: HEPARIN SOD (PORCINE) LOAD IVP PRN (12:26)
[2017-10-29] MEDS: LIDOCAINE/SOD BICARB 8.4% SYR SC PRN (12:26)
[2017-10-29] MEDS: HEPARIN (PORCINE) 1000 UNIT/ML (DIALYSIS) IVP PRN (12:26)
[2017-10-29] MEDS: CINACALCET HCL 90 MG PO PRN (12:49)
[2017-10-31] MEDS: HEPARIN (PORCINE) 1000 UNIT/ML (DIALYSIS) IVP PRN (13:41)
[2017-10-31] MEDS: HEPARIN SOD (PORCINE) LOAD IVP PRN (13:41)
[2017-10-31] MEDS: LIDOCAINE/SOD BICARB 8.4% SYR SC PRN (13:41)
[2017-10-31] MEDS: CINACALCET HCL 90 MG PO PRN (13:58)
[2017-10-31] MEDS: DARBEPOETIN ESRD 25 MCG/ML IVP PRN (13:58)
[2017-11-03] MEDS: HEPARIN SOD (PORCINE) LOAD IVP PRN (13:48)
[2017-11-03] MEDS: HEPARIN (PORCINE) 1000 UNIT/ML (DIALYSIS) IVP PRN (13:48)
[2017-11-03] MEDS: LIDOCAINE/SOD BICARB 8.4% SYR SC PRN (13:51)
[2017-11-03] MEDS: CINACALCET HCL 90 MG PO PRN (14:02)
[2017-11-05] MEDS: HEPARIN SOD (PORCINE) LOAD IVP PRN (14:03)
[2017-11-05] MEDS: LIDOCAINE/SOD BICARB 8.4% SYR SC PRN (14:03)
[2017-11-05] MEDS: HEPARIN (PORCINE) 1000 UNIT/ML (DIALYSIS) IVP PRN (14:03)
[2017-11-05] MEDS: CINACALCET HCL 90 MG PO PRN (14:18)
[2017-11-05 14:35] LABS: PLATELET COUNT, AUTOMATED 246 K/uL (150-450)
[2017-11-07] MEDS: HEPARIN SOD (PORCINE) LOAD IVP PRN (13:43)
[2017-11-07] MEDS: LIDOCAINE/SOD BICARB 8.4% SYR SC PRN (13:44)
[2017-11-07] MEDS: HEPARIN (PORCINE) 1000 UNIT/ML (DIALYSIS) IVP PRN (13:44)
[2017-11-07] MEDS: DARBEPOETIN ESRD 25 MCG/ML IVP PRN (13:44)
[2017-11-07] MEDS: CINACALCET HCL 90 MG PO PRN (13:44)
[2017-11-10] MEDS: LIDOCAINE/SOD BICARB 8.4% SYR SC PRN (13:39)
[2017-11-10] MEDS: HEPARIN (PORCINE) 1000 UNIT/ML (DIALYSIS) IVP PRN (13:40)
[2017-11-10] MEDS: HEPARIN SOD (PORCINE) LOAD IVP PRN (13:40)
[2017-11-10] MEDS: CINACALCET HCL 90 MG PO PRN (13:42)
[2017-11-12] MEDS: HEPARIN (PORCINE) 1000 UNIT/ML (DIALYSIS) IVP PRN (13:52)
[2017-11-12] MEDS: HEPARIN SOD (PORCINE) LOAD IVP PRN (13:53)
[2017-11-12] MEDS: LIDOCAINE/SOD BICARB 8.4% SYR SC PRN (13:53)
[2017-11-12] MEDS: CINACALCET HCL 90 MG PO PRN (15:31)
[2017-11-14] MEDS: HEPARIN SOD (PORCINE) LOAD IVP PRN (14:03)
[2017-11-14] MEDS: HEPARIN (PORCINE) 1000 UNIT/ML (DIALYSIS) IVP PRN (14:04)
[2017-11-14] MEDS: DARBEPOETIN ESRD 25 MCG/ML IVP PRN (14:51)
[2017-11-14] MEDS: CINACALCET HCL 90 MG PO PRN (17:29)
[2017-11-17] MEDS: HEPARIN (PORCINE) 1000 UNIT/ML (DIALYSIS) IVP PRN (14:04)
[2017-11-17] MEDS: HEPARIN SOD (PORCINE) LOAD IVP PRN (14:04)
[2017-11-17] MEDS: LIDOCAINE/SOD BICARB 8.4% SYR SC PRN (14:05)
[2017-11-17] MEDS: CINACALCET HCL 90 MG PO PRN (17:38)
[2017-11-19] MEDS: HEPARIN SOD (PORCINE) LOAD IVP PRN (14:34)
[2017-11-19] MEDS: HEPARIN (PORCINE) 1000 UNIT/ML (DIALYSIS) IVP PRN (14:34)
[2017-11-19] MEDS: LIDOCAINE/SOD BICARB 8.4% SYR SC PRN (14:35)
[2017-11-19] MEDS: CINACALCET HCL 90 MG PO PRN (17:09)
[2017-11-21] MEDS: HEPARIN (PORCINE) 1000 UNIT/ML (DIALYSIS) IVP PRN (13:53)
[2017-11-21] MEDS: HEPARIN SOD (PORCINE) LOAD IVP PRN (13:54)
[2017-11-21] MEDS: LIDOCAINE/SOD BICARB 8.4% SYR SC PRN (13:54)
[2017-11-21] MEDS: DARBEPOETIN ESRD 25 MCG/ML IVP PRN (14:28)
[2017-11-21] MEDS: CINACALCET HCL 90 MG PO PRN (17:11)
[2017-11-24] MEDS: LIDOCAINE/SOD BICARB 8.4% SYR SC PRN (13:59)
[2017-11-24] MEDS: HEPARIN SOD (PORCINE) LOAD IVP PRN (13:59)
[2017-11-24] MEDS: HEPARIN (PORCINE) 1000 UNIT/ML (DIALYSIS) IVP PRN (14:00)
[2017-11-24] MEDS: CINACALCET HCL 90 MG PO PRN (17:31)
[2017-11-26] MEDS: LIDOCAINE/SOD BICARB 8.4% SYR SC PRN (13:47)
[2017-11-26] MEDS: HEPARIN (PORCINE) 1000 UNIT/ML (DIALYSIS) IVP PRN (13:47)
[2017-11-26] MEDS: HEPARIN SOD (PORCINE) LOAD IVP PRN (13:47)
[2017-11-26 14:39] LABS: PLATELET COUNT, AUTOMATED 185 K/uL (150-450)
[2017-11-26] MEDS: CINACALCET HCL 90 MG PO PRN (17:18)
[2017-11-28] MEDS: LIDOCAINE/SOD BICARB 8.4% SYR SC PRN (12:23)
[2017-11-28] MEDS: HEPARIN (PORCINE) 1000 UNIT/ML (DIALYSIS) IVP PRN (12:23)
[2017-11-28] MEDS: HEPARIN SOD (PORCINE) LOAD IVP PRN (12:23)
[2017-11-28] MEDS: CINACALCET HCL 90 MG PO PRN (15:36)
[2017-11-28] MEDS: DARBEPOETIN ESRD 25 MCG/ML IVP PRN (15:37)
[2017-12-01] MEDS: HEPARIN (PORCINE) 1000 UNIT/ML (DIALYSIS) IVP PRN (12:11)
[2017-12-01] MEDS: LIDOCAINE/SOD BICARB 8.4% SYR SC PRN (12:11)
[2017-12-01] MEDS: HEPARIN SOD (PORCINE) LOAD IVP PRN (12:11)
[2017-12-01] MEDS: CINACALCET HCL 90 MG PO PRN (15:32)
[2017-12-03] MEDS: HEPARIN SOD (PORCINE) LOAD IVP PRN (12:14)
[2017-12-03] MEDS: HEPARIN (PORCINE) 1000 UNIT/ML (DIALYSIS) IVP PRN (12:14)
[2017-12-03] MEDS: LIDOCAINE/SOD BICARB 8.4% SYR SC PRN (12:15)
[2017-12-03] MEDS: CINACALCET HCL 90 MG PO PRN (15:53)
[2017-12-05] MEDS: LIDOCAINE/SOD BICARB 8.4% SYR SC PRN (12:20)
[2017-12-05] MEDS: HEPARIN SOD (PORCINE) LOAD IVP PRN (12:21)
[2017-12-05] MEDS: HEPARIN (PORCINE) 1000 UNIT/ML (DIALYSIS) IVP PRN (12:21)
[2017-12-05] MEDS: DARBEPOETIN ESRD 40MCG/ML IVP PRN (13:13)
[2017-12-08] MEDS: HEPARIN SOD (PORCINE) LOAD IVP PRN (13:55)
[2017-12-08] MEDS: HEPARIN (PORCINE) 1000 UNIT/ML (DIALYSIS) IVP PRN (13:55)
[2017-12-08] MEDS: LIDOCAINE/SOD BICARB 8.4% SYR SC PRN (13:55)
[2017-12-10] MEDS: HEPARIN SOD (PORCINE) LOAD IVP PRN (14:11)
[2017-12-10] MEDS: HEPARIN (PORCINE) 1000 UNIT/ML (DIALYSIS) IVP PRN (14:11)
[2017-12-10] MEDS: LIDOCAINE/SOD BICARB 8.4% SYR SC PRN (14:31)
[2017-12-10] MEDS: CINACALCET HCL PO PRN (17:33)
[2017-12-12] MEDS: LIDOCAINE/SOD BICARB 8.4% SYR SC PRN (14:10)
[2017-12-12] MEDS: HEPARIN (PORCINE) 1000 UNIT/ML (DIALYSIS) IVP PRN (14:11)
[2017-12-12] MEDS: HEPARIN SOD (PORCINE) LOAD IVP PRN (14:11)
[2017-12-12] MEDS: DARBEPOETIN ESRD 40MCG/ML IVP PRN (15:31)
[2017-12-15] MEDS: HEPARIN SOD (PORCINE) LOAD IVP PRN (15:03)
[2017-12-15] MEDS: LIDOCAINE/SOD BICARB 8.4% SYR SC PRN (15:03)
[2017-12-15] MEDS: HEPARIN (PORCINE) 1000 UNIT/ML (DIALYSIS) IVP PRN (15:03)
[2017-12-15] MEDS: CINACALCET HCL PO PRN (19:21)
[2017-12-17] MEDS: HEPARIN SOD (PORCINE) LOAD IVP PRN (11:57)
[2017-12-17] MEDS: HEPARIN (PORCINE) 1000 UNIT/ML (DIALYSIS) IVP PRN (11:58)
[2017-12-17] MEDS: LIDOCAINE/SOD BICARB 8.4% SYR SC PRN (11:59)
[2017-12-17] MEDS: CINACALCET HCL PO PRN (15:29)
[2017-12-19] MEDS: HEPARIN (PORCINE) 1000 UNIT/ML (DIALYSIS) IVP PRN (14:14)
[2017-12-19] MEDS: HEPARIN SOD (PORCINE) LOAD IVP PRN (14:14)
[2017-12-19] MEDS: LIDOCAINE/SOD BICARB 8.4% SYR SC PRN (14:16)
[2017-12-19] MEDS: DARBEPOETIN ESRD 40MCG/ML IVP PRN (16:31)
[2017-12-19] MEDS: CINACALCET HCL PO PRN (17:48)
[2017-12-22] MEDS: LIDOCAINE/SOD BICARB 8.4% SYR SC PRN (14:15)
[2017-12-22] MEDS: HEPARIN SOD (PORCINE) LOAD IVP PRN (14:15)
[2017-12-22] MEDS: HEPARIN (PORCINE) 1000 UNIT/ML (DIALYSIS) IVP PRN (14:15)
[2017-12-22] MEDS: DIALYSIS ACETAMINOPHEN 325 MG PO PRN (16:34)
[2017-12-22] MEDS: CINACALCET HCL PO PRN (17:36)
[2017-12-24] MEDS: HEPARIN SOD (PORCINE) LOAD IVP PRN (13:51)
[2017-12-24] MEDS: HEPARIN (PORCINE) 1000 UNIT/ML (DIALYSIS) IVP PRN (13:51)
[2017-12-24] MEDS: LIDOCAINE/SOD BICARB 8.4% SYR SC PRN (13:51)
[2017-12-24] MEDS: CINACALCET HCL PO PRN (17:22)
[2017-12-26] MEDS: HEPARIN (PORCINE) 1000 UNIT/ML (DIALYSIS) IVP PRN (14:18)
[2017-12-26] MEDS: LIDOCAINE/SOD BICARB 8.4% SYR SC PRN (14:18)
[2017-12-26] MEDS: HEPARIN SOD (PORCINE) LOAD IVP PRN (14:18)
[2017-12-26] MEDS: DARBEPOETIN ESRD 40MCG/ML IVP PRN (14:30)
[2017-12-29] MEDS: HEPARIN (PORCINE) 1000 UNIT/ML (DIALYSIS) IVP PRN (14:06)
[2017-12-29] MEDS: HEPARIN SOD (PORCINE) LOAD IVP PRN (14:06)
[2017-12-29] MEDS: LIDOCAINE/SOD BICARB 8.4% SYR SC PRN (14:06)
[2017-12-29] MEDS: CINACALCET HCL PO PRN (17:30)
[2017-12-31] MEDS: LIDOCAINE/SOD BICARB 8.4% SYR SC PRN (14:11)
[2017-12-31] MEDS: HEPARIN (PORCINE) 1000 UNIT/ML (DIALYSIS) IVP PRN (14:12)
[2017-12-31] MEDS: HEPARIN SOD (PORCINE) LOAD IVP PRN (14:12)
[2017-12-31 14:50] LABS: PLATELET COUNT, AUTOMATED 298 K/uL (150-450)
[2017-12-31] MEDS: CINACALCET HCL PO PRN (17:28)
[2018-01-02] MEDS: HEPARIN (PORCINE) 1000 UNIT/ML (DIALYSIS) IVP PRN (14:09)
[2018-01-02] MEDS: LIDOCAINE/SOD BICARB 8.4% SYR SC PRN (14:10)
[2018-01-02] MEDS: HEPARIN SOD (PORCINE) LOAD IVP PRN (14:10)
[2018-01-02] MEDS: CINACALCET HCL PO PRN (17:03)
[2018-01-05] MEDS: HEPARIN (PORCINE) 1000 UNIT/ML (DIALYSIS) IVP PRN (13:56)
[2018-01-05] MEDS: LIDOCAINE/SOD BICARB 8.4% SYR SC PRN (13:56)
[2018-01-05] MEDS: HEPARIN SOD (PORCINE) LOAD IVP PRN (13:57)
[2018-01-05] MEDS: CINACALCET HCL PO PRN (17:52)
[2018-01-07] MEDS: HEPARIN (PORCINE) 1000 UNIT/ML (DIALYSIS) IVP PRN (14:02)
[2018-01-07] MEDS: HEPARIN SOD (PORCINE) LOAD IVP PRN (14:03)
[2018-01-07] MEDS: LIDOCAINE/SOD BICARB 8.4% SYR SC PRN (14:03)
[2018-01-07] MEDS: CINACALCET HCL 90 MG PO PRN (17:06)
[2018-01-09] MEDS: LIDOCAINE/SOD BICARB 8.4% SYR SC PRN (14:16)
[2018-01-09] MEDS: HEPARIN SOD (PORCINE) LOAD IVP PRN (14:17)
[2018-01-09] MEDS: HEPARIN (PORCINE) 1000 UNIT/ML (DIALYSIS) IVP PRN (14:17)
[2018-01-09] MEDS: CINACALCET HCL 90 MG PO PRN (17:53)
[2018-01-12] MEDS: HEPARIN (PORCINE) 1000 UNIT/ML (DIALYSIS) IVP PRN (14:13)
[2018-01-12] MEDS: HEPARIN SOD (PORCINE) LOAD IVP PRN (14:13)
[2018-01-12] MEDS: LIDOCAINE/SOD BICARB 8.4% SYR SC PRN (14:14)
[2018-01-12] MEDS: CINACALCET HCL 90 MG PO PRN (17:41)
[2018-01-14] MEDS: HEPARIN SOD (PORCINE) LOAD IVP PRN (13:47)
[2018-01-14] MEDS: HEPARIN (PORCINE) 1000 UNIT/ML (DIALYSIS) IVP PRN (13:48)
[2018-01-14] MEDS: LIDOCAINE/SOD BICARB 8.4% SYR SC PRN (13:48)
[2018-01-14] MEDS: CINACALCET HCL 90 MG PO PRN (17:50)
[2018-01-16] MEDS: HEPARIN SOD (PORCINE) LOAD IVP PRN (06:20)
[2018-01-16] MEDS: LIDOCAINE/SOD BICARB 8.4% SYR SC PRN (06:20)
[2018-01-16] MEDS: HEPARIN (PORCINE) 1000 UNIT/ML (DIALYSIS) IVP PRN (06:20)
[2018-01-16] MEDS: CINACALCET HCL 90 MG PO PRN (09:44)
[2018-01-19] MEDS: LIDOCAINE/SOD BICARB 8.4% SYR SC PRN (13:55)
[2018-01-19] MEDS: HEPARIN SOD (PORCINE) LOAD IVP PRN (13:55)
[2018-01-19] MEDS: HEPARIN (PORCINE) 1000 UNIT/ML (DIALYSIS) IVP PRN (13:55)
[2018-01-19] MEDS: DIALYSIS ACETAMINOPHEN 325 MG PO PRN (16:57)
[2018-01-19] MEDS: CINACALCET HCL 90 MG PO PRN (17:39)
[2018-01-21] MEDS: HEPARIN SOD (PORCINE) LOAD IVP PRN (13:58)
[2018-01-21] MEDS: HEPARIN (PORCINE) 1000 UNIT/ML (DIALYSIS) IVP PRN (13:58)
[2018-01-21] MEDS: LIDOCAINE/SOD BICARB 8.4% SYR SC PRN (13:59)
[2018-01-21] MEDS: CINACALCET HCL 90 MG PO PRN (17:27)
[2018-01-23] MEDS: HEPARIN (PORCINE) 1000 UNIT/ML (DIALYSIS) IVP PRN (14:07)
[2018-01-23] MEDS: HEPARIN SOD (PORCINE) LOAD IVP PRN (14:07)
[2018-01-23] MEDS: DARBEPOETIN ESRD 100 MCG/0.5ML SYR IVP PRN (16:31)
[2018-01-23] MEDS: CINACALCET HCL 90 MG PO PRN (17:52)
[2018-01-26] MEDS: HEPARIN (PORCINE) 1000 UNIT/ML (DIALYSIS) IVP PRN (13:20)
[2018-01-26] MEDS: HEPARIN SOD (PORCINE) LOAD IVP PRN (13:20)
[2018-01-26] MEDS: LIDOCAINE/SOD BICARB 8.4% SYR SC PRN (13:21)
[2018-01-26] MEDS: DIALYSIS ACETAMINOPHEN 325 MG PO PRN (14:35)
[2018-01-26] MEDS: CINACALCET HCL 90 MG PO PRN (16:57)
[2018-01-28] MEDS: HEPARIN (PORCINE) 1000 UNIT/ML (DIALYSIS) IVP PRN (14:20)
[2018-01-28] MEDS: LIDOCAINE/SOD BICARB 8.4% SYR SC PRN (14:20)
[2018-01-28] MEDS: HEPARIN SOD (PORCINE) LOAD IVP PRN (14:20)
[2018-01-28] MEDS: CINACALCET HCL 90 MG PO PRN (18:09)
[2018-02-02] MEDS: HEPARIN SOD (PORCINE) LOAD IVP PRN (14:06)
[2018-02-02] MEDS: LIDOCAINE/SOD BICARB 8.4% SYR SC PRN (14:06)
[2018-02-02] MEDS: HEPARIN (PORCINE) 1000 UNIT/ML (DIALYSIS) IVP PRN (14:06)
[2018-02-02] MEDS: DIALYSIS ACETAMINOPHEN 325 MG PO PRN (16:46)
[2018-02-02] MEDS: CINACALCET HCL 90 MG PO PRN (17:34)
[2018-02-06] MEDS: HEPARIN SOD (PORCINE) LOAD IVP PRN (14:23)
[2018-02-06] MEDS: HEPARIN (PORCINE) 1000 UNIT/ML (DIALYSIS) IVP PRN (14:23)
[2018-02-06] MEDS: LIDOCAINE/SOD BICARB 8.4% SYR SC PRN (14:23)
[2018-02-06 15:17] LABS: PLATELET COUNT, AUTOMATED 182 K/uL (150-450)
[2018-02-06] MEDS: PROMETHAZINE HCL 25 MG TAB PO PRN (16:32)
[2018-02-06] MEDS: DARBEPOETIN ESRD 100 MCG/0.5ML SYR IVP PRN (16:32)
[2018-02-06] MEDS: DIALYSIS ACETAMINOPHEN 325 MG PO PRN (17:07)
[2018-02-06] MEDS: CINACALCET HCL 90 MG PO PRN (17:59)
[2018-02-09] MEDS: LIDOCAINE/SOD BICARB 8.4% SYR SC PRN (13:49)
[2018-02-09] MEDS: HEPARIN (PORCINE) 1000 UNIT/ML (DIALYSIS) IVP PRN (13:50)
[2018-02-09] MEDS: HEPARIN SOD (PORCINE) LOAD IVP PRN (13:50)
[2018-02-09] MEDS: CINACALCET HCL 90 MG PO PRN (17:28)
[2018-02-11] MEDS: LIDOCAINE/SOD BICARB 8.4% SYR SC PRN (14:16)
[2018-02-11] MEDS: HEPARIN (PORCINE) 1000 UNIT/ML (DIALYSIS) IVP PRN (14:16)
[2018-02-11] MEDS: HEPARIN SOD (PORCINE) LOAD IVP PRN (14:17)
[2018-02-11] MEDS: CINACALCET HCL PO PRN (17:47)
[2018-02-13] MEDS: HEPARIN SOD (PORCINE) LOAD IVP PRN (14:13)
[2018-02-13] MEDS: HEPARIN (PORCINE) 1000 UNIT/ML (DIALYSIS) IVP PRN (14:13)
[2018-02-13] MEDS: LIDOCAINE/SOD BICARB 8.4% SYR SC PRN (14:21)
[2018-02-13] MEDS: DARBEPOETIN ESRD 100 MCG/0.5ML SYR IVP PRN (15:01)
[2018-02-13] MEDS: CINACALCET HCL PO PRN (17:45)
[2018-02-16] MEDS: LIDOCAINE/SOD BICARB 8.4% SYR SC PRN (14:26)
[2018-02-16] MEDS: HEPARIN (PORCINE) 1000 UNIT/ML (DIALYSIS) IVP PRN (14:26)
[2018-02-16] MEDS: HEPARIN SOD (PORCINE) LOAD IVP PRN (14:27)
[2018-02-16] MEDS: CINACALCET HCL PO PRN (17:47)
[2018-02-18] MEDS: HEPARIN (PORCINE) 1000 UNIT/ML (DIALYSIS) IVP PRN (06:13)
[2018-02-18] MEDS: HEPARIN SOD (PORCINE) LOAD IVP PRN (06:13)
[2018-02-18] MEDS: LIDOCAINE/SOD BICARB 8.4% SYR SC PRN (06:13)
[2018-02-18] MEDS: CINACALCET HCL PO PRN (09:38)
[2018-02-20] MEDS: HEPARIN SOD (PORCINE) LOAD IVP PRN (06:04)
[2018-02-20] MEDS: HEPARIN (PORCINE) 1000 UNIT/ML (DIALYSIS) IVP PRN (06:04)
[2018-02-20] MEDS: LIDOCAINE/SOD BICARB 8.4% SYR SC PRN (06:04)
[2018-02-23] MEDS: HEPARIN SOD (PORCINE) LOAD IVP PRN (14:40)
[2018-02-23] MEDS: LIDOCAINE/SOD BICARB 8.4% SYR SC PRN (14:40)
[2018-02-23] MEDS: HEPARIN (PORCINE) 1000 UNIT/ML (DIALYSIS) IVP PRN (14:40)
[2018-02-23] MEDS: DARBEPOETIN ESRD 100 MCG/0.5ML SYR IVP PRN (14:55)
[2018-02-23] MEDS: CINACALCET HCL PO PRN (18:12)
[2018-02-25] MEDS: HEPARIN SOD (PORCINE) LOAD IVP PRN (14:15)
[2018-02-25] MEDS: HEPARIN (PORCINE) 1000 UNIT/ML (DIALYSIS) IVP PRN (14:15)
[2018-02-25] MEDS: LIDOCAINE/SOD BICARB 8.4% SYR SC PRN (14:16)
[2018-02-25 14:57] LABS: PLATELET COUNT, AUTOMATED 182 K/uL (150-450)
[2018-02-25] MEDS: DIALYSIS ACETAMINOPHEN 325 MG PO PRN (15:10)
[2018-02-25] MEDS: CINACALCET HCL PO PRN (17:33)
[2018-02-27] MEDS: HEPARIN (PORCINE) 1000 UNIT/ML (DIALYSIS) IVP PRN (14:12)
[2018-02-27] MEDS: HEPARIN SOD (PORCINE) LOAD IVP PRN (14:12)
[2018-02-27] MEDS: LIDOCAINE/SOD BICARB 8.4% SYR SC PRN (14:12)
[2018-02-27] MEDS: DIALYSIS ACETAMINOPHEN 325 MG PO PRN (14:59)
[2018-02-27] MEDS: CINACALCET HCL PO PRN (18:04)
[2018-03-02] MEDS: LIDOCAINE/SOD BICARB 8.4% SYR SC PRN (14:24)
[2018-03-02] MEDS: HEPARIN (PORCINE) 1000 UNIT/ML (DIALYSIS) IVP PRN (14:24)
[2018-03-02] MEDS: HEPARIN SOD (PORCINE) LOAD IVP PRN (14:24)
[2018-03-04] MEDS: HEPARIN (PORCINE) 1000 UNIT/ML (DIALYSIS) IVP PRN (14:11)
[2018-03-04] MEDS: LIDOCAINE/SOD BICARB 8.4% SYR SC PRN (14:12)
[2018-03-04] MEDS: HEPARIN SOD (PORCINE) LOAD IVP PRN (14:12)
[2018-03-04] MEDS: DIALYSIS ACETAMINOPHEN 325 MG PO PRN ×2 (14:21→14:25)
[2018-03-04] MEDS: PROMETHAZINE HCL 25 MG TAB PO PRN (17:19)
[2018-03-04] MEDS: CINACALCET HCL PO PRN (17:19)
[2018-03-06] MEDS: LIDOCAINE/SOD BICARB 8.4% SYR SC PRN (14:00)
[2018-03-06] MEDS: HEPARIN (PORCINE) 1000 UNIT/ML (DIALYSIS) IVP PRN (14:00)
[2018-03-06] MEDS: HEPARIN SOD (PORCINE) LOAD IVP PRN (14:01)
[2018-03-06] MEDS: DARBEPOETIN ESRD 25 MCG/ML IVP PRN (14:50)
[2018-03-06] MEDS: CINACALCET HCL PO PRN (17:34)
[2018-03-09] MEDS: HEPARIN (PORCINE) 1000 UNIT/ML (DIALYSIS) IVP PRN (14:13)
[2018-03-09] MEDS: LIDOCAINE/SOD BICARB 8.4% SYR SC PRN (14:14)
[2018-03-09] MEDS: HEPARIN SOD (PORCINE) LOAD IVP PRN (14:14)
[2018-03-09] MEDS: PROMETHAZINE HCL 25 MG TAB PO PRN (14:24)
[2018-03-09] MEDS: CINACALCET HCL PO PRN (17:44)
[2018-03-11] MEDS: HEPARIN SOD (PORCINE) LOAD IVP PRN (14:24)
[2018-03-11] MEDS: HEPARIN (PORCINE) 1000 UNIT/ML (DIALYSIS) IVP PRN (14:24)
[2018-03-11] MEDS: LIDOCAINE/SOD BICARB 8.4% SYR SC PRN (14:24)
[2018-03-13] MEDS: LIDOCAINE/SOD BICARB 8.4% SYR SC PRN (14:21)
[2018-03-13] MEDS: HEPARIN SOD (PORCINE) LOAD IVP PRN (14:22)
[2018-03-13] MEDS: HEPARIN (PORCINE) 1000 UNIT/ML (DIALYSIS) IVP PRN (14:22)
[2018-03-13] MEDS: DARBEPOETIN ESRD 25 MCG/ML IVP PRN (15:31)
[2018-03-13] MEDS: CINACALCET HCL PO PRN (18:19)
[2018-03-16] MEDS: LIDOCAINE/SOD BICARB 8.4% SYR SC PRN (14:00)
[2018-03-16] MEDS: HEPARIN SOD (PORCINE) LOAD IVP PRN (14:01)
[2018-03-16] MEDS: HEPARIN (PORCINE) 1000 UNIT/ML (DIALYSIS) IVP PRN (14:01)
[2018-03-16] MEDS: DIALYSIS ACETAMINOPHEN 325 MG PO PRN (16:04)
[2018-03-16] MEDS: CINACALCET HCL PO PRN (17:53)
[2018-03-18] MEDS: HEPARIN SOD (PORCINE) LOAD IVP PRN (13:59)
[2018-03-18] MEDS: HEPARIN (PORCINE) 1000 UNIT/ML (DIALYSIS) IVP PRN (13:59)
[2018-03-18] MEDS: LIDOCAINE/SOD BICARB 8.4% SYR SC PRN (13:59)
[2018-03-18] MEDS: CINACALCET HCL PO PRN (17:29)
[2018-03-20] MEDS: LIDOCAINE/SOD BICARB 8.4% SYR SC PRN (14:20)
[2018-03-20] MEDS: HEPARIN (PORCINE) 1000 UNIT/ML (DIALYSIS) IVP PRN (14:20)
[2018-03-20] MEDS: HEPARIN SOD (PORCINE) LOAD IVP PRN (14:21)
[2018-03-20] MEDS: DARBEPOETIN ESRD 25 MCG/ML IVP PRN (15:33)
[2018-03-20] MEDS: CINACALCET HCL PO PRN (17:22)
[2018-03-23] MEDS: HEPARIN SOD (PORCINE) LOAD IVP PRN (13:38)
[2018-03-23] MEDS: HEPARIN (PORCINE) 1000 UNIT/ML (DIALYSIS) IVP PRN (13:39)
[2018-03-23] MEDS: LIDOCAINE/SOD BICARB 8.4% SYR SC PRN (17:08)
[2018-03-23] MEDS: CINACALCET HCL PO PRN (17:08)
[2018-03-25] MEDS: HEPARIN SOD (PORCINE) LOAD IVP PRN (13:50)
[2018-03-25] MEDS: HEPARIN (PORCINE) 1000 UNIT/ML (DIALYSIS) IVP PRN (13:50)
[2018-03-25] MEDS: LIDOCAINE/SOD BICARB 8.4% SYR SC PRN (13:50)
[2018-03-25] MEDS: CINACALCET HCL PO PRN (17:48)
[2018-03-27] MEDS: HEPARIN (PORCINE) 1000 UNIT/ML (DIALYSIS) IVP PRN (14:41)
[2018-03-27] MEDS: LIDOCAINE/SOD BICARB 8.4% SYR SC PRN (14:41)
[2018-03-27] MEDS: HEPARIN SOD (PORCINE) LOAD IVP PRN (14:42)
[2018-03-27] MEDS: DARBEPOETIN ESRD 25 MCG/ML IVP PRN (14:54)
[2018-03-27] MEDS: CINACALCET HCL PO PRN (18:23)
[2018-04-01] MEDS: HEPARIN (PORCINE) 1000 UNIT/ML (DIALYSIS) IVP PRN (13:50)
[2018-04-01] MEDS: HEPARIN SOD (PORCINE) LOAD IVP PRN (13:50)
[2018-04-01] MEDS: DIALYSIS ACETAMINOPHEN 325 MG PO PRN (16:33)
[2018-04-01] MEDS: CINACALCET HCL PO PRN (18:11)
[2018-04-03] MEDS: LIDOCAINE/SOD BICARB 8.4% SYR SC PRN (14:18)
[2018-04-03] MEDS: HEPARIN SOD (PORCINE) LOAD IVP PRN (14:18)
[2018-04-03] MEDS: HEPARIN (PORCINE) 1000 UNIT/ML (DIALYSIS) IVP PRN (14:19)
[2018-04-03] MEDS: DARBEPOETIN ESRD 25 MCG/ML IVP PRN (14:40)
[2018-04-03] MEDS: CINACALCET HCL PO PRN (17:38)
[2018-04-06] MEDS: HEPARIN (PORCINE) 1000 UNIT/ML (DIALYSIS) IVP PRN (13:53)
[2018-04-06] MEDS: LIDOCAINE/SOD BICARB 8.4% SYR SC PRN (13:53)
[2018-04-06] MEDS: HEPARIN SOD (PORCINE) LOAD IVP PRN (13:54)
[2018-04-06] MEDS: CINACALCET HCL PO PRN (17:45)
[2018-04-08] MEDS: HEPARIN SOD (PORCINE) LOAD IVP PRN (13:49)
[2018-04-08] MEDS: LIDOCAINE/SOD BICARB 8.4% SYR SC PRN (13:49)
[2018-04-08] MEDS: HEPARIN (PORCINE) 1000 UNIT/ML (DIALYSIS) IVP PRN (13:50)
[2018-04-08] MEDS: PROMETHAZINE HCL 25 MG TAB PO PRN (14:18)
[2018-04-08] MEDS: DIALYSIS ACETAMINOPHEN 325 MG PO PRN (14:19)
[2018-04-08 14:23] LABS: PLATELET COUNT, AUTOMATED 207 K/uL (150-450)
[2018-04-08] MEDS: CINACALCET HCL PO PRN (17:15)
[2018-04-10] MEDS: HEPARIN (PORCINE) 1000 UNIT/ML (DIALYSIS) IVP PRN (14:46)
[2018-04-10] MEDS: LIDOCAINE/SOD BICARB 8.4% SYR SC PRN (14:47)
[2018-04-10] MEDS: HEPARIN SOD (PORCINE) LOAD IVP PRN (14:47)
[2018-04-10] MEDS: DIALYSIS ACETAMINOPHEN 325 MG PO PRN (14:50)
[2018-04-10] MEDS: PROMETHAZINE HCL 25 MG TAB PO PRN (14:51)
[2018-04-10] MEDS: DARBEPOETIN ESRD 25 MCG/ML IVP PRN (15:35)
[2018-04-10] MEDS: CINACALCET HCL PO PRN (18:11)
[2018-04-13] MEDS: LIDOCAINE/SOD BICARB 8.4% SYR SC PRN (14:16)
[2018-04-13] MEDS: HEPARIN SOD (PORCINE) LOAD IVP PRN (14:16)
[2018-04-13] MEDS: HEPARIN (PORCINE) 1000 UNIT/ML (DIALYSIS) IVP PRN (14:16)
[2018-04-13] MEDS: DIALYSIS ACETAMINOPHEN 325 MG PO PRN (17:04)
[2018-04-13] MEDS: CINACALCET HCL PO PRN (17:49)
[2018-04-15] MEDS: HEPARIN (PORCINE) 1000 UNIT/ML (DIALYSIS) IVP PRN (13:43)
[2018-04-15] MEDS: HEPARIN SOD (PORCINE) LOAD IVP PRN (13:43)
[2018-04-15] MEDS: LIDOCAINE/SOD BICARB 8.4% SYR SC PRN (13:44)
[2018-04-15] MEDS: CINACALCET HCL PO PRN (17:24)
[2018-04-20] MEDS: HEPARIN (PORCINE) 1000 UNIT/ML (DIALYSIS) IVP PRN (13:42)
[2018-04-20] MEDS: LIDOCAINE/SOD BICARB 8.4% SYR SC PRN (13:42)
[2018-04-20] MEDS: HEPARIN SOD (PORCINE) LOAD IVP PRN (13:43)
[2018-04-20] MEDS: CINACALCET HCL PO PRN (17:00)
[2018-04-22] MEDS: LIDOCAINE/SOD BICARB 8.4% SYR SC PRN (13:55)
[2018-04-22] MEDS: HEPARIN SOD (PORCINE) LOAD IVP PRN (13:56)
[2018-04-22] MEDS: PROMETHAZINE HCL 25 MG TAB PO PRN (13:56)
[2018-04-22] MEDS: DIALYSIS ACETAMINOPHEN 325 MG PO PRN (13:56)
[2018-04-22] MEDS: HEPARIN (PORCINE) 1000 UNIT/ML (DIALYSIS) IVP PRN (13:56)
[2018-04-22] MEDS: CINACALCET HCL PO PRN (17:43)
[2018-04-24] MEDS: LIDOCAINE/SOD BICARB 8.4% SYR SC PRN (14:05)
[2018-04-24] MEDS: HEPARIN SOD (PORCINE) LOAD IVP PRN (14:05)
[2018-04-24] MEDS: HEPARIN (PORCINE) 1000 UNIT/ML (DIALYSIS) IVP PRN (14:05)
[2018-04-24] MEDS: DIALYSIS ACETAMINOPHEN 325 MG PO PRN (14:13)
[2018-04-24] MEDS: PROMETHAZINE HCL 25 MG TAB PO PRN (14:15)
[2018-04-24] MEDS: DARBEPOETIN ESRD 25 MCG/ML IVP PRN (14:34)
[2018-04-27] MEDS: HEPARIN (PORCINE) 1000 UNIT/ML (DIALYSIS) IVP PRN (13:28)
[2018-04-27] MEDS: HEPARIN SOD (PORCINE) LOAD IVP PRN (13:28)
[2018-04-29] MEDS: HEPARIN SOD (PORCINE) LOAD IVP PRN (14:25)
[2018-04-29] MEDS: LIDOCAINE/SOD BICARB 8.4% SYR SC PRN (14:25)
[2018-04-29] MEDS: HEPARIN (PORCINE) 1000 UNIT/ML (DIALYSIS) IVP PRN (14:25)
[2018-04-29] MEDS: CINACALCET HCL PO PRN (17:31)
[2018-05-01] MEDS: DIALYSIS ACETAMINOPHEN 325 MG PO PRN (14:27)
[2018-05-01] MEDS: LIDOCAINE/SOD BICARB 8.4% SYR SC PRN (14:28)
[2018-05-01] MEDS: HEPARIN SOD (PORCINE) LOAD IVP PRN (14:28)
[2018-05-01] MEDS: HEPARIN (PORCINE) 1000 UNIT/ML (DIALYSIS) IVP PRN (14:28)
[2018-05-01] MEDS: DARBEPOETIN ESRD 40MCG/ML IVP PRN (14:50)
[2018-05-04] MEDS: HEPARIN SOD (PORCINE) LOAD IVP PRN (14:29)
[2018-05-04] MEDS: LIDOCAINE/SOD BICARB 8.4% SYR SC PRN (14:29)
[2018-05-04] MEDS: HEPARIN (PORCINE) 1000 UNIT/ML (DIALYSIS) IVP PRN (14:29)
[2018-05-04] MEDS: DIALYSIS ACETAMINOPHEN 325 MG PO PRN (14:46)
[2018-05-04] MEDS: CINACALCET HCL PO PRN (17:55)
[2018-05-06] MEDS: LIDOCAINE/SOD BICARB 8.4% SYR SC PRN (14:35)
[2018-05-06] MEDS: HEPARIN SOD (PORCINE) LOAD IVP PRN (14:35)
[2018-05-06] MEDS: HEPARIN (PORCINE) 1000 UNIT/ML (DIALYSIS) IVP PRN (14:36)
[2018-05-06] MEDS: DIALYSIS ACETAMINOPHEN 325 MG PO PRN (15:11)
[2018-05-06] MEDS: CINACALCET HCL PO PRN (18:36)
[2018-05-08] MEDS: HEPARIN SOD (PORCINE) LOAD IVP PRN (14:34)
[2018-05-08] MEDS: LIDOCAINE/SOD BICARB 8.4% SYR SC PRN (14:35)
[2018-05-08] MEDS: HEPARIN (PORCINE) 1000 UNIT/ML (DIALYSIS) IVP PRN (14:35)
[2018-05-08] MEDS: DARBEPOETIN ESRD 40MCG/ML IVP PRN (15:37)
[2018-05-11] MEDS: HEPARIN (PORCINE) 1000 UNIT/ML (DIALYSIS) IVP PRN (14:23)
[2018-05-11] MEDS: HEPARIN SOD (PORCINE) LOAD IVP PRN (14:23)
[2018-05-11] MEDS: LIDOCAINE/SOD BICARB 8.4% SYR SC PRN (14:23)
[2018-05-11] MEDS: CINACALCET HCL PO PRN (18:03)
[2018-05-13] MEDS: LIDOCAINE/SOD BICARB 8.4% SYR SC PRN (14:43)
[2018-05-13] MEDS: HEPARIN (PORCINE) 1000 UNIT/ML (DIALYSIS) IVP PRN (14:43)
[2018-05-13] MEDS: HEPARIN SOD (PORCINE) LOAD IVP PRN (14:43)
[2018-05-13] MEDS: PROMETHAZINE HCL 25 MG TAB PO PRN (14:48)
[2018-05-13] MEDS: DIALYSIS ACETAMINOPHEN 325 MG PO PRN (14:48)
[2018-05-13 15:03] LABS: PLATELET COUNT, AUTOMATED 219 K/uL (150-450)
[2018-05-15] MEDS: LIDOCAINE/SOD BICARB 8.4% SYR SC PRN (15:10)
[2018-05-15] MEDS: HEPARIN SOD (PORCINE) LOAD IVP PRN (15:10)
[2018-05-15] MEDS: HEPARIN (PORCINE) 1000 UNIT/ML (DIALYSIS) IVP PRN (15:10)
[2018-05-15] MEDS: DIALYSIS ACETAMINOPHEN 325 MG PO PRN (15:20)
[2018-05-15] MEDS: PROMETHAZINE HCL 25 MG TAB PO PRN (15:20)
[2018-05-15] MEDS: DARBEPOETIN ESRD 40MCG/ML IVP PRN (16:38)
[2018-05-18] MEDS: LIDOCAINE/SOD BICARB 8.4% SYR SC PRN (15:45)
[2018-05-18] MEDS: HEPARIN (PORCINE) 1000 UNIT/ML (DIALYSIS) IVP PRN (15:46)
[2018-05-18] MEDS: HEPARIN SOD (PORCINE) LOAD IVP PRN (15:46)
[2018-05-18] MEDS: CINACALCET HCL PO PRN (19:15)
[2018-05-20] MEDS: HEPARIN (PORCINE) 1000 UNIT/ML (DIALYSIS) IVP PRN (14:24)
[2018-05-20] MEDS: HEPARIN SOD (PORCINE) LOAD IVP PRN (14:24)
[2018-05-20] MEDS: LIDOCAINE/SOD BICARB 8.4% SYR SC PRN (14:25)
[2018-05-20] MEDS: DIALYSIS ACETAMINOPHEN 325 MG PO PRN (14:51)
[2018-05-20] MEDS: SODIUM FERRIC GLUC 62.5 MG/5ML IVP PRN (16:25)
[2018-05-20] MEDS: CINACALCET HCL PO PRN (17:30)
[2018-05-22] MEDS: HEPARIN SOD (PORCINE) LOAD IVP PRN (14:36)
[2018-05-22] MEDS: HEPARIN (PORCINE) 1000 UNIT/ML (DIALYSIS) IVP PRN (14:36)
[2018-05-22] MEDS: LIDOCAINE/SOD BICARB 8.4% SYR SC PRN (14:37)
[2018-05-22] MEDS: DIALYSIS ACETAMINOPHEN 325 MG PO PRN (14:37)
[2018-05-25] MEDS: LIDOCAINE/SOD BICARB 8.4% SYR SC PRN (14:22)
[2018-05-25] MEDS: HEPARIN SOD (PORCINE) LOAD IVP PRN (14:22)
[2018-05-25] MEDS: HEPARIN (PORCINE) 1000 UNIT/ML (DIALYSIS) IVP PRN (14:22)
[2018-05-25] MEDS: PROMETHAZINE HCL 25 MG TAB PO PRN (14:23)
[2018-05-25] MEDS: DIALYSIS ACETAMINOPHEN 325 MG PO PRN (14:24)
[2018-05-25] MEDS: CINACALCET HCL PO PRN (17:48)
[2018-05-27] MEDS: HEPARIN SOD (PORCINE) LOAD IVP PRN (14:23)
[2018-05-27] MEDS: LIDOCAINE/SOD BICARB 8.4% SYR SC PRN (14:23)
[2018-05-27] MEDS: HEPARIN (PORCINE) 1000 UNIT/ML (DIALYSIS) IVP PRN (14:23)
[2018-05-27] MEDS: SODIUM FERRIC GLUC 62.5 MG/5ML IVP PRN (15:18)
[2018-06-03] MEDS: HEPARIN (PORCINE) 1000 UNIT/ML (DIALYSIS) IVP PRN (14:33)
[2018-06-03] MEDS: LIDOCAINE/SOD BICARB 8.4% SYR SC PRN (14:33)
[2018-06-03] MEDS: HEPARIN SOD (PORCINE) LOAD IVP PRN (14:33)
[2018-06-03] MEDS: SODIUM FERRIC GLUC 62.5 MG/5ML IVP PRN (14:53)
[2018-06-03] MEDS: DIALYSIS ACETAMINOPHEN 325 MG PO PRN (15:27)
[2018-06-03] MEDS: CINACALCET HCL PO PRN (18:21)
[2018-06-08] MEDS: LIDOCAINE/SOD BICARB 8.4% SYR SC PRN (14:28)
[2018-06-08] MEDS: HEPARIN (PORCINE) 1000 UNIT/ML (DIALYSIS) IVP PRN (14:29)
[2018-06-08] MEDS: HEPARIN SOD (PORCINE) LOAD IVP PRN (14:29)
[2018-06-08] MEDS: DIALYSIS ACETAMINOPHEN 325 MG PO PRN (14:54)
[2018-06-16] MEDS: HEPARIN (PORCINE) 1000 UNIT/ML (DIALYSIS) IVP PRN (10:49)
[2018-06-16] MEDS: HEPARIN SOD (PORCINE) LOAD IVP PRN (10:49)
[2018-06-16 11:25] LABS: PLATELET COUNT, AUTOMATED 200 K/uL (150-450)
[2018-06-19] MEDS: HEPARIN (PORCINE) 1000 UNIT/ML (DIALYSIS) IVP PRN (14:32)
[2018-06-19] MEDS: LIDOCAINE/SOD BICARB 8.4% SYR SC PRN (14:32)
[2018-06-19] MEDS: HEPARIN SOD (PORCINE) LOAD IVP PRN (14:32)
[2018-06-19] MEDS: DARBEPOETIN ESRD 100 MCG/0.5ML 100 MCG, DARBEPOETIN ESRD 25 MCG/ML 50 MCG IVP PRN ×2 (14:59→18:02)
[2018-06-19] MEDS: SODIUM FERRIC GLUC 62.5 MG/5ML IVP PRN (15:05)
[2018-06-19] MEDS: CINACALCET HCL PO PRN (18:03)
[2018-06-22] MEDS: LIDOCAINE/SOD BICARB 8.4% SYR SC PRN (14:22)
[2018-06-22] MEDS: HEPARIN (PORCINE) 1000 UNIT/ML (DIALYSIS) IVP PRN (14:22)
[2018-06-22] MEDS: HEPARIN SOD (PORCINE) LOAD IVP PRN (14:22)
[2018-06-29] MEDS: LIDOCAINE/SOD BICARB 8.4% SYR SC PRN (15:40)
[2018-06-29] MEDS: HEPARIN SOD (PORCINE) LOAD IVP PRN (15:41)
[2018-06-29] MEDS: HEPARIN (PORCINE) 1000 UNIT/ML (DIALYSIS) IVP PRN (15:41)
[2018-06-29 16:24] LABS: PLATELET COUNT, AUTOMATED 201 K/uL (150-450)
[2018-07-01] MEDS: LIDOCAINE/SOD BICARB 8.4% SYR SC PRN (14:46)
[2018-07-01] MEDS: HEPARIN SOD (PORCINE) LOAD IVP PRN (14:46)
[2018-07-01] MEDS: HEPARIN (PORCINE) 1000 UNIT/ML (DIALYSIS) IVP PRN (14:46)
[2018-07-01] MEDS: SODIUM FERRIC GLUC 62.5 MG/5ML IVP PRN (17:37)
[2018-07-03] MEDS: LIDOCAINE/SOD BICARB 8.4% SYR SC PRN (15:16)
[2018-07-03] MEDS: HEPARIN (PORCINE) 1000 UNIT/ML (DIALYSIS) IVP PRN (15:16)
[2018-07-03] MEDS: HEPARIN SOD (PORCINE) LOAD IVP PRN (15:16)
[2018-07-03] MEDS: DARBEPOETIN ESRD 100 MCG/0.5ML SYR IVP PRN (16:43)
[2018-07-03] MEDS: CALCIUM GLUC IVPB PRN (18:11)
[2018-07-03] MEDS: NS 0.9% IVPB PRN (18:11)
[2018-07-03] MEDS: [UNRECOGNIZED DRUG - OTHER] IVPB PRN (18:11)
[2018-07-06] MEDS: HEPARIN SOD (PORCINE) LOAD IVP PRN (14:12)
[2018-07-06] MEDS: HEPARIN (PORCINE) 1000 UNIT/ML (DIALYSIS) IVP PRN (14:12)
[2018-07-06] MEDS: LIDOCAINE/SOD BICARB 8.4% SYR SC PRN (14:13)
[2018-07-06] MEDS: NS 0.9% IVPB PRN (17:03)
[2018-07-06] MEDS: CALCIUM GLUC IVPB PRN (17:03)
[2018-07-06] MEDS: [UNRECOGNIZED DRUG - OTHER] IVPB PRN (17:03)
[2018-07-08] MEDS: HEPARIN SOD (PORCINE) LOAD IVP PRN (14:47)
[2018-07-08] MEDS: LIDOCAINE/SOD BICARB 8.4% SYR SC PRN (14:47)
[2018-07-08] MEDS: HEPARIN (PORCINE) 1000 UNIT/ML (DIALYSIS) IVP PRN (14:48)
[2018-07-08] MEDS: SODIUM FERRIC GLUC 62.5 MG/5ML IVP PRN (15:09)
[2018-07-08] MEDS: NS 0.9% IVPB PRN (17:36)
[2018-07-08] MEDS: CALCIUM GLUC IVPB PRN (17:36)
[2018-07-08] MEDS: [UNRECOGNIZED DRUG - OTHER] IVPB PRN (17:36)
[2018-07-10] MEDS: HEPARIN SOD (PORCINE) LOAD IVP PRN (14:20)
[2018-07-10] MEDS: HEPARIN (PORCINE) 1000 UNIT/ML (DIALYSIS) IVP PRN (14:20)
[2018-07-10] MEDS: LIDOCAINE/SOD BICARB 8.4% SYR SC PRN (14:21)
[2018-07-10] MEDS: DARBEPOETIN ESRD 100 MCG/0.5ML SYR IVP PRN (14:50)
[2018-07-10] MEDS: [UNRECOGNIZED DRUG - OTHER] IVPB PRN (17:25)
[2018-07-10] MEDS: CALCIUM GLUC IVPB PRN (17:25)
[2018-07-10] MEDS: NS 0.9% IVPB PRN (17:25)
[2018-07-15] MEDS: HEPARIN SOD (PORCINE) LOAD IVP PRN (15:02)
[2018-07-15] MEDS: HEPARIN (PORCINE) 1000 UNIT/ML (DIALYSIS) IVP PRN (15:03)
[2018-07-15] MEDS: LIDOCAINE/SOD BICARB 8.4% SYR SC PRN (15:32)
[2018-07-15] MEDS: SODIUM FERRIC GLUC 62.5 MG/5ML IVP PRN (16:09)
[2018-07-15] MEDS: [UNRECOGNIZED DRUG - OTHER] IVPB PRN (18:21)
[2018-07-15] MEDS: NS 0.9% IVPB PRN (18:21)
[2018-07-15] MEDS: CALCIUM GLUC IVPB PRN (18:21)
[2018-07-17] MEDS: HEPARIN SOD (PORCINE) LOAD IVP PRN (15:28)
[2018-07-17] MEDS: HEPARIN (PORCINE) 1000 UNIT/ML (DIALYSIS) IVP PRN (15:28)
[2018-07-17] MEDS: LIDOCAINE/SOD BICARB 8.4% SYR SC PRN (15:28)
[2018-07-17] MEDS: DARBEPOETIN ESRD 100 MCG/0.5ML SYR IVP PRN (16:08)
[2018-07-17] MEDS: NS 0.9% IVPB PRN (18:34)
[2018-07-17] MEDS: CALCIUM GLUC IVPB PRN (18:34)
[2018-07-17] MEDS: [UNRECOGNIZED DRUG - OTHER] IVPB PRN (18:34)
[2018-07-20] MEDS: HEPARIN (PORCINE) 1000 UNIT/ML (DIALYSIS) IVP PRN (15:24)
[2018-07-20] MEDS: HEPARIN SOD (PORCINE) LOAD IVP PRN (15:24)
[2018-07-20] MEDS: LIDOCAINE/SOD BICARB 8.4% SYR SC PRN (15:24)
[2018-07-20] MEDS: DIALYSIS ACETAMINOPHEN 325 MG PO PRN (18:46)
[~2018-07-22 08:30] MED LIST changes: +ALTEPLASE RECOMB 2 MG VIAL IVP PRN; +CALCIUM GLUC 1 GM/NS 100 ML IVPB PRN; +CALCIUM GLUC 10% 100 MG/ML VL IVP ONE; +CALCIUM GLUC 10% 100 MG/ML VL IVP PRN; +CALCIUM GLUC 100 MG/ML 50 ML SDV IVP PRN; +CALCIUM GLUC IVPB ONE; +CALCIUM GLUC IVPB PRN; +CINACALCET HCL 30 MG TABLET PO ONE; +CINACALCET HCL 90 MG PO ONE; +CINACALCET HCL 90 MG PO PRN; +DARBEPOETIN ESRD 100 MCG/0.5ML SYR IVP ONE; +DARBEPOETIN ESRD 100 MCG/0.5ML SYR IVP PRN; +DARBEPOETIN ESRD 25 MCG/ML IVP ONE; +DARBEPOETIN ESRD 25 MCG/ML IVP PRN; +DARBEPOETIN ESRD 40MCG/ML IVP PRN; +DEXTROSE 50% 50 ML SYR IVP PRN; +INFLUENZA VIRUS VAC 0.5ML SYR IM ONLY ONE; +LIDOCAINE/PRILOCAINE 30GM TUBE TP PRN; +LOPERAMIDE HCL 2 MG CAP PO PRN; +NS 0.9% IVPB ONE; +NS 0.9% IVPB PRN; +SODIUM FERRIC GLUC 62.5 MG/5ML IVP PRN; +WATER STERILE 10 ML VIAL IV PRN; +[UNRECOGNIZED DRUG - OTHER] IV PRN; +[UNRECOGNIZED DRUG - OTHER] IVP PRN; +[UNRECOGNIZED DRUG - OTHER] IVP PRN; +[UNRECOGNIZED DRUG - OTHER] IVPB ONE; +[UNRECOGNIZED DRUG - OTHER] IVPB ONE; +[UNRECOGNIZED DRUG - OTHER] IVPB PRN; +diphenhydr DIALYSIS 50 MG/ML IVP PRN
== END | disposition home or self-care (01) ==
LOC: DIAL 07-21 05:57
PROVIDERS: ATTEND Internal Medicine Nephrology
DX: I12.0 Hypertensive chronic kidney disease with stage 5 chronic kidney disease or end stage renal disease (principal); N18.6 End stage renal disease; D63.1 Anemia in chronic kidney disease; N25.81 Secondary hyperparathyroidism of renal origin; E83.39 Other disorders of phosphorus metabolism; G93.41 Metabolic encephalopathy; I95.3 Hypotension of hemodialysis; Q64.9 Congenital malformation of urinary system, unspecified; T86.12 Kidney transplant failure; Z99.2 Dependence on renal dialysis; Z91.19 Patient's noncompliance with other medical treatment and regimen; E83.52 Hypercalcemia; R74.0 Nonspecific elevation of levels of transaminase and lactic acid dehydrogenase [LDH]; E22.1 Hyperprolactinemia; E66.9 Obesity, unspecified; F31.9 Bipolar disorder, unspecified; Z79.82 Long term (current) use of aspirin; K21.9 Gastro-esophageal reflux disease without esophagitis; Z23 Encounter for immunization
CPT/HCPCS: 82040; 82108; 82247; 82310; 82374; 82465; 82565; 82728; 82947; 83540; 83550; 83970; 84075; 84100; 84132; 84146; 84295; 84460; 84478; 84520; 85018; 85025; 86580; 90999; A4657; A9270; G0008; G0472; J0606; J0610; J0882; J2916; J7050; Q0169; Q2037; 86803; 90658; 90674

== ENCOUNTER 2018-07-22 10:14 | Outpatient (RCR) | payer MEDICARE, MEDICAID ==
[2016-01-11 12:26] VITALS: BMI 21.8
[~2018-07-22 10:14] MED LIST changes: -ALTEPLASE RECOMB 2 MG VIAL IVP PRN; -AMLO-111 PO; +AMLO-125 PO; -CALC-488 PO; +CALC-743 PO; +CALC667T PO; -CALC667T3 PO; -CALCIUM GLUC 10% 100 MG/ML VL IVP ONE; -CALCIUM GLUC 100 MG/ML 50 ML SDV IVP PRN; -CALCIUM GLUC IVPB ONE; -CALCIUM GLUC IVPB PRN; -CINACALCET HCL 30 MG TABLET PO ONE; -CINACALCET HCL 90 MG PO ONE; -CINACALCET HCL 90 MG PO PRN; -DARBEPOETIN ESRD 100 MCG/0.5ML SYR IVP ONE; -DARBEPOETIN ESRD 25 MCG/ML IVP ONE; -DARBEPOETIN ESRD 25 MCG/ML IVP PRN; -DARBEPOETIN ESRD 40MCG/ML IVP PRN; -DEXTROSE 50% 50 ML SYR IVP PRN; -INFLUENZA VIRUS VAC 0.5ML SYR IM ONLY ONE; -LEVE500T75 PO; +LEVE500T9 PO; -LIDOCAINE/PRILOCAINE 30GM TUBE TP PRN; -LOPERAMIDE HCL 2 MG CAP PO PRN; -NS 0.9% IVPB ONE; -NS 0.9% IVPB PRN; -RANI-366 PO; +RANI-54 PO; -SODIUM FERRIC GLUC 62.5 MG/5ML IVP PRN; -WATER STERILE 10 ML VIAL IV PRN; -[UNRECOGNIZED DRUG - OTHER] IV PRN; -[UNRECOGNIZED DRUG - OTHER] IVP PRN; -[UNRECOGNIZED DRUG - OTHER] IVP PRN; -[UNRECOGNIZED DRUG - OTHER] IVPB ONE; -[UNRECOGNIZED DRUG - OTHER] IVPB ONE; -[UNRECOGNIZED DRUG - OTHER] IVPB PRN
[2018-07-22] MEDS: LIDOCAINE/SOD BICARB 8.4% SYR SC PRN (15:09)
[2018-07-22] MEDS: HEPARIN (PORCINE) 1000 UNIT/ML (DIALYSIS) IVP PRN ×2 (15:10)
[2018-07-22] MEDS: SODIUM FERRIC GLUC 62.5 MG/5ML IVP PRN (15:30)
[2018-07-22] MEDS: CALCIUM GLUC 1 GM/NS 100 ML IVPB PRN (16:11)
[2018-07-24] MEDS: LIDOCAINE/SOD BICARB 8.4% SYR SC PRN (15:58)
[2018-07-24] MEDS: HEPARIN (PORCINE) 1000 UNIT/ML (DIALYSIS) IVP PRN ×2 (15:59)
[2018-07-24] MEDS: DIALYSIS ACETAMINOPHEN 325 MG PO PRN (16:06)
[2018-07-24] MEDS: DARBEPOETIN ESRD 100 MCG/0.5ML SYR IVP PRN (16:07)
[2018-07-24] MEDS: CALCIUM GLUC 1 GM/NS 100 ML IVPB PRN (16:22)
[2018-07-27] MEDS: HEPARIN (PORCINE) 1000 UNIT/ML (DIALYSIS) IVP PRN ×2 (15:23)
[2018-07-27] MEDS: LIDOCAINE/SOD BICARB 8.4% SYR SC PRN (15:23)
[2018-07-27] MEDS: CALCIUM GLUC 1 GM/NS 100 ML IVPB PRN (16:25)
[2018-07-29] MEDS: HEPARIN (PORCINE) 1000 UNIT/ML (DIALYSIS) IVP PRN ×2 (15:06)
[2018-07-29] MEDS: LIDOCAINE/SOD BICARB 8.4% SYR SC PRN (15:07)
[2018-07-29] MEDS: SODIUM FERRIC GLUC 62.5 MG/5ML IVP PRN (15:52)
[2018-07-29] MEDS: CALCIUM GLUC 1 GM/NS 100 ML IVPB PRN (16:03)
[2018-07-31] MEDS: HEPARIN (PORCINE) 1000 UNIT/ML (DIALYSIS) IVP PRN ×2 (13:41)
[2018-07-31] MEDS: LIDOCAINE/SOD BICARB 8.4% SYR SC PRN (13:41)
[2018-07-31] MEDS: DARBEPOETIN ESRD 100 MCG/0.5ML SYR IVP PRN (13:56)
[2018-07-31] MEDS: CALCIUM GLUC 1 GM/NS 100 ML IVPB PRN (14:50)
[2018-07-31] MEDS ORDERED: CHOL500062 PO (17:30)
[2018-08-03] MEDS: LIDOCAINE/SOD BICARB 8.4% SYR SC PRN (15:01)
[2018-08-03] MEDS: HEPARIN (PORCINE) 1000 UNIT/ML (DIALYSIS) IVP PRN ×2 (15:01)
[2018-08-03] MEDS: CALCIUM GLUC 1 GM/NS 100 ML IVPB PRN (15:32)
[2018-08-03] MEDS: CALCITRIOL IV PRN (17:30)
[2018-08-05] MEDS: HEPARIN (PORCINE) 1000 UNIT/ML (DIALYSIS) IVP PRN ×2 (14:36)
[2018-08-05] MEDS: LIDOCAINE/SOD BICARB 8.4% SYR SC PRN (14:37)
[2018-08-05] MEDS ORDERED: CALCIUM GLUC 10% 100 MG/ML VL IVP ONE (15:45)
[2018-08-05] MEDS ORDERED: CALCIUM GLUC(*)10% 100MG/ML VL 2,000 MG in NS(*) 0.9% 100 ML BAG 100 ML IVPB ONE (16:15)
[2018-08-05] MEDS: SODIUM FERRIC GLUC 62.5 MG/5ML IVP PRN (16:37)
[2018-08-05] MEDS: CALCITRIOL IV PRN (18:06)
[2018-08-07] MEDS: LIDOCAINE/SOD BICARB 8.4% SYR SC PRN (14:03)
[2018-08-07] MEDS: HEPARIN (PORCINE) 1000 UNIT/ML (DIALYSIS) IVP PRN ×2 (14:03→14:04)
[2018-08-07] MEDS ORDERED: CALCITRIOL 0.25 MCG CAP PO ONE (15:10)
[2018-08-07] MEDS ORDERED: CALCIUM GLUC(*)10% 100MG/ML VL 2,000 MG in NS(*) 0.9% 100 ML BAG 100 ML IVPB ONE (15:30)
[2018-08-10] MEDS: LIDOCAINE/SOD BICARB 8.4% SYR SC PRN (14:02)
[2018-08-10] MEDS: HEPARIN (PORCINE) 1000 UNIT/ML (DIALYSIS) IVP PRN ×2 (14:02)
[2018-08-10] MEDS ORDERED: CALCITRIOL 0.25 MCG CAP PO PRN (14:55)
[2018-08-12] MEDS: LIDOCAINE/SOD BICARB 8.4% SYR SC PRN (14:24)
[2018-08-12] MEDS: HEPARIN (PORCINE) 1000 UNIT/ML (DIALYSIS) IVP PRN ×2 (14:25)
[2018-08-12 15:00] LABS: PLATELET COUNT, AUTOMATED 219 K/uL (150-450)
[2018-08-12] MEDS: SODIUM FERRIC GLUC 62.5 MG/5ML IVP PRN (15:39)
[2018-08-14] MEDS: HEPARIN (PORCINE) 1000 UNIT/ML (DIALYSIS) IVP PRN ×2 (13:49)
[2018-08-14] MEDS: LIDOCAINE/SOD BICARB 8.4% SYR SC PRN (13:49)
[2018-08-14] MEDS ORDERED: CALCIUM GLUC 10% 100 MG/ML VL IVPB ONE (14:30)
[2018-08-14] MEDS ORDERED: CALCIUM GLUC(*)10% 100MG/ML VL 2,000 MG in NS(*) 0.9% 100 ML BAG 100 ML IVPB ONE (14:50)
[2018-08-14] MEDS: CALCITRIOL IV PRN (17:10)
[2018-08-17] MEDS: HEPARIN (PORCINE) 1000 UNIT/ML (DIALYSIS) IVP PRN ×2 (14:13→14:14)
[2018-08-17] MEDS: LIDOCAINE/SOD BICARB 8.4% SYR SC PRN (14:14)
[2018-08-17] MEDS ORDERED: CALCIUM GLUC 10% 100 MG/ML VL IVPB ONE (15:05)
[2018-08-17] MEDS ORDERED: NS 0.9% IVPB ONE (15:15)
[2018-08-17] MEDS ORDERED: CALCIUM GLUC IVPB ONE (15:15)
[2018-08-17] MEDS: CALCITRIOL 0.5 MCG CAPSULE PO PRN (15:16)
[2018-08-19] MEDS: LIDOCAINE/SOD BICARB 8.4% SYR SC PRN (14:17)
[2018-08-19] MEDS: HEPARIN (PORCINE) 1000 UNIT/ML (DIALYSIS) IVP PRN ×2 (14:18)
[2018-08-19] MEDS: SODIUM FERRIC GLUC 62.5 MG/5ML IVP PRN (14:49)
[2018-08-19] MEDS ORDERED: CALCIUM GLUC 10% 100 MG/ML VL IVP ONE (15:15)
[2018-08-19] MEDS ORDERED: NS 0.9% IVPB ONE (15:35)
[2018-08-19] MEDS ORDERED: CALCIUM GLUC IVPB ONE (15:35)
[2018-08-19] MEDS: CALCITRIOL 0.5 MCG CAPSULE PO PRN (16:45)
[2018-08-21] MEDS: HEPARIN (PORCINE) 1000 UNIT/ML (DIALYSIS) IVP PRN ×2 (14:08→14:09)
[2018-08-21] MEDS: LIDOCAINE/SOD BICARB 8.4% SYR SC PRN (14:09)
[2018-08-21] MEDS ORDERED: CALCIUM GLUC 10% 100 MG/ML VL IVP ONE (14:45)
[2018-08-21] MEDS: DARBEPOETIN ESRD 25 MCG/ML IVP PRN (14:57)
[2018-08-21] MEDS ORDERED: CALCIUM GLUC IVPB ONE (15:00)
[2018-08-21] MEDS ORDERED: NS 0.9% IVPB ONE (15:00)
[2018-08-21] MEDS ORDERED: [UNRECOGNIZED DRUG - OTHER] IVPB ONE (15:00)
[2018-08-21] MEDS: CALCITRIOL 0.5 MCG CAPSULE PO PRN (15:03)
[2018-08-24] MEDS: HEPARIN (PORCINE) 1000 UNIT/ML (DIALYSIS) IVP PRN ×2 (14:30)
[2018-08-24] MEDS: LIDOCAINE/SOD BICARB 8.4% SYR SC PRN (14:30)
[2018-08-24] MEDS: CALCITRIOL 0.5 MCG CAPSULE PO PRN (15:17)
[2018-08-24] MEDS ORDERED: CALCIUM GLUC 1 GM/NS 100 ML IVPB ONE (15:30)
[2018-08-24] MEDS ORDERED: CALCIUM GLUC 10% 100 MG/ML VL IVPB ONE (15:30)
[2018-08-26] MEDS: HEPARIN (PORCINE) 1000 UNIT/ML (DIALYSIS) IVP PRN ×2 (14:21)
[2018-08-26] MEDS: LIDOCAINE/SOD BICARB 8.4% SYR SC PRN (14:21)
[2018-08-26] MEDS: DIALYSIS ACETAMINOPHEN 325 MG PO PRN (14:45)
[2018-08-26] MEDS ORDERED: CALCIUM GLUC 10% 100 MG/ML VL IVPB ONE (15:05)
[2018-08-26] MEDS: SODIUM FERRIC GLUC 62.5 MG/5ML IVP PRN (15:19)
[2018-08-26] MEDS ORDERED: NS 0.9% IVPB ONE (15:30)
[2018-08-26] MEDS ORDERED: CALCIUM GLUC IVPB ONE (15:30)
[2018-08-26] MEDS: CALCITRIOL 0.5 MCG CAPSULE PO PRN (16:11)
[2018-08-28] MEDS: LIDOCAINE/SOD BICARB 8.4% SYR SC PRN (14:42)
[2018-08-28] MEDS: HEPARIN (PORCINE) 1000 UNIT/ML (DIALYSIS) IVP PRN ×2 (14:43)
[2018-08-28] MEDS ORDERED: CALCIUM GLUC(*)10% 100MG/ML VL 2,000 MG in NS(*) 0.9% 100 ML BAG 100 ML IVPB ONE ×2 (15:30→17:20)
[2018-08-28] MEDS: DARBEPOETIN ESRD 25 MCG/ML IVP PRN (15:41)
[2018-08-28] MEDS: CALCITRIOL 0.5 MCG CAPSULE PO PRN (15:43)
[2018-08-28] MEDS ORDERED: CALCIUM GLUC 10% 100 MG/ML VL IVP ONE (17:15)
[2018-08-31] MEDS: LIDOCAINE/SOD BICARB 8.4% SYR SC PRN (13:24)
[2018-08-31] MEDS: HEPARIN (PORCINE) 1000 UNIT/ML (DIALYSIS) IVP PRN ×2 (13:25)
[2018-08-31] MEDS ORDERED: CALCIUM GLUC 10% 100 MG/ML VL IVPB ONE (14:15)
[2018-08-31] MEDS ORDERED: [UNRECOGNIZED DRUG - OTHER] IVPB ONE (14:30)
[2018-08-31] MEDS ORDERED: NS 0.9% IVPB ONE (14:30)
[2018-08-31] MEDS: CALCITRIOL 0.5 MCG CAPSULE PO PRN (14:33)
[2018-09-02] MEDS: HEPARIN (PORCINE) 1000 UNIT/ML (DIALYSIS) IVP PRN ×2 (11:54)
[2018-09-02] MEDS: LIDOCAINE/SOD BICARB 8.4% SYR SC PRN (11:55)
[2018-09-02] MEDS ORDERED: CALCIUM GLUC 10% 100 MG/ML VL IVPB ONE (12:30)
[2018-09-02] MEDS: SODIUM FERRIC GLUC 62.5 MG/5ML IVP PRN (12:40)
[2018-09-02] MEDS ORDERED: CALCIUM GLUC(*)10% 100MG/ML VL 2,000 MG in NS(*) 0.9% 100 ML BAG 100 ML IVPB ONE (12:40)
[2018-09-02] MEDS: CALCITRIOL 0.5 MCG CAPSULE PO PRN (12:40)
[2018-09-04] MEDS: LIDOCAINE/SOD BICARB 8.4% SYR SC PRN (13:43)
[2018-09-04] MEDS: HEPARIN (PORCINE) 1000 UNIT/ML (DIALYSIS) IVP PRN ×2 (13:43→13:44)
[2018-09-04] MEDS: DARBEPOETIN ESRD 25 MCG/ML IVP PRN (14:30)
[2018-09-04] MEDS: CALCITRIOL 0.5 MCG CAPSULE PO PRN (14:30)
[2018-09-07] MEDS: LIDOCAINE/SOD BICARB 8.4% SYR SC PRN (14:27)
[2018-09-07] MEDS: HEPARIN (PORCINE) 1000 UNIT/ML (DIALYSIS) IVP PRN ×2 (14:28)
[2018-09-07] MEDS: CALCITRIOL 0.5 MCG CAPSULE PO PRN (16:28)
[2018-09-09] MEDS: HEPARIN (PORCINE) 1000 UNIT/ML (DIALYSIS) IVP PRN ×2 (14:32)
[2018-09-09] MEDS: LIDOCAINE/SOD BICARB 8.4% SYR SC PRN (14:32)
[2018-09-09] MEDS: SODIUM FERRIC GLUC 62.5 MG/5ML IVP PRN (14:54)
[2018-09-09 14:55] LABS: PLATELET COUNT, AUTOMATED 223 K/uL (150-450)
[2018-09-09] MEDS: CALCITRIOL 0.5 MCG CAPSULE PO PRN (15:50)
[2018-09-11] MEDS: HEPARIN (PORCINE) 1000 UNIT/ML (DIALYSIS) IVP PRN ×2 (14:32)
[2018-09-11] MEDS: LIDOCAINE/SOD BICARB 8.4% SYR SC PRN (14:33)
[2018-09-11] MEDS: CALCITRIOL 0.5 MCG CAPSULE PO PRN (18:00)
[2018-09-14] MEDS: LIDOCAINE/SOD BICARB 8.4% SYR SC PRN (13:58)
[2018-09-14] MEDS: HEPARIN (PORCINE) 1000 UNIT/ML (DIALYSIS) IVP PRN ×2 (13:58)
[2018-09-14] MEDS: CALCITRIOL 0.5 MCG CAPSULE PO PRN (15:49)
[2018-09-16] MEDS: HEPARIN (PORCINE) 1000 UNIT/ML (DIALYSIS) IVP PRN ×2 (14:32→14:33)
[2018-09-16] MEDS: LIDOCAINE/SOD BICARB 8.4% SYR SC PRN (14:32)
[2018-09-16] MEDS: SODIUM FERRIC GLUC 62.5 MG/5ML IVP PRN (15:10)
[2018-09-16] MEDS: CALCITRIOL 0.5 MCG CAPSULE PO PRN (15:11)
[2018-09-16] MEDS: DIALYSIS ACETAMINOPHEN 325 MG PO PRN (17:32)
[2018-09-16] MEDS: LOPERAMIDE HCL 2 MG CAP PO PRN (17:33)
[2018-09-18] MEDS: LIDOCAINE/SOD BICARB 8.4% SYR SC PRN (14:16)
[2018-09-18] MEDS: HEPARIN (PORCINE) 1000 UNIT/ML (DIALYSIS) IVP PRN ×2 (14:16)
[2018-09-18] MEDS: CALCITRIOL 0.5 MCG CAPSULE PO PRN (14:36)
[2018-09-21] MEDS: LIDOCAINE/SOD BICARB 8.4% SYR SC PRN (08:14)
[2018-09-21] MEDS: HEPARIN (PORCINE) 1000 UNIT/ML (DIALYSIS) IVP PRN ×2 (08:15→08:16)
[2018-09-21] MEDS: CALCITRIOL 0.5 MCG CAPSULE PO PRN (12:01)
[2018-09-23] MEDS: LIDOCAINE/SOD BICARB 8.4% SYR SC PRN (06:12)
[2018-09-23] MEDS: HEPARIN (PORCINE) 1000 UNIT/ML (DIALYSIS) IVP PRN ×2 (06:12)
[2018-09-23] MEDS: SODIUM FERRIC GLUC 62.5 MG/5ML IVP PRN (07:11)
[2018-09-23] MEDS: CALCITRIOL 0.5 MCG CAPSULE PO PRN (07:11)
[2018-09-23 07:31] LABS: PLATELET COUNT, AUTOMATED 201 K/uL (150-450)
[2018-09-25] MEDS: HEPARIN (PORCINE) 1000 UNIT/ML (DIALYSIS) IVP PRN ×2 (06:09→06:10)
[2018-09-25] MEDS: LIDOCAINE/SOD BICARB 8.4% SYR SC PRN (06:10)
[2018-09-25] MEDS: DARBEPOETIN ESRD 25 MCG/ML IVP PRN (07:32)
[2018-09-28] MEDS: HEPARIN (PORCINE) 1000 UNIT/ML (DIALYSIS) IVP PRN ×2 (06:44)
[2018-09-28] MEDS: LIDOCAINE/SOD BICARB 8.4% SYR SC PRN (06:45)
[2018-09-30] MEDS: HEPARIN (PORCINE) 1000 UNIT/ML (DIALYSIS) IVP PRN ×2 (06:16→06:17)
[2018-09-30] MEDS: LOPERAMIDE HCL 2 MG CAP PO PRN (06:16)
[2018-09-30] MEDS: LIDOCAINE/SOD BICARB 8.4% SYR SC PRN (06:16)
[2018-09-30] MEDS: SODIUM FERRIC GLUC 62.5 MG/5ML IVP PRN (07:30)
[2018-09-30] MEDS ORDERED: CALC11776 CHEW ×2 (13:53)
[2018-10-02] MEDS: HEPARIN (PORCINE) 1000 UNIT/ML (DIALYSIS) IVP PRN ×2 (06:12)
[2018-10-02] MEDS: LIDOCAINE/SOD BICARB 8.4% SYR SC PRN (06:12)
[2018-10-02] MEDS: DARBEPOETIN ESRD 25 MCG/ML IVP PRN (07:11)
[2018-10-05] MEDS: HEPARIN (PORCINE) 1000 UNIT/ML (DIALYSIS) IVP PRN ×2 (13:24)
[2018-10-05] MEDS: LIDOCAINE/SOD BICARB 8.4% SYR SC PRN (13:24)
[2018-10-05] MEDS ORDERED: CALCIUM GLUC 10% 100 MG/ML VL IVPB PRN ×2 (14:15→14:20)
[2018-10-05] MEDS ORDERED: CALCIUM GLUC(*)10% 100MG/ML VL 2,000 MG in NS(*) 0.9% 100 ML BAG 100 ML IVPB ONE (14:20)
[2018-10-07] MEDS: LIDOCAINE/SOD BICARB 8.4% SYR SC PRN (06:13)
[2018-10-07] MEDS: HEPARIN (PORCINE) 1000 UNIT/ML (DIALYSIS) IVP PRN ×2 (06:14)
[2018-10-07] MEDS: SODIUM FERRIC GLUC 62.5 MG/5ML IVP PRN (07:40)
[2018-10-07] MEDS ORDERED: CALCIUM GLUC 10% 100 MG/ML VL IVP ONE (08:00)
[2018-10-09] MEDS: LIDOCAINE/SOD BICARB 8.4% SYR SC PRN (15:06)
[2018-10-09] MEDS: HEPARIN (PORCINE) 1000 UNIT/ML (DIALYSIS) IVP PRN ×2 (15:07→15:08)
[2018-10-09] MEDS ORDERED: CALCIUM GLUC 10% 100 MG/ML VL IVPB ONE (15:45)
[2018-10-09] MEDS ORDERED: CALCIUM GLUC 1 GM/NS 100 ML IVPB ONE (16:10)
[2018-10-09] MEDS: CALCITRIOL 0.5 MCG CAPSULE PO PRN (18:19)
[2018-10-12] MEDS: LIDOCAINE/SOD BICARB 8.4% SYR SC PRN (13:48)
[2018-10-12] MEDS: HEPARIN (PORCINE) 1000 UNIT/ML (DIALYSIS) IVP PRN ×2 (13:49)
[2018-10-12] MEDS ORDERED: CALCIUM GLUC 10% 100 MG/ML VL IVPB ONE (14:50)
[2018-10-12] MEDS ORDERED: NS 0.9% IVPB ONE (15:00)
[2018-10-12] MEDS ORDERED: CALCIUM GLUC IVPB ONE (15:00)
[2018-10-12] MEDS: LOPERAMIDE HCL 2 MG CAP PO PRN (15:04)
[2018-10-12] MEDS: CALCITRIOL 0.5 MCG CAPSULE PO PRN (15:04)
[2018-10-14] MEDS: HEPARIN (PORCINE) 1000 UNIT/ML (DIALYSIS) IVP PRN ×2 (13:51→13:52)
[2018-10-14] MEDS: LIDOCAINE/SOD BICARB 8.4% SYR SC PRN (13:52)
[2018-10-14] MEDS: CALCITRIOL 0.5 MCG CAPSULE PO PRN (14:17)
[2018-10-14] MEDS: SODIUM FERRIC GLUC 62.5 MG/5ML IVP PRN (14:18)
[2018-10-14] MEDS ORDERED: CALCIUM GLUC 10% 100 MG/ML VL IVPB ONE (14:45)
[2018-10-14] MEDS: LOPERAMIDE HCL 2 MG CAP PO PRN (15:10)
[2018-10-14] MEDS ORDERED: CALCIUM GLUC(*)10% 100MG/ML VL 2,000 MG in NS(*) 0.9% 100 ML BAG 100 ML IVPB ONE (15:20)
[2018-10-16] MEDS: LIDOCAINE/SOD BICARB 8.4% SYR SC PRN (14:13)
[2018-10-16] MEDS: HEPARIN (PORCINE) 1000 UNIT/ML (DIALYSIS) IVP PRN ×2 (14:13)
[2018-10-16] MEDS: CALCITRIOL 0.5 MCG CAPSULE PO PRN (15:41)
[2018-10-16] MEDS: CALCIUM GLUC(*)10% 100MG/ML VL 2,000 MG in NS(*) 0.9% 100 ML BAG 100 ML IVPB PRN (16:22)
[2018-10-19] MEDS: LIDOCAINE/SOD BICARB 8.4% SYR SC PRN (14:10)
[2018-10-19] MEDS: HEPARIN (PORCINE) 1000 UNIT/ML (DIALYSIS) IVP PRN ×2 (14:10)
[2018-10-19] MEDS: CALCITRIOL 0.5 MCG CAPSULE PO PRN (15:01)
[2018-10-19] MEDS: CALCIUM GLUC(*)10% 100MG/ML VL 2,000 MG in NS(*) 0.9% 100 ML BAG 100 ML IVPB PRN ×2 (15:01→16:26)
[2018-10-21] MEDS: HEPARIN (PORCINE) 1000 UNIT/ML (DIALYSIS) IVP PRN ×2 (14:13)
[2018-10-21] MEDS: LIDOCAINE/SOD BICARB 8.4% SYR SC PRN (14:14)
[2018-10-21] MEDS: SODIUM FERRIC GLUC 62.5 MG/5ML IVP PRN (14:41)
[2018-10-21] MEDS: CALCITRIOL 0.5 MCG CAPSULE PO PRN (14:42)
[2018-10-23] MEDS: LIDOCAINE/SOD BICARB 8.4% SYR SC PRN (14:22)
[2018-10-23] MEDS: HEPARIN (PORCINE) 1000 UNIT/ML (DIALYSIS) IVP PRN ×2 (14:22)
[2018-10-23] MEDS: DARBEPOETIN ESRD 25 MCG/ML IVP PRN (16:45)
[2018-10-23] MEDS: CALCITRIOL 0.5 MCG CAPSULE PO PRN (18:29)
[2018-10-26] MEDS: LIDOCAINE/SOD BICARB 8.4% SYR SC PRN (14:11)
[2018-10-26] MEDS: HEPARIN (PORCINE) 1000 UNIT/ML (DIALYSIS) IVP PRN ×2 (14:11→14:12)
[2018-10-26] MEDS: CALCITRIOL 0.5 MCG CAPSULE PO PRN (14:18)
[2018-10-28] MEDS: HEPARIN (PORCINE) 1000 UNIT/ML (DIALYSIS) IVP PRN ×2 (14:28→14:29)
[2018-10-28] MEDS: LIDOCAINE/SOD BICARB 8.4% SYR SC PRN (14:28)
[2018-10-28] MEDS: SODIUM FERRIC GLUC 62.5 MG/5ML IVP PRN (14:50)
[2018-10-28] MEDS: CALCITRIOL 0.5 MCG CAPSULE PO PRN (14:50)
[2018-10-30] MEDS: HEPARIN (PORCINE) 1000 UNIT/ML (DIALYSIS) IVP PRN ×2 (14:28→14:29)
[2018-10-30] MEDS: LIDOCAINE/SOD BICARB 8.4% SYR SC PRN (14:32)
[2018-10-30] MEDS: DARBEPOETIN ESRD 25 MCG/ML IVP PRN (15:04)
[2018-10-30] MEDS: CALCITRIOL 0.5 MCG CAPSULE PO PRN (15:04)
[2018-11-02] MEDS: HEPARIN (PORCINE) 1000 UNIT/ML (DIALYSIS) IVP PRN ×2 (14:28)
[2018-11-02] MEDS: LIDOCAINE/SOD BICARB 8.4% SYR SC PRN (14:28)
[2018-11-02] MEDS: CALCITRIOL 0.5 MCG CAPSULE PO PRN (14:32)
[2018-11-04] MEDS: HEPARIN (PORCINE) 1000 UNIT/ML (DIALYSIS) IVP PRN ×2 (14:57)
[2018-11-04] MEDS: LIDOCAINE/SOD BICARB 8.4% SYR SC PRN (14:57)
[2018-11-04] MEDS: CALCITRIOL 0.5 MCG CAPSULE PO PRN (16:02)
[2018-11-04] MEDS: SODIUM FERRIC GLUC 62.5 MG/5ML IVP PRN (16:02)
[2018-11-04 17:28] LABS: PLATELET COUNT, AUTOMATED 238 K/uL (150-450)
[2018-11-06] MEDS: LIDOCAINE/SOD BICARB 8.4% SYR SC PRN (15:13)
[2018-11-06] MEDS: HEPARIN (PORCINE) 1000 UNIT/ML (DIALYSIS) IVP PRN ×2 (15:14)
[2018-11-06] MEDS: DARBEPOETIN ESRD 25 MCG/ML IVP PRN (16:04)
[2018-11-06] MEDS: CALCITRIOL 0.5 MCG CAPSULE PO PRN (16:06)
[2018-11-09] MEDS: LIDOCAINE/SOD BICARB 8.4% SYR SC PRN (14:40)
[2018-11-09] MEDS: HEPARIN (PORCINE) 1000 UNIT/ML (DIALYSIS) IVP PRN ×2 (14:40)
[2018-11-09] MEDS: CALCITRIOL 0.5 MCG CAPSULE PO PRN (18:58)
[2018-11-11] MEDS: LIDOCAINE/SOD BICARB 8.4% SYR SC PRN (14:28)
[2018-11-11] MEDS: HEPARIN (PORCINE) 1000 UNIT/ML (DIALYSIS) IVP PRN ×2 (14:29)
[2018-11-11] MEDS: SODIUM FERRIC GLUC 62.5 MG/5ML IVP PRN (15:48)
[2018-11-13] MEDS: LIDOCAINE/SOD BICARB 8.4% SYR SC PRN (14:09)
[2018-11-13] MEDS: HEPARIN (PORCINE) 1000 UNIT/ML (DIALYSIS) IVP PRN ×2 (14:09)
[2018-11-13] MEDS: DARBEPOETIN ESRD 25 MCG/ML IVP PRN (15:55)
[2018-11-16] MEDS: LIDOCAINE/SOD BICARB 8.4% SYR SC PRN (13:55)
[2018-11-16] MEDS: HEPARIN (PORCINE) 1000 UNIT/ML (DIALYSIS) IVP PRN ×2 (13:55)
[2018-11-18] MEDS: HEPARIN (PORCINE) 1000 UNIT/ML (DIALYSIS) IVP PRN ×2 (14:35→14:36)
[2018-11-18] MEDS: LIDOCAINE/SOD BICARB 8.4% SYR SC PRN (14:35)
[2018-11-18] MEDS: SODIUM FERRIC GLUC 62.5 MG/5ML IVP PRN (15:41)
[2018-11-20] MEDS: HEPARIN (PORCINE) 1000 UNIT/ML (DIALYSIS) IVP PRN ×2 (13:58)
[2018-11-20] MEDS: LIDOCAINE/SOD BICARB 8.4% SYR SC PRN (13:58)
[2018-11-25] MEDS: HEPARIN (PORCINE) 1000 UNIT/ML (DIALYSIS) IVP PRN ×2 (14:36)
[2018-11-25] MEDS: LIDOCAINE/SOD BICARB 8.4% SYR SC PRN (14:36)
[2018-11-25] MEDS: SODIUM FERRIC GLUC 62.5 MG/5ML IVP PRN (14:54)
[2018-11-25] MEDS ORDERED: CALCIUM GLUC 10% 100 MG/ML VL IVPB ONE (16:10)
[2018-11-25] MEDS ORDERED: CALCIUM GLUC(*)10% 100MG/ML VL 2,000 MG in NS(*) 0.9% 100 ML BAG 100 ML IVPB ONE (16:30)
[2018-11-27] MEDS: HEPARIN (PORCINE) 1000 UNIT/ML (DIALYSIS) IVP PRN ×2 (14:23→14:24)
[2018-11-27] MEDS: LIDOCAINE/SOD BICARB 8.4% SYR SC PRN (14:23)
[2018-11-27] MEDS: DARBEPOETIN ESRD 25 MCG/ML IVP PRN (14:42)
[2018-11-30] MEDS: HEPARIN (PORCINE) 1000 UNIT/ML (DIALYSIS) IVP PRN ×2 (14:07→14:08)
[2018-11-30] MEDS: LIDOCAINE/SOD BICARB 8.4% SYR SC PRN (14:08)
[2018-11-30] MEDS ORDERED: CALC400T65 PO (16:18)
[2018-11-30] MEDS: CALCIUM GLUC(*)10% 100MG/ML VL 2,000 MG in NS(*) 0.9% 100 ML BAG 100 ML IVPB PRN (16:23)
[2018-12-02] MEDS: HEPARIN (PORCINE) 1000 UNIT/ML (DIALYSIS) IVP PRN ×2 (14:32→14:33)
[2018-12-02] MEDS: LIDOCAINE/SOD BICARB 8.4% SYR SC PRN (14:32)
[2018-12-02] MEDS: SODIUM FERRIC GLUC 62.5 MG/5ML IVP PRN (15:38)
[2018-12-04] MEDS: LIDOCAINE/SOD BICARB 8.4% SYR SC PRN (14:14)
[2018-12-04] MEDS: HEPARIN (PORCINE) 1000 UNIT/ML (DIALYSIS) IVP PRN ×2 (14:14→14:15)
[2018-12-04] MEDS: LOPERAMIDE HCL 2 MG CAP PO PRN (14:17)
[2018-12-04 14:28] LABS: PLATELET COUNT, AUTOMATED 227 K/uL (150-450)
[2018-12-04] MEDS ORDERED: PROM-110 PO (19:35)
[2018-12-07] MEDS: LIDOCAINE/SOD BICARB 8.4% SYR SC PRN (14:18)
[2018-12-07] MEDS: HEPARIN (PORCINE) 1000 UNIT/ML (DIALYSIS) IVP PRN ×2 (14:18)
[2018-12-09] MEDS: LIDOCAINE/SOD BICARB 8.4% SYR SC PRN (13:53)
[2018-12-09] MEDS: HEPARIN (PORCINE) 1000 UNIT/ML (DIALYSIS) IVP PRN ×2 (13:54→13:55)
[2018-12-09] MEDS: SODIUM FERRIC GLUC 62.5 MG/5ML IVP PRN (14:44)
[2018-12-11] MEDS: HEPARIN (PORCINE) 1000 UNIT/ML (DIALYSIS) IVP PRN ×2 (13:42→13:43)
[2018-12-11] MEDS: DARBEPOETIN ESRD 25 MCG/ML IVP PRN (14:19)
[2018-12-14] MEDS: HEPARIN (PORCINE) 1000 UNIT/ML (DIALYSIS) IVP PRN ×2 (13:59)
[2018-12-14] MEDS: LIDOCAINE/SOD BICARB 8.4% SYR SC PRN (13:59)
[2018-12-16] MEDS: HEPARIN (PORCINE) 1000 UNIT/ML (DIALYSIS) IVP PRN ×2 (14:04)
[2018-12-16] MEDS: LIDOCAINE/SOD BICARB 8.4% SYR SC PRN (14:04)
[2018-12-16] MEDS: SODIUM FERRIC GLUC 62.5 MG/5ML IVP PRN (14:42)
[2018-12-16] MEDS: DIALYSIS ACETAMINOPHEN 325 MG PO PRN (17:12)
[2018-12-18] MEDS: LIDOCAINE/SOD BICARB 8.4% SYR SC PRN (14:09)
[2018-12-18] MEDS: HEPARIN (PORCINE) 1000 UNIT/ML (DIALYSIS) IVP PRN ×2 (14:09)
[2018-12-18] MEDS: PROMETHAZINE HCL 25 MG TAB PO PRN (14:35)
[2018-12-21] MEDS: LIDOCAINE/SOD BICARB 8.4% SYR SC PRN (14:24)
[2018-12-21] MEDS: HEPARIN (PORCINE) 1000 UNIT/ML (DIALYSIS) IVP PRN ×2 (14:24)
[2018-12-23] MEDS: HEPARIN (PORCINE) 1000 UNIT/ML (DIALYSIS) IVP PRN ×2 (15:06)
[2018-12-23] MEDS: LIDOCAINE/SOD BICARB 8.4% SYR SC PRN (15:07)
[2018-12-23] MEDS: SODIUM FERRIC GLUC 62.5 MG/5ML IVP PRN (15:17)
[2018-12-23] MEDS: DIALYSIS ACETAMINOPHEN 325 MG PO PRN (15:17)
[2018-12-23 15:55] LABS: PLATELET COUNT, AUTOMATED 221 K/uL (150-450)
[2018-12-25] MEDS: HEPARIN (PORCINE) 1000 UNIT/ML (DIALYSIS) IVP PRN ×2 (14:12→14:13)
[2018-12-25] MEDS: LIDOCAINE/SOD BICARB 8.4% SYR SC PRN (14:13)
[2018-12-28] MEDS: LIDOCAINE/SOD BICARB 8.4% SYR SC PRN (14:37)
[2018-12-28] MEDS: LOPERAMIDE HCL 2 MG CAP PO PRN (14:37)
[2018-12-28] MEDS: HEPARIN (PORCINE) 1000 UNIT/ML (DIALYSIS) IVP PRN ×2 (14:37)
[2018-12-30] MEDS: HEPARIN (PORCINE) 1000 UNIT/ML (DIALYSIS) IVP PRN ×2 (14:13)
[2018-12-30] MEDS: LIDOCAINE/SOD BICARB 8.4% SYR SC PRN (14:14)
[2018-12-30] MEDS: SODIUM FERRIC GLUC 62.5 MG/5ML IVP PRN (15:20)
[2019-01-04] MEDS: HEPARIN (PORCINE) 1000 UNIT/ML (DIALYSIS) IVP PRN ×2 (14:09)
[2019-01-04] MEDS: LIDOCAINE/SOD BICARB 8.4% SYR SC PRN (14:10)
[2019-01-06] MEDS: LIDOCAINE/SOD BICARB 8.4% SYR SC PRN (14:33)
[2019-01-06] MEDS: HEPARIN (PORCINE) 1000 UNIT/ML (DIALYSIS) IVP PRN ×2 (14:33)
[2019-01-06] MEDS: SODIUM FERRIC GLUC 62.5 MG/5ML IVP PRN (14:50)
[2019-01-08] MEDS: LIDOCAINE/SOD BICARB 8.4% SYR SC PRN ×2 (14:27→14:37)
[2019-01-08] MEDS: HEPARIN (PORCINE) 1000 UNIT/ML (DIALYSIS) IVP PRN ×2 (14:27)
[2019-01-08] MEDS: DARBEPOETIN ESRD 40MCG/ML IVP PRN (16:14)
[2019-01-11] MEDS: LIDOCAINE/SOD BICARB 8.4% SYR SC PRN (14:29)
[2019-01-11] MEDS: HEPARIN (PORCINE) 1000 UNIT/ML (DIALYSIS) IVP PRN ×2 (14:29→14:30)
[2019-01-13] MEDS: HEPARIN (PORCINE) 1000 UNIT/ML (DIALYSIS) IVP PRN ×2 (14:41)
[2019-01-13] MEDS: LIDOCAINE/SOD BICARB 8.4% SYR SC PRN (14:41)
[2019-01-13] MEDS: SODIUM FERRIC GLUC 62.5 MG/5ML IVP PRN (16:12)
[2019-01-15] MEDS: HEPARIN (PORCINE) 1000 UNIT/ML (DIALYSIS) IVP PRN ×4 (14:25→14:51)
[2019-01-15] MEDS: LIDOCAINE/SOD BICARB 8.4% SYR SC PRN ×2 (14:25→14:51)
[2019-01-20] MEDS: HEPARIN (PORCINE) 1000 UNIT/ML (DIALYSIS) IVP PRN ×2 (14:12)
[2019-01-20] MEDS: LIDOCAINE/SOD BICARB 8.4% SYR SC PRN (14:13)
[2019-01-20] MEDS: SODIUM FERRIC GLUC 62.5 MG/5ML IVP PRN (14:29)
[2019-01-22] MEDS: HEPARIN (PORCINE) 1000 UNIT/ML (DIALYSIS) IVP PRN ×2 (15:31)
[2019-01-22] MEDS: LIDOCAINE/SOD BICARB 8.4% SYR SC PRN (15:31)
[2019-01-22] MEDS: DARBEPOETIN ESRD 40MCG/ML IVP PRN (15:48)
[2019-01-25] MEDS: LIDOCAINE/SOD BICARB 8.4% SYR SC PRN (14:36)
[2019-01-25] MEDS: HEPARIN (PORCINE) 1000 UNIT/ML (DIALYSIS) IVP PRN ×2 (14:36→14:37)
[2019-01-25] MEDS ORDERED: CALCIUM GLUC(*)10% 100MG/ML VL 2,000 MG in NS(*) 0.9% 100 ML BAG 100 ML IVPB ONE (16:50)
[2019-01-25] MEDS: CALCIUM GLUC(*)10% 100MG/ML VL 2,000 MG in NS(*) 0.9% 100 ML BAG 100 ML IVPB PRN (16:53)
[2019-02-01] MEDS: HEPARIN (PORCINE) 1000 UNIT/ML (DIALYSIS) IVP PRN ×2 (14:09)
[2019-02-01] MEDS: LIDOCAINE/SOD BICARB 8.4% SYR SC PRN (14:10)
[2019-02-01] MEDS: PROMETHAZINE HCL 25 MG TAB PO PRN (14:24)
[2019-02-03] MEDS: HEPARIN (PORCINE) 1000 UNIT/ML (DIALYSIS) IVP PRN ×2 (14:45)
[2019-02-03] MEDS: LIDOCAINE/SOD BICARB 8.4% SYR SC PRN (14:46)
[2019-02-03] MEDS: SODIUM FERRIC GLUC 62.5 MG/5ML IVP PRN (14:58)
[2019-02-05] MEDS: LIDOCAINE/SOD BICARB 8.4% SYR SC PRN (14:12)
[2019-02-05] MEDS: HEPARIN (PORCINE) 1000 UNIT/ML (DIALYSIS) IVP PRN ×2 (14:12)
[2019-02-05] MEDS: LOPERAMIDE HCL 2 MG CAP PO PRN (14:32)
[2019-02-07] MEDS ORDERED: FLUO40CA76 PO (10:53)
[2019-02-07] MEDS ORDERED: PRED50TA22 PO (12:04)
[2019-02-08] MEDS: HEPARIN (PORCINE) 1000 UNIT/ML (DIALYSIS) IVP PRN ×2 (15:46)
[2019-02-08] MEDS: LIDOCAINE/SOD BICARB 8.4% SYR SC PRN (15:46)
[2019-02-10] MEDS: LIDOCAINE/SOD BICARB 8.4% SYR SC PRN (15:49)
[2019-02-10] MEDS: HEPARIN (PORCINE) 1000 UNIT/ML (DIALYSIS) IVP PRN ×2 (15:49)
[2019-02-10] MEDS: SODIUM FERRIC GLUC 62.5 MG/5ML IVP PRN (16:09)
[2019-02-10 16:29] LABS: PLATELET COUNT, AUTOMATED 245 K/uL (150-450)
[2019-02-12] MEDS: HEPARIN (PORCINE) 1000 UNIT/ML (DIALYSIS) IVP PRN ×2 (15:19→15:20)
[2019-02-12] MEDS: LIDOCAINE/SOD BICARB 8.4% SYR SC PRN (15:25)
[2019-02-12] MEDS: DARBEPOETIN ESRD 40MCG/ML IVP PRN (15:41)
[2019-02-15] MEDS: LIDOCAINE/SOD BICARB 8.4% SYR SC PRN (15:43)
[2019-02-15] MEDS: HEPARIN (PORCINE) 1000 UNIT/ML (DIALYSIS) IVP PRN ×2 (15:44)
[2019-02-17] MEDS: HEPARIN (PORCINE) 1000 UNIT/ML (DIALYSIS) IVP PRN ×2 (14:17)
[2019-02-17] MEDS: LIDOCAINE/SOD BICARB 8.4% SYR SC PRN (14:18)
[2019-02-17] MEDS: SODIUM FERRIC GLUC 62.5 MG/5ML IVP PRN (14:40)
[2019-02-19] MEDS: HEPARIN (PORCINE) 1000 UNIT/ML (DIALYSIS) IVP PRN ×2 (07:33)
[2019-02-19] MEDS: LIDOCAINE/SOD BICARB 8.4% SYR SC PRN (07:33)
[2019-02-19] MEDS: DARBEPOETIN ESRD 40MCG/ML IVP PRN (07:49)
[2019-02-22] MEDS: HEPARIN (PORCINE) 1000 UNIT/ML (DIALYSIS) IVP PRN ×2 (15:52→15:53)
[2019-02-22] MEDS: LIDOCAINE/SOD BICARB 8.4% SYR SC PRN (15:53)
[2019-02-22] MEDS: LOPERAMIDE HCL 2 MG CAP PO PRN (16:03)
[2019-02-24] MEDS: LIDOCAINE/SOD BICARB 8.4% SYR SC PRN (15:43)
[2019-02-24] MEDS: HEPARIN (PORCINE) 1000 UNIT/ML (DIALYSIS) IVP PRN ×2 (15:43)
[2019-02-24] MEDS: SODIUM FERRIC GLUC 62.5 MG/5ML IVP PRN (16:45)
[2019-02-26] MEDS: LIDOCAINE/SOD BICARB 8.4% SYR SC PRN (15:50)
[2019-02-26] MEDS: HEPARIN (PORCINE) 1000 UNIT/ML (DIALYSIS) IVP PRN ×2 (15:51)
[2019-02-26] MEDS: DARBEPOETIN ESRD 40MCG/ML IVP PRN (17:01)
[2019-03-01] MEDS: LIDOCAINE/SOD BICARB 8.4% SYR SC PRN (15:53)
[2019-03-01] MEDS: HEPARIN (PORCINE) 1000 UNIT/ML (DIALYSIS) IVP PRN ×2 (15:53)
[2019-03-03] MEDS ORDERED: PRED20TA6 PO (04:54)
[2019-03-03] MEDS: HEPARIN (PORCINE) 1000 UNIT/ML (DIALYSIS) IVP PRN ×2 (15:49→15:50)
[2019-03-03] MEDS: LIDOCAINE/SOD BICARB 8.4% SYR SC PRN (15:50)
[2019-03-03] MEDS: SODIUM FERRIC GLUC 62.5 MG/5ML IVP PRN (16:07)
[2019-03-03 17:11] LABS: PLATELET COUNT, AUTOMATED 205 K/uL (150-450)
[2019-03-05] MEDS: HEPARIN (PORCINE) 1000 UNIT/ML (DIALYSIS) IVP PRN ×2 (15:59)
[2019-03-05] MEDS: LIDOCAINE/SOD BICARB 8.4% SYR SC PRN (15:59)
[2019-03-08] MEDS: LIDOCAINE/SOD BICARB 8.4% SYR SC PRN (15:48)
[2019-03-08] MEDS: HEPARIN (PORCINE) 1000 UNIT/ML (DIALYSIS) IVP PRN ×2 (15:48)
[2019-03-10] MEDS: LIDOCAINE/SOD BICARB 8.4% SYR SC PRN (15:37)
[2019-03-10] MEDS: HEPARIN (PORCINE) 1000 UNIT/ML (DIALYSIS) IVP PRN ×2 (15:37)
[2019-03-10] MEDS: SODIUM FERRIC GLUC 62.5 MG/5ML IVP PRN (15:58)
[2019-03-12] MEDS ORDERED: DARBEPOETIN ESRD 25 MCG/ML IVP PRN (15:30)
[2019-03-12] MEDS: HEPARIN (PORCINE) 1000 UNIT/ML (DIALYSIS) IVP PRN ×2 (15:40→15:41)
[2019-03-12] MEDS: LIDOCAINE/SOD BICARB 8.4% SYR SC PRN (15:42)
== END 2019-03-20 ==
LOC: DIAL 10:14
PROVIDERS: ATTEND Internal Medicine Nephrology
DX: I12.0 Hypertensive chronic kidney disease with stage 5 chronic kidney disease or end stage renal disease (principal); N18.6 End stage renal disease; N25.81 Secondary hyperparathyroidism of renal origin; Z99.2 Dependence on renal dialysis; Z94.0 Kidney transplant status; E87.6 Hypokalemia; F31.9 Bipolar disorder, unspecified; G93.41 Metabolic encephalopathy; R56.9 Unspecified convulsions; F90.9 Attention-deficit hyperactivity disorder, unspecified type; D63.1 Anemia in chronic kidney disease; K21.9 Gastro-esophageal reflux disease without esophagitis
CPT/HCPCS: 82040; 82108; 82247; 82306; 82310; 82374; 82465; 82565; 82728; 82947; 83540; 83550; 83970; 84075; 84100; 84132; 84295; 84460; 84478; 84520; 84703; 85018; 85025; 86580; 86706; 87340; 90999; A4657; A9270; G0472; J0610; J0882; J2916; J3490; J7050; Q0169; 82330; 86803

== ENCOUNTER 2018-09-24 06:44 | Emergency (ER) | payer MEDICARE, MEDICAID ==
[2016-01-11 12:26] VITALS: Wt 70.3 kg
[~2018-09-24 06:44] MED LIST changes: +CALC-488 PO; -CALC-743 PO; -CALC667T PO; +CALC667T3 PO; -CALCIUM GLUC 1 GM/NS 100 ML IVPB PRN; -CALCIUM GLUC 10% 100 MG/ML VL IVP PRN; +CHOL500062 PO; -DARBEPOETIN ESRD 100 MCG/0.5ML SYR IVP PRN; +RANI-366 PO; -RANI-54 PO; -diphenhydr DIALYSIS 50 MG/ML IVP PRN
[2018-09-24] MEDS ORDERED: ONDANSETRON 4 MG ODT TABDP SL ONE (07:20)
--- NOTE | 2018-09-24 07:47 | ER Report ---
History and Physical Time Seen By MD: 07:00 Hx. of Stated Complaint: PT NOT FEELING WELL, VOMITED ONCE LAST NIGHT, IS LIGHTHEADED. HAD DIALYSIS YESTERDAY HPI/ROS Presents to the emergency department complaining of nausea for the past 2-3 days. Still able to take by mouth including sausage and cheetos early this morning. Continue dialysis yesterday without any problems. Drinking a hot tea in her room. Denies abdominal pain. Allergies: Coded Allergies: Cephalosporins (Verified Allergy, Unknown, RASH, 06/30/18) cefixime (Verified Allergy, Unknown, RASH, 06/30/18) ceftazidime (Verified Allergy, Unknown, HIVES, 06/30/18) cephalexin (Verified Allergy, Unknown, RASH, 06/30/18) gluten (Verified Allergy, Unknown, 06/30/18) nystatin (Verified Allergy, Unknown, HIVES, 06/30/18) Gadolinium-Containing Contrast Medi (Verified Adverse Reaction, Unknown, 06/30/18) ESRD Home Meds Active Scripts Promethazine Hcl (PROMETHAZINE HCL) 25 Mg Tablet, 25 MG PO Q4H PRN for NAUSEA/VOMITING, #20 TAB Prov:KIMBERLI ELIZONDO DO 01/21/18 Reported Medications Calcium Carbonate (Tums Ultra Strength) 1,177 Mg Tab.chew, 3000 MG PO TIDCF 3000 3 times a day with meals 03/02/18 Olanzapine (ZYPREXA) 15 Mg Tablet, 15 MG PO QDAY take pre dialysis 03/02/18 Levetiracetam (LEVETIRACETAM) 500 Mg Tab.er.24h, 500 MG PO QDAY, TAB 01/21/18 Olanzapine (OLANZAPINE) 2.5 Mg Tablet, 2.5 MG PO mon,wed,fri 06/23/17 Ranitidine Hcl (ZANTAC) 150 Mg Tablet, 150 MG PO BID, TAB 06/07/17 Fluoxetine Hcl (PROZAC) 20 Mg Capsule, 20 MG PO QDAY, CAPSULE 06/04/17 Guanfacine Hcl (INTUNIV) 2 Mg Tab.er.24h, 2 MG PO DAILY 05/15/17 Albuterol Sulfate (VENTOLIN HFA) 18 Gm Inh, 1-2 PUFF INH 3-4XD, INH 05/09/17 Diphenhydramine Hcl (BENADRYL) 25 Mg Capsule, 50 MG PO BID PRN for ANXIETY, CAPSULE 01/04/15 Folic Acid/Vitamin B Comp W-C (RENAL CAPS SOFTGEL) 1 Mg Capsule, 1 MG PO DAILY, CAPSULE 08/10/14 Melatonin (MELATONIN) 3 Mg Tablet.er, 6 MG PO QHS PRN for SLEEP TAKE 6 MG (2 TABS) AT BEDTIME NEEDED FOR SLEEP 11/08/13 Discontinued Reported Medications Calcium Carbonate (CALCIUM CARBONATE) 500 Mg Tablet, 3000 MG PO QHS 07/15/18 Cholecalciferol (Vitamin D3) (Vitamin D3) 5,000 Unit Tab.rapdis, 5000 INTLU PO BID 07/31/18 Calcitriol (CALCITRIOL) 0.5 Mcg Capsule, 1 MCG PO BID, CAPSULE 06/29/18 Hx Smoking: No Smoking Status: Never Smoker Exposure to Second Hand Smoke?: No Hx Substance Use Disorder: No Hx Alcohol Use: No Constitutional Vital Sign - Last 24 Hours 09/24/18 09/24/18 09/24/18 09/24/18 06:52 07:00 07:53 08:00 Temp 98.3 Pulse 83 81 Resp 16 B/P (MAP) 156/113 151/116 (128) 151/101 (118) Pulse Ox 93 92 O2 Delivery Room Air 09/24/18 08:30 B/P (MAP) 172/104 (126) Physical Exam General Appearance: The patient is alert, has no immediate need for airway protection and no current signs of toxicity. Eyes: Pupils equal and round no injection. Respiratory: Chest is non tender, lungs are clear to auscultation. Cardiac: regular rate and rhythm Gastrointestinal: Abdomen is soft and non tender, no masses, bowel sounds normal. Neck: Neck is supple and non tender. Skin: Mild erythema at the right forearm in an area outlined by where tape was placed for dialysis Medical Decision Making ED Course/Re-evaluation ED Course Benign abdominal physical exam. No abdominal pain. No fever/chills. Complains of nausea only for 1-2 days, but still able to take PO. Went to dialysis yesterday without issues. Was taking PO prior to presenting to the ED, but given Zofran and symptoms have improved. Has Zofran at home if needed. No imaging or lab work needed. Decision to Disposition Date: Sep 24, 2018 Decision to Disposition Time: 08:28 Depart Departure Latest Vital Signs Vital Signs Date Time Temp Pulse Resp B/P (MAP) Pulse Ox O2 Delivery O2 Flow Rate FiO2 09/24/18 08:30 172/104 (126) 09/24/18 07:00 81 92 09/24/18 06:52 98.3 16 Room Air Impression: Primary Impression: Nausea Condition: Improved Disposition: HOME OR SELF-CARE Referrals: THOM HOLLISN MD (PCP) Patient Instructions: Acute Nausea and Vomiting (ED) SHEN PUGA MD Sep 24, 2018 07:47
[2018-09-24] MEDS ORDERED: diphenhydrAMINE 25 MG CAP PO ONE (08:15)
[2018-09-24 08:30] VITALS: BP 172/104
== END 2018-09-24 08:37 | disposition home or self-care (01) ==
LOC: ER 07:48
DX: R11.0 Nausea (principal); Z99.2 Dependence on renal dialysis
CPT/HCPCS: 99283; Q0162; Q0163; S0119

== ENCOUNTER 2018-12-04 18:14 | Emergency (ER) | payer MEDICARE, MEDICAID ==
[2016-01-11 12:26] VITALS: BMI 21.8
[~2018-12-04 18:14] MED LIST changes: +CALC11776 CHEW; +CALC400T65 PO
--- NOTE | 2018-12-04 18:16 | ER Report ---
History and Physical Time Seen By MD: 18:16 HPI/ROS CHIEF COMPLAINT: Headache, hypertension HISTORY OF PRESENT ILLNESS: 23-year-old female on hemodialysis presents after dialysis with headache, dizziness and elevated blood pressure. She documents her blood pressure at 178/130 approximately. Patient does not any hypertensive medication at this time. Patient denies runny nose, sore throat or cough. She denies photophobia or stiff neck. Patient does note some nausea but no vomiting. REVIEW OF SYSTEMS: Respiratory: No cough, no dyspnea. Cardiovascular: No chest pain, no palpitations. Gastrointestinal: No vomiting, no abdominal pain. Musculoskeletal: No back pain. Allergies: Coded Allergies: Cephalosporins (Verified Allergy, Unknown, RASH, 12/04/18) cefixime (Verified Allergy, Unknown, RASH, 12/04/18) ceftazidime (Verified Allergy, Unknown, HIVES, 12/04/18) cephalexin (Verified Allergy, Unknown, RASH, 12/04/18) gluten (Verified Allergy, Unknown, 12/04/18) nystatin (Verified Allergy, Unknown, HIVES, 12/04/18) Gadolinium-Containing Contrast Medi (Verified Adverse Reaction, Unknown, 12/04/18) ESRD Home Meds Active Scripts Promethazine Hcl (PROMETHAZINE HCL) 25 Mg Tablet, 25 MG PO Q4H PRN for NAUSEA/VOMITING, #30 TAB Prov:KIMBERLI ELIZONDO DO 12/04/18 Promethazine Hcl (PROMETHAZINE HCL) 25 Mg Tablet, 25 MG PO Q4H PRN for NAUSEA/VOMITING, #20 TAB Prov:KIMBERLI ELIZONDO DO 01/21/18 Reported Medications Calcium Carbonate (TUMS ULTRA) 400 Mg Tab.chew, 4000 MG PO QHS, TAB.CHEW 11/30/18 Calcium Carbonate (Tums Ultra Strength) 1,177 Mg Tab.chew, 4000 MG CHEW TIDCF 09/30/18 Olanzapine (ZYPREXA) 15 Mg Tablet, 15 MG PO QDAY take pre dialysis 03/02/18 Levetiracetam (LEVETIRACETAM) 500 Mg Tab.er.24h, 500 MG PO QDAY, TAB 01/21/18 Olanzapine (OLANZAPINE) 2.5 Mg Tablet, 2.5 MG PO mon,wed,fri 06/23/17 Ranitidine Hcl (ZANTAC) 150 Mg Tablet, 150 MG PO BID, TAB 06/07/17 Fluoxetine Hcl (PROZAC) 20 Mg Capsule, 20 MG PO QDAY, CAPSULE 06/04/17 Guanfacine Hcl (INTUNIV) 2 Mg Tab.er.24h, 2 MG PO DAILY 05/15/17 Albuterol Sulfate (VENTOLIN HFA) 18 Gm Inh, 1-2 PUFF INH 3-4XD, INH 05/09/17 Diphenhydramine Hcl (BENADRYL) 25 Mg Capsule, 50 MG PO BID PRN for ANXIETY, CAPSULE 01/04/15 Folic Acid/Vitamin B Comp W-C (RENAL CAPS SOFTGEL) 1 Mg Capsule, 1 MG PO DAILY, CAPSULE 08/10/14 Melatonin (MELATONIN) 3 Mg Tablet.er, 6 MG PO QHS PRN for SLEEP TAKE 6 MG (2 TABS) AT BEDTIME NEEDED FOR SLEEP 11/08/13 Past Medical/Surgical History Past medical history for end-stage renal disease on hemodialysis Wednesdays and Fridays. She is status post multiple failed renal transplants. History of asthma. History of encephalitis. Reviewed Nurses Notes: Yes Old Medical Records Reviewed: Yes Hx Smoking: No Smoking Status: Never Smoker Exposure to Second Hand Smoke?: No Hx Substance Use Disorder: No Hx Alcohol Use: No Constitutional Vital Sign - Last 24 Hours 12/04/18 12/04/18 12/04/18 12/04/18 18:19 18:30 18:35 18:50 Temp 98.4 Pulse 99 86 89 81 Resp 18 B/P (MAP) 199/132 176/122 (140) Pulse Ox 93 91 90 90 O2 Delivery Room Air 12/04/18 12/04/18 12/04/18 12/04/18 18:55 19:00 19:10 19:25 Pulse 85 88 99 B/P (MAP) 144/108 (120) Pulse Ox 90 93 92 12/04/18 12/04/18 19:30 19:40 Pulse 90 B/P (MAP) 156/115 (129) Pulse Ox 90 Physical Exam General Appearance: The patient is alert, has no immediate need for airway protection and no current signs of toxicity. BP 199/132, otherwise vital signs are unremarkable HEENT: Pupils equal and round no injection. TMs normal, oropharynx without redness or exudate, mucous. Membranes are moist Respiratory: Chest is non tender, lungs are clear to auscultation. Cardiac: regular rate and rhythm Gastrointestinal: Abdomen is soft and non tender, no masses, bowel sounds normal. Musculoskeletal: Neck: Neck is supple and non tender. Extremities have full range of motion and are non tender. There are Band-Aids on her right forearm where her AV fistula is. A thrill is noted Skin: No rashes or lesions. DIFFERENTIAL DIAGNOSIS: After history and physical exam differential diagnosis was considered for headache including but not limited to subarachnoid hemorrhage, migraine headache, tension headache and infectious causes such as meningitis, hypertension, postdialysis headache ,pharyngitis and sinusitis. Medical Decision Making ED Course/Re-evaluation ED Course Patient was admitted to an examination room. H&P was done. The differential diagnoses was considered. Patient with a nonfocal examination. She has elevated blood pressure after dialysis. She has a headache and some dizziness. He is also nauseated, but she has chronic nausea. She is prescribed pro methazine think that Zofran has much effect on her. Patient was medicated orally with hydralazine 10 mg, Phenergan 25 mg and Tylenol 650 mg for her headache. On reevaluation, her blood pressure came down nicely to 144/108. She still complaining of nausea, was given Zofran 4 mg sublingual. Decision to Disposition Date: December 04, 2018 Decision to Disposition Time: 18:28 Depart Departure Latest Vital Signs Vital Signs Date Time Temp Pulse Resp B/P (MAP) Pulse Ox O2 Delivery O2 Flow Rate FiO2 12/04/18 19:40 90 90 12/04/18 19:30 156/115 (129) 12/04/18 18:19 98.4 18 Room Air Impression: Primary Impression: Headache Additional Impressions: Hypertension Hemodialysis patient Condition: Improved Disposition: HOME OR SELF-CARE Referrals: THOM HOLLINS MD (PCP) New Scripts Promethazine Hcl (PROMETHAZINE HCL) 25 Mg Tablet 25 MG PO Q4H PRN for NAUSEA/VOMITING, #30 TAB Prov: KIMBERLI ELIZONDO DO 12/04/18 Patient Instructions: Acute Headache (ED), Acute Nausea and Vomiting (ED), Hypertension (ED) Additional Instructions: Follow-up with your primary care if unimproved in 3-5 days Problem Qualifiers Primary Impression: Headache Headache type: unspecified Headache chronicity pattern: acute headache Intractability: not intractable Qualified Codes: R51 - Headache Additional Impressions: Hypertension Hypertension type: renovascular hypertension Qualified Codes: I15.0 - Renovascular hypertension KIMBERLI ELIZONDO DO December 04, 2018 18:16
[2018-12-04] MEDS ORDERED: PROMETHAZINE HCL 25 MG TAB PO ONE (18:25)
[2018-12-04] MEDS ORDERED: ACETAMINOPHEN 325 MG TAB PO ONE (18:25)
[2018-12-04] MEDS ORDERED: hydrALAZINE HCL 10 MG TAB PO ONE (18:25)
[2018-12-04] MEDS ORDERED: ONDANSETRON 4 MG ODT TABDP SL ONE (19:05)
[2018-12-04 19:30] VITALS: BP 156/115
[2018-12-04] MEDS ORDERED: PROM-110 PO (19:35)
[2018-12-04] MEDS ORDERED: PROMETHAZINE HCL 25 MG TAB TH 2 TAB/BOTTLE PO ONE (19:35)
== END 2018-12-04 19:53 | disposition home or self-care (01) ==
LOC: ER 18:20
DX: R51 Headache (principal); I10 Essential (primary) hypertension; Z99.2 Dependence on renal dialysis
CPT/HCPCS: 99283; A9270; Q0162; Q0169; S0119

== ENCOUNTER 2019-02-07 10:08 | Emergency (ER) | payer MEDICARE, MEDICAID ==
[2016-01-11 12:26] VITALS: Wt 68.0 kg
[~2019-02-07 10:08] MED LIST changes: -CALC-488 PO; +CALC-743 PO; +CALC667T PO; -CALC667T3 PO; -RANI-366 PO; +RANI-54 PO
--- NOTE | 2019-02-07 10:11 | ER Report ---
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 Patient has a history significant for renal failure on dialysis intermittently noncompliant. Last dialysis was on Friday. Patient does have a history of intermittent fluid overload. Patient is hemodynamically stable at time of evaluation, oxygen level has been greater than 92% on room air with no signs of respiratory distress. Patient also reports intermittent midsternal chest pain which is not currently present. REVIEW OF SYSTEMS: Constitutional: No fever, no chills. Eyes: No discharge. ENT: No sore throat. Cardiovascular: + Midsternal chest pain, no palpitations. Respiratory: No cough, + shortness of breath. Gastrointestinal: No abdominal pain, no vomiting. Genitourinary: No hematuria. Musculoskeletal: No back pain. Skin: No rashes. Neurological: No headache. Allergies: Coded Allergies: Cephalosporins (Verified Allergy, Unknown, RASH, 12/04/18) cefixime (Verified Allergy, Unknown, RASH, 12/04/18) ceftazidime (Verified Allergy, Unknown, HIVES, 12/04/18) cephalexin (Verified Allergy, Unknown, RASH, 12/04/18) gluten (Verified Allergy, Unknown, 12/04/18) nystatin (Verified Allergy, Unknown, HIVES, 12/04/18) Gadolinium-Containing Contrast Medi (Verified Adverse Reaction, Unknown, 12/04/18) ESRD Home Meds Reported Medications Fluoxetine Hcl (PROZAC) 40 Mg Capsule, 40 MG PO QDAY, CAPSULE 02/07/19 Calcium Carbonate (TUMS ULTRA) 400 Mg Tab.chew, 4000 MG PO QHS, TAB.CHEW 11/30/18 Calcium Carbonate (Tums Ultra Strength) 1,177 Mg Tab.chew, 4000 MG CHEW TIDCF 09/30/18 Olanzapine (ZYPREXA) 15 Mg Tablet, 15 MG PO QDAY take pre dialysis 03/02/18 Levetiracetam (LEVETIRACETAM) 500 Mg Tab.er.24h, 500 MG PO QDAY, TAB 01/21/18 Olanzapine (OLANZAPINE) 2.5 Mg Tablet, 2.5 MG PO mon,wed,fri06/23/17 Ranitidine Hcl (ZANTAC) 150 Mg Tablet, 150 MG PO BID, TAB 06/07/17 Guanfacine Hcl (INTUNIV) 2 Mg Tab.er.24h, 2 MG PO DAILY 05/15/17 Albuterol Sulfate (VENTOLIN HFA) 18 Gm Inh, 1-2 PUFF INH 3-4XD, INH 05/09/17 Diphenhydramine Hcl (BENADRYL) 25 Mg Capsule, 50 MG PO BID PRN for ANXIETY, CAPSULE 01/04/15 Folic Acid/Vitamin B Comp W-C (RENAL CAPS SOFTGEL) 1 Mg Capsule, 1 MG PO DAILY, CAPSULE 08/10/14 Melatonin (MELATONIN) 3 Mg Tablet.er, 6 MG PO QHS PRN for SLEEP TAKE 6 MG (2 TABS) AT BEDTIME NEEDED FOR SLEEP 11/08/13 Discontinued Reported Medications Fluoxetine Hcl (PROZAC) 20 Mg Capsule, 20 MG PO QDAY, CAPSULE 06/04/17 Hx Smoking: No Smoking Status: Never Smoker Exposure to Second Hand Smoke?: No Hx Substance Use Disorder: No Hx Alcohol Use: No Constitutional Vital Sign - Last 24 Hours 02/07/19 02/07/19 02/07/19 02/07/19 10:11 10:46 10:46 10:50 Temp 98.5 Pulse 103 98 101 Resp 16 18 18 B/P (MAP) 106/76 Pulse Ox 93 90 O2 Delivery Room Air Room Air 02/07/19 02/07/19 02/07/19 11:10 11:10 11:23 Pulse 94 99 Resp 18 18 Pulse Ox 90 O2 Delivery Room Air Physical Exam General Appearance: The patient is alert, has no immediate need for airway protection and no signs of toxicity. No acute distress Eyes: Pupils equal and round no pallor or injection. ENT, Mouth: Mucous membranes are moist. Respiratory: There are no retractions, lungs are clear to auscultation. SPO2 greater than 92% Cardiovascular: Regular rate and rhythm. Gastrointestinal: Abdomen is soft and non tender, no masses, bowel sounds normal. Neurological: No focal neurological deficits on examination Skin: Warm and dry, no rashes. Musculoskeletal: Neck is supple non tender. Extremities are nontender, nonswollen and have full range of motion. [ ] DIFFERENTIAL DIAGNOSIS: After history and physical exam differential diagnosis was considered for shortness of breath including but not limited to pulmonary infectious process, COPD, asthma, pulmonary embolus and congestive heart failure. Medical Decision Making Data Points Result Diagram: 02/07/19 1045 02/07/19 1045 Laboratory Hematology Test 02/07/19 10:45 White Blood Count 7.8 k/uL (4.5-11.0) Red Blood Count 3.78 M/uL (4.17-5.56) L Hemoglobin 12.5 g/dL (12.0-16.0) Hematocrit 36.3 % (34.0-47.0) Mean Corpuscular Volume 96.0 fL (80.0-96.0) Mean Corpuscular Hemoglobin 32.9 pg (26.0-33.0) Mean Corpuscular Hemoglobin Concent 34.3 g/dL (32.0-36.0) Red Cell Distribution Width 13.8 % (11.5-14.5) Platelet Count 233 K/uL (150-450) Mean Platelet Volume 8.4 fL (7.2-11.1) Neutrophils (%) (Auto) 50.9 % (39.4-72.5) Lymphocytes (%) (Auto) 36.1 % (17.6-49.6) Monocytes (%) (Auto) 8.7 % (4.1-12.4) Eosinophils (%) (Auto) 3.2 % (0.4-6.7) Basophils (%) (Auto) 1.1 % (0.3-1.4) Nucleated RBC Relative Count (auto) 0.0 /100WBC Neutrophils # (Auto) 4.0 K/uL (2.0-7.4) Lymphocytes # (Auto) 2.8 K/uL (1.3-3.6) Monocytes # (Auto) 0.7 K/uL (0.3-1.0) Eosinophils # (Auto) 0.3 K/uL (0.0-0.5) Basophils # (Auto) 0.1 K/uL (0.0-0.1) Nucleated RBC Absolute Count (auto) 0.00 K/uL Chemistry Test 02/07/19 10:45 Sodium Level 137 mmol/L (137-145) Potassium Level 4.7 mmol/L (3.5-5.0) Chloride Level 89 mmol/L (98-107) Carbon Dioxide Level 25 mmol/L (22-31) Blood Urea Nitrogen 60 mg/dl (7-18) Creatinine 10.10 mg/dl (0.52-1.04) Glomerular Filtration Rate Calc 4.9 Random Glucose 95 mg/dl (75-110) Calcium Level 9.6 mg/dl (8.4-10.2) Total Bilirubin 0.5 mg/dl (0.2-1.3) Aspartate Amino Transf (AST/SGOT) 20 U/L (0-35) Alanine Aminotransferase (ALT/SGPT) 21 U/L (0-56) Alkaline Phosphatase 71 U/L (0-126) Troponin I < 0.012 ng/ml B-Type Natriuretic Peptide 14 pg/ml (0-100) Total Protein 8.3 g/dl (6.3-8.2) Albumin 4.9 g/dl (3.5-5.0) EKG/Imaging EKG Interpretation PATIENT NAME: ANAND CORDOVA : [id number] MR: [id number] V: [id number] EXAM DATE: ORDERING PHYSICIAN: THOMAS BAUMAN TECHNOLOGIST: Test Reason : SOB Blood Pressure : / mmHG Vent. Rate : 099 BPM Atrial Rate : 099 BPM P-R Int : 170 ms QRS Dur : 082 ms QT Int : 374 ms P-R-T Axes : 031 019 018 degrees QTc Int : 479 ms Normal sinus rhythm Normal ECG When compared with ECG of 07-FEB-2018 06:40, Previous ECG has undetermined rhythm, needs review Nonspecific T wave abnormality now evident in Inferior leads T wave amplitude has decreased in Anterolateral leads Referred By: Confirmed By: Imaging PATIENT NAME: Anand Cordova : 1995 MR: [id number] V: [id number] EXAM DATE: ORDERING PHYSICIAN: THOMAS BAUMAN TECHNOLOGIST: Location: Patient: Anand Cordova : 1995 Visit/Account:[id number] Date of Sevice: 02/07/2019 CHEST PA LAT HISTORY: Respiratory distress. COMPARISON: February 07, 2018. FINDINGS: Cardiomediastinal contours: The heart size is normal. Lungs and pleura: There is no finding of an infiltrate, lymphadenopathy or pleural effusion. Bones/soft tissues: There are no findings of a fracture. IMPRESSION: Normal chest x-ray without findings of acute disease. ED Course/Re-evaluation ED Course Patient is a 23-year-old female with a history of end-stage renal disease on dialysis here with complaints of transient episode of shortness breath this morning at approximately 4:30. Chest x-ray showed no acute intrathoracic findings, there are no signs of consolidation, pulmonary edema. Troponin was negative. Electrolytes are stable, there was no leukocytosis, physical exam was unremarkable, lungs are clear to auscultation. DuoNeb was administered. Patient maintained SPO2 greater than 92% on room air. Recommend keeping appointment with dialysis tomorrow. Recommend close PCP follow-up within 24 hours for reevaluation. Return precautions provided. Prescription for prednisone given. Decision to Disposition Date: Feb 07, 2019 Decision to Disposition Time: 12:02 Depart Departure Latest Vital Signs Vital Signs Date Time Temp Pulse Resp B/P (MAP) Pulse Ox O2 Delivery O2 Flow Rate FiO2 02/07/19 11:23 99 18 02/07/19 11:10 90 Room Air 02/07/19 10:11 98.5 106/76 Impression: Primary Impression: Dyspnea Condition: Improved Disposition: HOME OR SELF-CARE Referrals: THOM HOLLINS MD (PCP) New Scripts Prednisone (PREDNISONE) 50 Mg Tablet 50 MG PO QDAY for 3 Days, #3 TAB Prov: THOMAS BAUMAN DO 02/07/19 Patient Instructions: Dyspnea (GEN) Additional Instructions: Please keep all scheduled appointments, your chest x-ray did not show signs of fluid on the lungs are infection. Please take prednisone 1 tablet daily for 3 days. Please attend dialysis tomorrow. Please follow-up in the next 24-48 hours with your primary care provider. Please return immediately if you develop recurrent episodes of shortness of breath, fevers, chills, chest pains, inability to keep down food or fluids. THOMAS BAUMAN DO Feb 07, 2019 10:11
[2019-02-07] MEDS: ALBUTEROL/IPRATROPIUM 3 ML NEB NEB SCH ×2 (10:46→11:09)
[2019-02-07] MEDS ORDERED: FLUO40CA76 PO (10:53)
--- NOTE | 2019-02-07 11:04 | EKG ---
FACILITY: [facility] PATIENT NAME: ANAND GROSS : [id number] MR: [id number] V: [id number] EXAM DATE: ORDERING PHYSICIAN: THOMAS BAUMAN TECHNOLOGIST: Test Reason : SOB Blood Pressure : / mmHG Vent. Rate : 099 BPM Atrial Rate : 099 BPM P-R Int : 170 ms QRS Dur : 082 ms QT Int : 374 ms P-R-T Axes : 031 019 018 degrees QTc Int : 479 ms Normal sinus rhythm Normal ECG When compared with ECG of 07-FEB-2018 06:40, Diffuse T wave amplitude decrease Confirmed by GRAEME AVILEZ ([id number]) on 02/07/2019 2:41:25 PM Referred By: Confirmed By:GRAEME AVILEZ
[2019-02-07 11:11] LABS: PLATELET COUNT, AUTOMATED 233 K/uL (150-450)
--- NOTE | 2019-02-07 11:20 | RADIOLOGY IMAGING REPORT ---
FACILITY: [facility] PATIENT NAME: Sole Cordova : 1995 MR: [id number] V: [id number] EXAM DATE: ORDERING PHYSICIAN: THOMAS BAUMAN TECHNOLOGIST: Location: [facility] Patient: Sole Cordova : 1995 Visit/Account:[id number] Date of Sevice: 02/07/2019 CHEST PA LAT HISTORY: Respiratory distress. COMPARISON: February 07, 2018. FINDINGS: Cardiomediastinal contours: The heart size is normal. Lungs and pleura: There is no finding of an infiltrate, lymphadenopathy or pleural effusion. Bones/soft tissues: There are no findings of a fracture. IMPRESSION: Normal chest x-ray without findings of acute disease. Report Dictated By: Eugene Gutiérrez MD at 02/07/2019 11:11 AM Report E-Signed By: Eugene Gutiérrez MD at 02/07/2019 11:12 AM [id number]
[2019-02-07] MEDS ORDERED: PRED50TA22 PO (12:04)
[2019-02-07 12:32] VITALS: BP 132/82
== END 2019-02-07 12:32 | disposition home or self-care (01) ==
LOC: ER 10:11
DX: R06.02 Shortness of breath (principal)
CPT/HCPCS: 71046; 82803; 83880; 84484; 85025; 93005; 94640; 99284; J7620; 82040; 82247; 82310; 82374; 82435; 82565; 82947; 84075; 84132; 84155; 84295; 84450; 84460; 84520

== ENCOUNTER 2019-03-03 04:20 | Emergency (ER) | payer MEDICAID, MEDICARE ==
[2016-01-11 12:26] VITALS: Wt 68.0 kg
[~2019-03-03 04:20] MED LIST changes: +FLUO40CA76 PO; +PRED50TA22 PO
[2019-03-03 04:24] VITALS: BP 142/109
--- NOTE | 2019-03-03 04:43 | ER Report ---
History and Physical Time Seen By MD: 04:38 Hx. of Stated Complaint: patient states she started having pain in left hand between her middle and ringer finger that radiates up her left arm all the way to her shoulder. patient state she was doing anything when pain began. patient states numbness in between left middle and ringer finger. HPI/ROS CHIEF COMPLAINT: left hand/wrist/arm pain. HISTORY OF PRESENT ILLNESS: This is a 23 year old female. Having pain in the hand/wrist area starting today. Associated numbness in 3rd finger and part of 4th finger. Pain worsens with movement of the wrist and hand. Has not taken any medicines for this. Pain does shoot up arm to shoulder. Also with some pain with movement of the shoulder, but not specific with motions. Denies any injuries. Nothing she is doing that would be repetitive or overuse. No cough or shortness of breath. No chest pain. No abdominal pain, nausea or vomiting. No problems wit h urination or bowels. She is on dialysis without any changes to medications. Allergies: Coded Allergies: Cephalosporins (Verified Allergy, Unknown, RASH, 03/03/19) cefixime (Verified Allergy, Unknown, RASH, 03/03/19) ceftazidime (Verified Allergy, Unknown, HIVES, 03/03/19) cephalexin (Verified Allergy, Unknown, RASH, 03/03/19) gluten (Verified Allergy, Unknown, 03/03/19) nystatin (Verified Allergy, Unknown, HIVES, 03/03/19) Gadolinium-Containing Contrast Medi (Verified Adverse Reaction, Unknown, 03/03/19) ESRD Home Meds Active Scripts Prednisone (PREDNISONE) 20 Mg Tablet, 40 MG PO QDAY for 4 Days, #8 TAB 0 Refills Prov:EDWIN LY MD 03/03/19 Reported Medications Fluoxetine Hcl (PROZAC) 40 Mg Capsule, 40 MG PO QDAY, CAPSULE 02/07/19 Calcium Carbonate (TUMS ULTRA) 400 Mg Tab.chew, 4000 MG PO QHS, TAB.CHEW 11/30/18 Calcium Carbonate (Tums Ultra Strength) 1,177 Mg Tab.chew, 4000 MG CHEW TIDCF 09/30/18 Olanzapine (ZYPREXA) 15 Mg Tablet, 15 MG PO QDAY take pre dialysis 03/02/18 Levetiracetam (LEVETIRACETAM) 500 Mg Tab.er.24h, 500 MG PO QDAY, TAB 01/21/18 Olanzapine (OLANZAPINE) 2.5 Mg Tablet, 2.5 MG PO mon,wed,fri06/23/17 Ranitidine Hcl (ZANTAC) 150 Mg Tablet, 150 MG PO BID, TAB 06/07/17 Guanfacine Hcl (INTUNIV) 2 Mg Tab.er.24h, 2 MG PO DAILY 05/15/17 Albuterol Sulfate (VENTOLIN HFA) 18 Gm Inh, 1-2 PUFF INH 3-4XD, INH 05/09/17 Diphenhydramine Hcl (BENADRYL) 25 Mg Capsule, 50 MG PO BID PRN for ANXIETY, CAPSULE 01/04/15 Folic Acid/Vitamin B Comp W-C (RENAL CAPS SOFTGEL) 1 Mg Capsule, 1 MG PO DAILY, CAPSULE 08/10/14 Melatonin (MELATONIN) 3 Mg Tablet.er, 6 MG PO QHS PRN for SLEEP TAKE 6 MG (2 TABS) AT BEDTIME NEEDED FOR SLEEP 11/08/13 Discontinued Scripts Prednisone (PREDNISONE) 50 Mg Tablet, 50 MG PO QDAY for 3 Days, #3 TAB Prov:THOMAS BAUMAN DO 02/07/19 Reviewed Nurses Notes: Yes Hx Smoking: No Smoking Status: Never Smoker Exposure to Second Hand Smoke?: No Hx Substance Use Disorder: No Hx Alcohol Use: No Constitutional Vital Sign - Last 24 Hours 03/03/19 04:24 Temp 98.3 Pulse 76 Resp 24 B/P (MAP) 142/109 Pulse Ox 94 Physical Exam General: Alert, no acute distress. Skin: Normal, dry, warm, no swelling, no skin breakdown. Musculoskeletal: Some pain with palpation of the hand/wrist area. Movement of the wrist makes the pain worse and shoots up arm. Has some pain in shoulder with range of motion as well, mainly with abduction and internal rotation. Neuro: Numbness in 3rd finger and part of 4th. Positive Tinnels sign at wrist. Positive phalen test at the wrist. Cardiovascular: Normal pulses and capillary refill. Medical Decision Making ED Course/Re-evaluation ED Course Based on exam, she appears to have signs of carpal tunnel syndrome and does have some additional shoulder pain that seems non-specific, but likely inflammatory involving the rotator cuff. No explanation for the pain. She cannot have NSAIDs, but we can try a 4 day course of Prednisone to see if this will help her pain. Also recommended trial of compression around wrist with JUANPABLO wrap and use of heat/ice. Decision to Disposition Date: Mar 03, 2019 Decision to Disposition Time: 04:46 Depart Departure Latest Vital Signs Vital Signs Date Time Temp Pulse Resp B/P (MAP) Pulse Ox O2 Delivery O2 Flow Rate FiO2 03/03/19 04:24 98.3 76 24 142/109 94 Impression: Primary Impression: Carpal tunnel syndrome of left wrist Condition: Improved Disposition: HOME OR SELF-CARE Referrals: THOM HOLLINS MD (PCP) New Scripts Prednisone (PREDNISONE) 20 Mg Tablet 40 MG PO QDAY for 4 Days, #8 TAB 0 Refills Prov: EDWIN LY MD 03/03/19 Patient Instructions: Carpal Tunnel Syndrome (GEN), Shoulder Pain (ED) Additional Instructions: The pain in your wrist/hand with some numbness appears to be what we call carpal tunnel syndrome. Try using the JUANPABLO wrap for compression intermittently through the day and at nighttime. Apply ice every 1-2 hours for about 20 minutes. We are going to give you a 4 day course of Prednisone 20mg tablets, 2 tablets once a day. This may also help the shoulder pain. Follow-up with your regular doctor or with orthopedic surgery if not improving. EDWIN LY MD Mar 03, 2019 04:42
[2019-03-03] MEDS ORDERED: PRED20TA6 PO (04:54)
== END 2019-03-03 05:07 | disposition home or self-care (01) ==
LOC: ER 04:33
DX: G56.02 Carpal tunnel syndrome, left upper limb (principal)
CPT/HCPCS: 99282

== ENCOUNTER → 2019-03-08 | Outpatient (REF) | payer MEDICARE ==
[2016-01-11 12:26] VITALS: BMI 21.8
== END ==
LOC: ZZSENDIN 17:02
PROVIDERS: ATTEND Nurse Practitioner Psychiatric/Mental Health
DX: R53.83 Other fatigue (principal); Z79.899 Other long term (current) drug therapy
CPT/HCPCS: 82040; 82247; 82306; 82310; 82374; 82435; 82465; 82565; 82728; 82947; 83718; 84075; 84132; 84155; 84295; 84439; 84443; 84450; 84460; 84478; 84480; 84520